=== PATIENT | male | born 1955 | race Caucasian/White ===

== ENCOUNTER 2021-10-26 09:32 | Outpatient (CLI) | payer MEDICAID, SELFPAY | END 2021-10-26 09:33 | disposition home or self-care (01) | LOC: NFLDREF 09:33 | PROVIDERS: PCP Physician Assistant Medical; Visit Provider Physician Assistant Medical | DX: Z00.00 Encounter for general adult medical examination without abnormal findings (principal); E78.5 Hyperlipidemia, unspecified; R51.9 Headache, unspecified; I10 Essential (primary) hypertension; G51.31 Clonic hemifacial spasm, right | CPT/HCPCS: 80053; 80061; 84153 ==

== ENCOUNTER 2021-11-04 06:59 | Outpatient (CLI) | payer MEDICAID, SELFPAY ==
--- NOTE | 2021-11-04 08:15 | CRLHL7_ITS ---
For Patients: As a result of the Century Cures Act, medical imaging exams and procedure reports are released immediately into your electronic medical record. You may view this report before your referring provider. If you have questions, please contact your health care provider. DATE: 11/04/2021. CLINICAL HISTORY: Headaches. TECHNIQUE: Multi-sequence, multiplanar MRI examination of the brain was performed. Contrast: 15mL of Dotarem administered intravenously. COMPARISON: None available. FINDINGS: There is no restricted diffusion in the brain to indicate the presence of acute ischemia. No extra-axial collection, mass effect, or midline shift. Scattered foci of T2 prolongation within the white matter of both hemispheres, nonspecific but most likely reflecting sequela of chronic small vessel ischemia. Parenchymal volume is within normal limits for patient age. Ventricles are normal in size and morphology. There is no pathologic intracranial enhancement. The orbits are unremarkable. The paranasal sinuses are unremarkable. The mastoid air cells are clear. The calvarium is unremarkable. IMPRESSION: 1. No acute intracranial abnormality. 2. Scattered T2 hyperintense foci within the white matter of both hemispheres. This is nonspecific but most likely reflects sequela of chronic small vessel ischemia. Dictated by Rikki Lindsay MD @ 11/06/2021 12:38:00 PM (Electronically Signed)
--- NOTE | 2021-11-04 15:00 | CRLHL7_ITS ---
For Patients: As a result of the Cures Act, medical imaging exams and procedure reports are released immediately into your electronic medical record. You may view this report before your referring provider. If you have questions, please contact your health care provider. INDICATION: Headaches. COMPARISON: None. TECHNIQUE: The carotid circulations and the vertebral arteries in the neck were examined with prakash-scale ultrasound, color-flow and Doppler spectral analysis. Degrees of stenosis were determined using SRU 2002 Consensus Panel Criteria. FINDINGS: Sonographic images demonstrate no evidence of atherosclerotic plaque formation or suspicious soft tissue mass. There was antegrade blood flow demonstrated within the vertebral arteries and the subclavian arteries demonstrate a normal triphasic waveform. The spectral Doppler tracings of the common carotid, internal and external carotid arteries demonstrate no abnormal turbulence or spectral broadening. There was no significant elevation of peak systolic blood flow which would indicate a hemodynamically significant stenosis by NASCET criteria. The ICA/CCA peak systolic velocity ratio measures 1.0 on the right and 1.0 on the left. IMPRESSION: Normal carotid ultrasound. Dictated by Henry Griggs MD @ 11/04/2021 9:24:47 AM (Electronically Signed)
== END 2021-11-04 07:00 | disposition home or self-care (01) ==
PROVIDERS: PCP Physician Assistant Medical; Visit Provider Physician Assistant Medical
DX: R51.9 Headache, unspecified (principal); I67.82 Cerebral ischemia; G51.31 Clonic hemifacial spasm, right
CPT/HCPCS: 70553; 93880

== ENCOUNTER 2021-12-30 09:14 | Outpatient (CLI) | payer MEDICAID, SELFPAY ==
[2021-12-30 10:30] LABS: Albumin* 4.4 g/dL (3.3-5.0)
[2021-12-30 10:31] LABS: Chloride* 104 mmol/L (96-114); Potassium* 4.4 mmol/L (3.6-5.1); Sodium* 136 mmol/L (135-149)
[2021-12-30 10:33] LABS: Bilirubin Total* 0.5 mg/dL (0.1-1.5); Blood Urea Nitrogen* 15 mg/dL (7-30); Cholesterol* 261 mg/dL (90-199); Creatinine* 0.7 mg/dL (0.5-1.5); Estimated Glomerular Filt Rate 103 ml/min; Total Protein* 7.3 g/dL (6.0-8.3)
[2021-12-30 10:34] LABS: Alanine Aminotransferase* 17 U/L (4-50); Alkaline Phosphatase* 107 U/L (40-150); Aspartate Amino Transferase* 21 U/L (12-35); Calcium* 9.4 mg/dL (8.4-10.6); Glucose* 113 mg/dL (60-115); HDL Cholesterol* 47 mg/dL (>=40); LDL Cholesterol Calculated 190 mg/dL (<100); Triglycerides* 121 mg/dL (40-149)
[2021-12-30 10:59] LABS: Carbon Dioxide* 25 mmol/L (20-32)
== END 2021-12-30 09:15 | disposition home or self-care (01) ==
PROVIDERS: PCP Physician Assistant Medical; Visit Provider Physician Assistant Medical
DX: E78.5 Hyperlipidemia, unspecified (principal); I10 Essential (primary) hypertension
CPT/HCPCS: 80053; 80061

== ENCOUNTER 2022-10-03 15:15 | Outpatient (CLI) | payer MEDICARE, MEDICAID, SELFPAY | END 2022-10-03 15:16 | disposition home or self-care (01) | PROVIDERS: PCP Physician Assistant Medical; Visit Provider Physician Assistant Medical | DX: E78.5 Hyperlipidemia, unspecified (principal); I10 Essential (primary) hypertension; R71.8 Other abnormality of red blood cells; R10.9 Unspecified abdominal pain; R73.09 Other abnormal glucose | CPT/HCPCS: 80053; 82607; 82746; 86334 ==

== ENCOUNTER 2022-11-21 20:39 | Outpatient (CLI) | payer OTHER, SELFPAY ==
--- NOTE | 2022-12-07 09:55 | W.PM.SLEEP ---
Sleep Study Details Details Interpreting Provider: Ijeoma Date of Sleep Study: 11/21/22 Sleep Study Details: STUDY TYPE:? Hospital-based without CPAP titration ? BMI:? 32.4 ORDERING PROVIDER:? Rasheed INDICATION:? Concerns about sleep apnea ? SLEEP SUMMARY:? Total sleep time 325 minutes, efficiency 70.7, arousal index 22.3 RESPIRATORY SUMMARY:? Mean oxygen awake 95 asleep 94 minimum 87. 0.1 minute oxygen between 80 and 88% AHI 5.2, RDI 14.6 Supine AHI 7.6, supine RDI 24.4 Nonsupine AHI 3.9, nonsupine RDI 9.5 Supine REM AHI 4.4 PERIODIC LIMB MOVEMENTS OF SLEEP:? Index 53.5, index with arousal 3.5 CARDIAC:? Awake 61, asleep 54, no arrhythmias noted IMPRESSION:? Mild obstructive sleep apnea with supine position dependency. RECOMMENDATION: If patient is symptomatic treatment could consist of AutoSet CPAP, airway expansion surgery, or dental appliance.
== END 2022-11-21 20:40 | disposition home or self-care (01) ==
LOC: SLEEP 20:40
PROVIDERS: PCP Physician Assistant Medical; Visit Provider Physician Assistant Medical
DX: G47.33 Obstructive sleep apnea (adult) (pediatric) (principal)
CPT/HCPCS: 95810

== ENCOUNTER 2023-10-26 09:49 | Outpatient (CLI) | payer OTHER, SELFPAY ==
--- OUTSIDE RECORDS SUMMARY | 2023-10-26 09:53 | XMS_ITS | Clinical Summary ---
Author Organization [employer] [facility] Address [place], [place] [address] Care Team Providers Care Out Of School Hours Care Worker Name Role Phone Pcp, No Primary Care Provider Unavailabl e Social History Tobacco Use Types Packs/Day Years Used Date Smoking Tobacco: Never Assessed Sex and Gender Information Value Date Recorded Sex Assigned at Not on file Gender Identity Not on file Sexual Orientation Not on file Plan of Treatment Health Maintenance Due Date Last Done Comments Tdap 1968 Depression screening for age 12+ 1969 BMI (ht and wt on same day) for age 18+ 08/30/1975 Hepatitis C screening for age 18-79 08/30/1975 Tetanus booster 1977 Colonoscopy through age 75 2002 Lipids for age 45-75 2002 Zoster (shingles) series for age 50+ (1 of 2) 08/30/19 08 Medicare Wellness for age 65+ 2022 Pneumococcal series for age 65+ (1 of 1 - PCV) 023 COVID-19 vaccine series ( - 2022-24 season) 3 Influenza for age 65+ 12/10/2023 Care Teams Out Of School Hours Care Worker Relationship Specialty Start Date End Date Pcp, No . PCP - General 10/06/22
== END 2023-10-26 09:50 | disposition home or self-care (01) ==
PROVIDERS: PCP Physician Assistant Medical; Visit Provider Physician Assistant Medical
DX: E78.5 Hyperlipidemia, unspecified (principal); I10 Essential (primary) hypertension; Z12.5 Encounter for screening for malignant neoplasm of prostate; Z13.29 Encounter for screening for other suspected endocrine disorder; Z11.59 Encounter for screening for other viral diseases
CPT/HCPCS: 80053; 80061; 84443; 86703; 86803; 87086; G0103

== ENCOUNTER 2023-11-07 08:17 | Outpatient (CLI) | payer OTHER, SELFPAY ==
--- OUTSIDE RECORDS SUMMARY | 2023-11-07 08:19 | XMS_ITS | Clinical Summary ---
Author Organization [employer] [facility] Address [place], [place] [address] Care Team Providers Care Paper Bundler Name Role Phone Pcp, No Primary Care Provider Unavailabl e Encounters Date Type Department Care Team Description 11/01/2023 Transcribe Orders [facility] [address] [place] [id number] Argentina Iqbal PA-C 10/26/2023 Orders Only [facility] Scanner 1 scan: (1-Ord) [facility], LAB RESULTS, 10/26/2023 10/26/2023 Orders Only [facility] Scanner 1 scan: (1-Ord) [facility], LAB RESULTS, 10/26/2023 10/26/2023 Orders Only [facility] Scanner 1 scan: (1-Ord) [facility], LAB RESULTS, 10/26/2023 from Last 3 Months Social History Tobacco Use Types Packs/Day Years Used Date Smoking Tobacco: Never Assessed Sex and Gender Information Value Date Recorded Sex Assigned at Not on file Gender Identity Not on file Sexual Orientation Not on file Plan of Treatment Upcoming Encounters Date Type Department Care Team (Late st Contact Info) Description 11/07/2023 9:00 AM CDT Ancillary Procedure [facility] [address] [place] [address] Health Maintenance Due Date Last Done Comments [...] season) 3 Influenza for age 65+ 12/10/2023 Procedures Procedure Name Priority Date/Time Associated Diagnosis Comments SCAN-LABORATORY REPORT 10/26/2023 12:00 AM CDT SCAN-LABORATORY REPORT 10/26/2023 12:00 AM CDT SCAN-LABORATORY REPORT 10/26/2023 12:00 AM CDT from Last 3 Months Results * SCAN-LABORATORY REPORT (10/26/2023 12:00 AM CDT) Only the most recent of3 resultswithin the time period is included. Scanner OTHER from Last 3 Months Care Teams Paper Bundler Relationship Specialty Start Date End Date Pcp, No . PCP - General 10/06/22
[2023-11-07 10:27] VITALS: BP 160/80; PULSE 81; RESP 18
--- NOTE | 2023-11-07 12:12 | W.PM.STED ---
Stress Test Note Date Date of test: 11/07/23 Providers Primary care provider: Argentina Iqbal Stress test physician: Ryan Perez Stress Test Note Stress test ordered: Stress Myoview Indication for test: Chest pain Results discussion: Patient is a very nice 68-year-old gentleman, presents here for a stress Myoview test. Patient speaks Telugu is interpreted by family member. Indication for test is chest pain. Cardiac stress test medical history form is reviewed. I discussed with the patient the risks benefits and side effects of treatment in you like to proceed. Pretest EKG shows normal sinus rhythm with a ventricular rate of 62 blood pressure 130 and 92[address] No acute ST wave changes are noted. Standard stress protocol is done over a 9 minute. Each evening metabolic equivalent of 10.3 Mets with a maximum heart rate of 140. Is 106% of the maximum. Reason for termination was fulfillment of protocol. He did not develop any chest pain shortness of breath then other than a small amount of fatigue, there were no anginal equivalent symptoms. Review of the tracing did not show any evidence of any dysrhythmias, there is no ST wave changes suggestive ischemia. Impression: Negative electrographic portion of stress Myoview, subjectively negative Follow up suggested: Await nuclear images, clinical correlation with these will be needed. Patient left this testing facility in excellent condition, there were no complications
== END 2023-11-07 11:22 | disposition home or self-care (01) ==
LOC: STRESS 08:17
PROVIDERS: PCP Physician Assistant Medical; Visit Provider Family Medicine
DX: R07.9 Chest pain, unspecified (principal)
CPT/HCPCS: 78452; 93016; 93017; A9500

== ENCOUNTER 2024-01-10 14:33 | Outpatient (CLI) | payer OTHER, SELFPAY ==
--- OUTSIDE RECORDS SUMMARY | 2024-01-10 14:37 | XMS_ITS | Clinical Summary ---
Author Organization [facility] Address [place], [place] [address] Care Team Providers Care Crop Adjuster Name Role Phone Pcp, No Primary Care Provider Unavailabl e Encounters Date Type Department Care Team Description 01/08/2024 2:00 PM CDT Office Visit [facility] [address] [place] [address] Drea Hernandez AuD Hearing Aid (DUMONT check) 01/08/2024 Travel 11/21/2023 Telephone [facility] [address] [place] [address] Cardiology, Anw Appointment (PREVENTION TEAM- [place] location if possible) 11/07/2023 9:00 AM CDT Ancillary Procedure [facility] [address] [place] [address] 11/01/2023 Transcribe Orders [facility] [address] [place] [address] Argentina Camarena PA-C 10/26/2023 Orders Only [facility] Scanner 1 scan: (1-Ord) [facility], LAB RESULTS, 10/26/2023 10/26/2023 Orders Only [facility] Scanner 1 scan: (1-Ord) [facility], LAB RESULTS, 10/26/2023 10/26/2023 Orders Only [facility] Scanner 1 scan: (1-Ord) [facility], LAB RESULTS, 10/26/2023 from Last 3 Months [...] PCV) 023 COVID-19 vaccine series ( - 2023- season) 4 Influenza for age 65+ 12/10/2023 Procedures Procedure Name Priority Date/Time Associated Diagnosis Comments NM CARDIAC MPI STRESS TEST Routine 11/07/2023 12:27 PM CDT Chest pain SCAN-LABORATORY REPORT 10/26/2023 12:00 AM CDT SCAN-LABORATORY REPORT 10/26/2023 12:00 AM CDT SCAN-LABORATORY REPORT 10/26/2023 12:00 AM CDT from Last 3 Months Results * NM CARDIAC MPI STRESS TEST (11/07/2023 12:27 PM CDT) Anatomical Region Laterality Modality HEART Ultrasound 11/07/2023 9:05 AM CDT Narrative 11/07/2023 1:06 PM CDT ? Toll -free: [phone] ?[employer] ?MYOCARDIAL PERFUSION IMAGING REPORT REST/STRESS SINGLE ISOTOPE GATED SPECT IMAGING. Patient Name: ?? NEWTON WILLOUGHBY ? Gender: ? M ? Height: ? 66 in Accession #: ?[id number] ?Weight: ? 213 lb Study Date: ? 11/07/2023 9:05:33 AM ? BSA: ?2.05 m? ? ? : ?1955 68 years ? BMI: ?34.38 kg/m? ? ? Ord. Prov.: ? ARGENTINA CAMARENA ? Monitoring Prov.: Ryan Perez [facility] Clinical History: ? Chest pain. No known coronary artery disease. Cardiac Risk Factors: Hypertension and hypercholesterolemia. Cardiac History: ?None known. Beta robyn/calcium channel robyn/nitrate taken today: No. Caffeine/methylxanthine taken within 12 hrs: ?No. Chest pain/discomfort at baseline: ?No. IMPRESSION 1. Myocardial perfusion was normal. 2. Overall left ventricular systolic function was normal without wall motion abnormalities. The post stress LVEF was calculated to be 74 %. 3. The peak heart rate was 140 bpm (91% MPHR); peak blood pressure was 204 mmHg/80 mmHg. 4. Left ventricular cavity size was normal (resting EDV 111 ml). 5. See separate report for EKG intrepretation. 6. There were no prior studies available for comparison. STRESS MPI PROCEDURE The patient was studied utilizing a same day rest/stress protocol. Myocardial perfusion imaging was performed at rest, 26 minutes following the intravenous injection of 8.44 mCi of 99mTc sestamibi. At peak exercise, the patient was injected via IV with 29.9 mCi of 99mTc sestamibi and exercise was continued for 1:00 minute. Stress was stopped because of achieving target heart rate . Gated post-stress tomographic imaging was performed 14 minutes after stress. After image acquisition was completed, data was reconstructed in short, horizontal long and vertical long axis views and tomographic slices were generated. Protocol ??Total Time ? MPHR ?Max RPP Max Workload Joey ?? 9:01 minutes 91% of 154 bpm ??[id number] ?? 10.3 METS ? HR ? BP Baseline 59 bpm ??130 mmHg/92 mmHg ?Peak 140 bpm 204 mmHg/80 mmHg FINDINGS Imaging - The overall quality of the study was good with moderate patient motion on rest and stress studies. - SPECT perfusion images were normal without evidence of ischemia or infarction. - Computer processed gated imaging revealed normal left ventricular size with a calculated LVEF of 74 %. (Lab normals: LVEF >50%, LV Size <150 ml). - There was normal post-stress myocardial thickening and wall motion. - No right ventricular abnormalities were identified. - There was no evidence of abnormal lung or extracardiac activity. - Risk/extent of ischemia per ACC Noninvasive Risk Stratification Guideline: LOW RISK. This study was interpreted and electronically signed by Karis Michel MD on 11/07/2023 1:06:31 PM. Report modified by Karis Michel MD on 11/07/2023 1:26:31 PM. ??Final (Updated) ?? Procedure Note Karis Michel MD - 11/07/2023 Toll -free: [phone] [employer] MYOCARDIAL PERFUSION IMAGING REPORT REST/STRESS SINGLE ISOTOPE GATED SPECT IMAGING. Patient Name: NEWTON WILLOUGHBY Gender: Brigido Height: 66 in Weight: 213 lb Study Date: 11/07/2023 9:05:33 AM BSA: 2.05 m? ? ? : 1955 68 years BMI: 34.38kg/m? ? ? Ord. Prov.: ARGENTINA CAMARENA Monitoring Prov.: Ryan Perez Performing Site [facility] Clinical History: Chest pain. No known coronary artery disease. Cardiac Risk Factors: Hypertension and hypercholesterolemia. Cardiac History: None known. Beta robyn/calcium channel robyn/nitrate taken today: No. Caffeine/methylxanthine taken within 12 hrs: No. Chest pain/discomfort at baseline: No. IMPRESSION 1. Myocardial perfusion was normal. 2. Overall left ventricular systolic function was normal without wallmotion abnormalities. The post stress LVEF was calculated to be 74 %. 3. The peak heart rate was 140 bpm (91% MPHR); peak blood pressure ugm574 mmHg/80 mmHg. 4. Left ventricular cavity size was normal (resting EDV 111 ml). 5. See separate report for EKG intrepretation. 6. There were no prior studies available for comparison. STRESS MPI PROCEDURE The patient was studied utilizing a same day rest/stress protocol.Myocardial perfusion imaging was performed at rest, 26 minutes followingthe intravenous injection of 8.44 mCi of 99mTc sestamibi. At peakexercise, the patient was injected via IV with 29.9 mCi of 99mTc sestamibiand exercise was continued for 1:00 minute. Stress was stopped because ofachieving target heart rate . Gated post-stress tomographic imaging wasperformed 14 minutes after stress. After image acquisition was completed,data was reconstructed in short, horizontal long and vertical long axisviews and tomographic slices were generated. Protocol Total Time MPHR Max RPP Max Workload Joey 9:01 minutes 91% of 154 bpm 05924 10.3 METS HR BP Baseline 59 bpm 130 mmHg/92 mmHg Peak 140 bpm 204 mmHg/80 mmHg FINDINGS Imaging - The overall quality of the study was good with moderate patient motionon rest and stress studies. - SPECT perfusion images were normal without evidence of ischemia orinfarction. - Computer processed gated imaging revealed normal left ventricular sizewith a calculated LVEF of 74 %. (Lab normals: LVEF >50%, LV Size <150 ml). - There was normal post-stress myocardial thickening and wall motion. - No right ventricular abnormalities were identified. - There was no evidence of abnormal lung or extracardiac activity. - Risk/extent of ischemia per ACC Noninvasive Risk StratificationGuideline: LOW RISK. This study was interpreted and electronically signed by Karis Michel MD on11/07/2023 1:06:31 PM. Report modified by Karis Michel MD on 11/07/2023 1:26:31 PM. Final (Updated) Argentina Camarena PA-C NM * SCAN-LABORATORY REPORT (10/26/2023 12:00 AM CDT) Only the most recent of3 resultswithin the time period is included. Scanner OTHER from Last 3 Months Care Teams Crop Adjuster Relationship Specialty Start Date End Date Pcp, No . PCP - General 10/06/22
--- NOTE | 2024-01-15 14:01 | ONC.NURNOTE ---
[facility] received referral from PCP, per pump operator platelet count is not low. It would be up to the surgeon to determine if safe to proceed.
== END 2024-01-10 14:34 | disposition home or self-care (01) ==
PROVIDERS: PCP Physician Assistant Medical; Visit Provider Physician Assistant Medical
DX: Z01.818 Encounter for other preprocedural examination (principal); E78.5 Hyperlipidemia, unspecified; D69.6 Thrombocytopenia, unspecified; I10 Essential (primary) hypertension
CPT/HCPCS: 80053; 80061; 85045

== ENCOUNTER 2024-01-15 19:26 | Emergency (ER) | payer OTHER, SELFPAY ==
[2024-01-15 19:36] VITALS: BP 151/86; PULSE 84; RESP 16; TEMP 36.9; O2SAT 98; BMI 31.3
--- NOTE | 2024-01-15 19:52 | ED.GENADULT ---
HPI - General Adult General Chief complaint: Chemical Exposure Stated complaint: hydrolic fluid on face Time Seen by Provider: 01/15/24 19:40 History of Present Illness HPI narrative: This 68-year-old male comes in for evaluation of exposure to a hydraulic fluid prior to arrival. He states that the hose containing the hydraulic fluid failed to hand started to spray. He took some of this fluid into his face and he feels like some of it got into his eye. He did irrigate his eyes with water after this happened. Currently he feels normal except for some mild irritation of his eyes. Related Data Previous Rx's ?Medication ?Instructions ?Recorded losartan 25 mg tablet 25 mg PO QDAY #90 tabs 10/26/23 rosuvastatin 40 mg tablet 40 mg PO QDAY #90 tabs 10/26/23 Allergies Allergy/AdvReac Type Severity Reaction Status Date / Time No Known Drug Allergies Allergy Verified 01/10/24 14:10 Review of Systems Status of ROS: Reports: 10 or more systems reviewed and unremarkable except as noted in History and below Narrative: Constitutional: No fevers, no weight gain or loss. Eyes: No discharge. No vision changes. Mild irritation. HENT: No congestion, no sore throat, no ear pain. Cardiovascular: No chest pain, no palpitations. Respiratory: No shortness of breath, no wheezes, no cough. Gastrointestinal: No abdominal pain, no vomiting, no diarrhea. Genitourinary: No dysuria, no hematuria. Musculoskeletal: Normal range of motion. Skin: No rashes, no pruritis. Neurological: No dizziness, weakness, sensory change, speech change. Endo/Heme/Allergies: No bruising or bleeding. No polydipsia. Pysch: no suicidality, no anxiety, no insomnia. All other systems reviewed and are negative. [facility] Medical History (Updated 01/15/24 @ 20:01 by Kevin Suh MD) Chest pain (~10/2023) ?R07.9 - Chest pain, unspecified (ICD-10) Abnormal red blood cells ?R71.8 - Other abnormality of red blood cells (ICD-10) Family history of colon cancer ?Z80.0 - Family history of malignant neoplasm of digestive organs (ICD-10) Headache ?R51.9 - Headache, unspecified (ICD-10) Family History (Updated 01/10/24 @ 14:45 by Argentina Iqbal PA-C) Father Coronary artery disease Mother High cholesterol Asthma Son Colon cancer Brother Colon cancer High cholesterol Social History (Updated 10/27/21 @ 10:44 by Argentina Iqbal PA-C) Narrative: Patient is . Primary language is Citizen [place]. He has lived most of his life in [place]. . Recently moved to [place], resides with his son Tato and [id number] Nan and their children. 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 HEENT: Normocephalic, atraumatic. Eyes appear normal without any sign of foreign object or erythema. Neck: Normal range of motion. Nontender. Supple. Heart: Regular. No murmurs. Normal rate. Intact distal pulses. Lungs: Clear to auscultation. No chest discomfort. No wheezes, rhonchi, or rales. Abdomen: Normal bowel sounds. Nontender. No rebound tenderness. Genitalia: Deferred. Back: No midline tenderness. Normal range of motion. Extremities: Normal range of motion. No injury. Skin: Intact. No rash. Warm. No erythema or pallor. Neurologic: No altered sensation. No weakness. Alert and oriented. Psychiatric: No suicidality. No anxiety or depression. No insomnia. Nursing notes and vitals signs are reviewed. Const: Vital Signs, click to edit/add: Vital Signs - 24 hr 01/15/24 19:36 Temperature 98.4 F Pulse Rate [Pulse Oximeter] 84 Respiratory Rate 16 Blood Pressure [Ri ght Upper Arm] 151/86 H Pulse Oximetry 98 Oxygen Delivery Me thod Room Air Course Vital Signs Vital signs: Initial Vital Signs Temperature 98.4 F 01/15/24 19:36 Temperature Source Temporal Artery Scan 01/15/24 19:36 Pulse Rate 84 01/15/24 19:36 Respiratory Rate 16 01/15/24 19:36 Blood Pressure 151/86 H 01/15/24 19:36 Blood Pressure Mean 107 H 01/15/24 19:36 Blood Pressure Position Sitting 01/15/24 19:36 Pulse Oximetry 98 01/15/24 19:36 Oxygen Delivery Method Room Air 01/15/24 19:36 Vital Signs Temperature 98.4 F 01/15/24 19:36 Pulse Rate 84 01/15/24 19:36 Respiratory Rate 16 01/15/24 19:36 Blood Pressure 151/86 H 01/15/24 19:36 Pulse Oximetry 98 01/15/24 19:36 Oxygen Delivery Method Room Air 01/15/24 19:36 Temperature 98.4 F 01/15/24 19:36 Pulse Rate 84 01/15/24 19:36 Respiratory Rate 16 01/15/24 19:36 Blood Pressure 151/86 H 01/15/24 19:36 Pulse Oximetry 98 01/15/24 19:36 Oxygen Delivery Method Room Air 01/15/24 19:36 Medical Decision Making MDM Narrative Medical decision making narrative: This patient had exposure to hydraulic fluid in both eyes. He did irrigate for about 5 minutes and states now that he feels minimal discomfort. Poison control was contacted and stated that there is no real concern about this type of fluid it as it is pH is normal. The main treatment is to recommend irrigation. The patient is okay to be discharged home. He did receive a prescription for flurbiprofen ophthalmic solution for symptomatic relief. Discharge Plan Discharge Clinical Impression: Chemical exposure of eye Patient Disposition: Home, Self-Care Additional Instructions: Use medicine as needed and indicated. Activity as tolerated. Follow up with MD return if worsening. Prescriptions: No Action losartan 25 mg tablet 25 mg PO QDAY Qty: 90 3RF rosuvastatin 40 mg tablet 40 mg PO QDAY Qty: 90 3RF Rx Instructions: once daily for cholesterol Follow Up/Referrals: Argentina Iqbal PA-C [Primary Care Provider] - Stand Alone Forms: [employer] Info Instructions
--- OUTSIDE RECORDS SUMMARY | 2024-01-15 20:15 | XMS_ITS | Clinical Summary ---
Author Organization [facility] Address [place], [place] [address] Care Team Providers Care Egg Caser Name Role Phone Pcp, No Primary Care Provider Unavailabl e Encounters Date Type Department Care Team Description 01/11/2024 Lab Requisition [facility] [phone] Argentina Camarena PA-C 01/08/2024 2:00 PM CDT Office Visit [facility] [address] [place] [address] [facility] 01/08/2024 Travel 11/21/2023 Telephone [facility] [place] [address] [facility] [address] [place] [address] Cardiology, Anw Appointment (PREVENTION TEAM- [place] location if possible) 11/07/2023 9:00 AM CDT Ancillary Procedure [facility] [place] [facility] [address] [place] [address] 11/01/2023 Transcribe Orders [facility] [place] [address] [place] [address] Argentina Camarena PA-C 10/26/2023 Orders Only [facility] Scanner 1 scan: (1-Ord) [facility], LAB RESULTS, 10/26/2023 10/26/2023 Orders Only [facility] Scanner 1 scan: (1-Ord) [facility], LAB RESULTS, 10/26/2023 10/26/2023 Orders Only [facility] Scanner 1 scan: (1-Ord) [facility], LAB RESULTS, 10/26/2023 from Last 3 Months [...] 1 - PCV) 023 COVID-19 vaccine series (2023- season) 4 Influenza for age 65+ 12/10/2023 Procedures Procedure Name Priority Date/Time Associated Diagnosis Comments LAB TRACKING EVENT Routine 01/10/2024 3: 12 PM CDT PERIPHERAL BLD MORPHOLOGY Routine 01/10/2024 3:12 PM CDT NM CARDIAC MPI STRESS TEST Routine 11/07/2023 12:27 PM CDT Chest pain SCAN-LABORATORY REPORT 10/26/2023 12:00 AM CDT SCAN-LABORATORY REPORT 10/26/2023 12:00 AM CDT SCAN-LABORATORY REPORT 10/26/2023 12:00 AM CDT from Last 3 Months Results * LAB TRACKING EVENT (01/10/2024 3:12 PM CDT) Other (Other) Client Collect / Unknown 01/10/2024 3:12 PM CDT 01/11/2024 1:16 PM CDT Argentina Camarena PA-C LAB BILL ONLY [facility] LABORAT[facility]-CENTRAL LABORATORY [address] [place] [address], * PERIPHERAL BLD MORPHOLOGY (01/10/2024 3:12 PM CDT) Case Report Special Hematology Report ? Case: [id number] ? Authorizing Provider: ??Argentina Camarena PA-C ?Collected: ? 01/10/2024 1512 ? Ordering Location: ? [facility] ?Received: ?01/11/2024 [facility] ? Pathologist: ? Frankie Srinivasan, ? MD ? Specimen: ?Peripheral Blood ? 01/12/2024 2:27 PM CDT [facility] LABORATORY-C ENTRAL LABORATORY Final Diagnosis PERIPHERAL BLOOD: 1. Minimal thrombocytopenia 2. See comment 01/12/2024 2:27 PM T [facility] Comment The specific etiology of the minimal thrombocytopenia is not evident from the blood smear findings. The platelets are well granulated and show no evidence of increased platelet clumping. No microangiopathic red cell changes are present. No dysgranulopoiesis or circulating blasts are seen. Potential causes of thrombocytopenia include medication effect, infection, autoimmune disease and splenomegaly. Platelet count values between 100 and 150 x 109/L are also found in apparently healthy people, who??have <10% chance of developing more significant thrombocytopenia (persistent platelet count <100 x 109/L) over 10-year follow-up. Reference: Blood 113: 2386, 2009. This case was also reviewed by Desiree Madison [place], MS ([facility]). 01/12/2024 2:27 PM T [facility] Clinical Information The patient is a 68-year-old male. Per CBC scan: Thrombocytopenia. Peripheral blood morphology September 2022 ([id number]) was within normal limits. 01/12/2024 2:27 PM T [facility] CBC and Differential HEMATOLOGY PARAMETERS Tested at: ??[facility] ? RESULTS ??EXPECTED VALUES WBC: ? 6.6 ?4.5-52l3366/cumm ? RBC: ? 4.94 ? 4.30-5.90 mil/cumm HGB: ? 14.4 ? 13.5-17.5 gm/di ? HCT: ? 42.8 ? 37-53% ? MCV: ? 86.6 ? 80-100 fl ? NORMOCYTIC MCH: ? 29.1 ? 26-34 pg ? MCHC: ?33.6 ? 32-36 gm/dl ? NORMOCHROMIC RDW: ? 13.2 ? 11.5-15.5% ? PLT: ? 135 ?140-196a9423/uL ? DECREASED Retic: ?? 2.21 ? 0.5-1.5% ?ELEVATED Differential ?Absolute (%) ?Expected (%) ?(x10*9/L) ? (x10*9/L) Neutrophils: ?3.63 (55.1) ? 1.7-7.0 (42-72%) ? Lymphocytes: ?2.28 (34.6) ? 0.9-2.9 (20-44%) ?? Monocytes: ?0.53 (8) ? <0.9 (0-11%) ? Eosinophils: ?0.12 (1.8) ? <0.5 (0-2%) ? Basophils: ?0.03 (.5) ?<0.3 (<3.0%) ? 01/12/2024 2:27 PM CDT [facility] Microscopic Description The final diagnosis is based on microscopic examination of an appropriately stained blood smear. 01/12/2024 2:27 PM CDT [facility] Additional Information Interpreted at [facility] [employer] [facility], Central Laboratory - [address] [facility] [address], [place] [address] 01/12/2024 2:27 PM CDT [facility] Blood (Peripheral Blood) 01/10/2024 3:12 PM CDT 01/11/2024 2:42 PM CDT Argentina Camarena PA-C HEMATOLOGY [facility]-C[facility]AL LABORATORY [address] [place] [address], [place] * NM CARDIAC MPI STRESS TEST (11/07/2023 12:27 PM CDT) Anatomical Region Laterality Modality HEART Ultrasound 11/07/2023 9:05 AM CDT Narrative 11/07/2023 1:06 PM CDT ? Toll -free: [phone] ?[employer] ?MYOCARDIAL PERFUSION IMAGING REPORT REST/STRESS SINGLE ISOTOPE GATED SPECT IMAGING. Patient Name: ?? NEWTON WILLOUGHBY ? Gender: ? M ? Height: ? 66 in Accession #: ?[id number] ?Weight: ? 213 lb Study Date: ? 11/07/2023 9:05:33 AM ? BSA: ?2.05 m? ? ? : ?1955 68 years ? BMI: ?34.38 kg/m? ? ? Ord. Prov.: ? ARGENTINA CAMARENA ? Monitoring Prov.: Ryan Perez Performing Site [facility] Clinical History: ? Chest pain. No known [...] ?? 9:01 minutes 91% of 154 bpm ??[id number] ?? 10.3 METS ? HR ? BP [...] Karis Michel MD - 11/07/2023 Toll -free: [phone] [facility] MYOCARDIAL PERFUSION IMAGING REPORT REST/STRESS SINGLE ISOTOPE GATED SPECT IMAGING. Patient Name: NEWTON WILLOUGHBY Gender: Brigido Height: 66 in Weight: 213 lb Study Date: 11/07/2023 9:05:33 AM BSA: 2.05 m? ? ? : 1955 68 years BMI: 34.38kg/m? ? ? Ord. Prov.: ARGENTINA CAMARENA Monitoring Prov.: Ryan Perez [facility] Clinical History: Chest pain. No known coronary [...] 140 bpm (91% MPHR); peak blood pressure etf159 mmHg/80 mmHg. 4. Left ventricular cavity size [...] Joey 9:01 minutes 91% of 154 bpm [id number] 10.3 METS HR BP Baseline 59 bpm [...] OTHER from Last 3 Months Care Teams Egg Caser Relationship Specialty Start Date End Date Pcp, No . PCP - General 10/06/22
== END 2024-01-15 20:19 | disposition home or self-care (01) ==
LOC: ED 20:14
PROVIDERS: Emergency Provider Emergency Medicine Emergency Medical Services; PCP Physician Assistant Medical
DX: Z77.098 Contact with and (suspected) exposure to other hazardous, chiefly nonmedicinal, chemicals (principal)
CPT/HCPCS: 99283; 99284; A9270

== ENCOUNTER 2024-03-06 10:32 | Outpatient (CLI) | payer OTHER, SELFPAY ==
--- OUTSIDE RECORDS SUMMARY | 2024-03-06 10:34 | XMS_ITS | Referral Summary ---
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 Driver Name Role Phone JaradbeniPeñaAnali PA-C Primary Care Provider Encounters Date Type Department Care Team Description 01/22/2024 5:44 AM CDT - 01/25/2024 12:00 PM CDT Hospital Encounter [facility] [address] [place] [address] Guicho Tobin MD S/P lumbar fusion (Primary Dx) Discharge Disposition: Home or Self Care 01/22/2024 7:50 AM CDT Anesthesia Event [facility] [address] [place] [address] Dalia Alexander MD 01/22/2024 Travel 01/22/2024 6:00 AM CDT Office Visit [facility] [address] [place] [phone] Harriet Orozco 01/22/2024 7:30 AM CDT - 01/22/2024 12:10 PM CDT Surgery [facility] [address] [place] [address] Guicho Tobin MD L4-5 bilateral decompressive laminectomies with medial facetectomies with decompression and exposure of the L4 and L5 nerve roots bilaterally L5-S1 bilateral decompressive laminectomies with medial facetectomies and decompression and exposure of the L5 and S1 nerve roots [facility] pedicle screws bilaterally from L4-S1 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 Active losartan (COZAAR) 25 MG tablet Take 25 mg by mouth daily. Active methocarbamol (ROBAXIN) 750 MG tabletIndicatio ns:S/P lumbar fusion Take 1 tablet (750 mg) by mouth every 6 hours as needed for muscle spasms. 60 tablet 1 01/23/2024 Active oxyCODONE (ROXICODONE) 5 MG tabletIndicatio ns:S/P lumbar fusion Take 1-2 tablets (5-10 mg) by mouth every 3 hours as needed for moderate pain. 32 tablet 01/23/2024 Active Active Problems Problem Noted Date Diagnosed Date S/P lumbar fusion 01/22/2024 Social History Tobacco Use Types Packs/Day Years Used Date Smoking Tobacco: Never Smokeless Tobacco: Never Tobacco Cessation:Counseling Given: Not Answered Alcohol Use Standard Drinks/Week Comments Never 0 (1 standard drink = 0.6 oz pur e alcohol) Food Insecurity Answer Date Recorded Within the past 12 months, d id you worry that your food would run out before you got money to buy more? No 01/23/2024 Within the past 12 months, d id the food you bought just not last and you didn t have money to get more? No 01/23/2024 Housing Stability Answer Date Recorded Do you have housing? (Housin g is defined as stable permanent housing and does not include staying ouside in a car, in a tent, in an abandoned building, in an overnight intermediate, or couch-surfing.) Yes 01/23/2024 Are you worried about losing your housing? No 01/23/2024 Financial Resource Strain Answer Date R ecorded Within the past 12 months, h ave you or your family members you live with been unable to get utilities (heat, electricity) when it was really needed? No 01/23/2024 Transportation Needs Answer Date Record ed Within the past 12 months, h as lack of transportation kept you from medical appointments, getting your medicines, non-medical meetings or appointments, work, or from getting things that you need? No 01/23/2024 Interpersonal Safety Answer Date Record ed Do you feel physically and e motionally safe where you currently live? Yes 01/23/2024 Within the past 12 months, h ave you been hit, slapped, kicked or otherwise physically hurt by someone? No 01/23/2024 Within the past 12 months, h ave you been humiliated or emotionally abused in other ways by your partner or ex-partner? No 01/23/2024 Sex and Gender Information Value Date Recorded Sex Assigned at Not on file Legal Sex Male 11:27 AM CDT Gender Identity Not on file Sexual Orientation Not on file Last Filed Vital Signs Vital Sign Reading Time Taken Comments Blood Pressure 138/82 01/25/2024 7:54 AM CDT Pulse 82 01/25/2024 7:54 AM CDT Temperature 36.8 C (98.3 F) 01/25/2024 7:54 AM CDT Respiratory Rate 16 01/25/2024 7:54 AM CDT Oxygen Saturation 96% 01/25/2024 7:54 AM CDT Inhaled Oxygen Concentration - - Weight 94.8 kg (208 lb 15.9 oz) 01/22/2024 4:45 PM CDT Height 172.7 cm (5' 8) 01/22/2024 5:51 AM CDT Body Mass Index 31.78 01/22/2024 5:51 AM CDT Plan of Treatment Not on file Medical Devices Implanted Type Area Senior Sales Assistant Device Identifier Shelf Expiration Date Model / Serial / Lot Set Screw Implanted:Qt y: 6 on 01/22/2024 by Guicho Tobin MD at [facility] Metallic Hardware/An chor N/A: Spine Lumbar [employer] [id number] / / [id number] 2023 7.5 X 50 Screw Implanted:Qt y: 4 on 01/22/2024 by Guicho Tobin MD at [facility] Metallic Hardware/An chor N/A: Spine Lumbar [employer] [id number] 5-050 8001 7.5 X 45 Screw Implanted:Qt y: 2 on 01/22/2024 by Guicho Tobin MD at [facility] Metallic Hardware/An chor N/A: Spine Lumbar [employer] [id number] 5-045 8001 5.5 X 70mm Cocr Robert Implanted:Qt y: 2 on 01/22/2024 by Guicho Tobin MD at [facility] Metallic Hardware/An chor N/A: Spine Lumbar [employer] [id number] -[id number] 8001 Graft [employer]agen Matrix 1X1 - [id number] Implanted:Qt y: 1 on 01/22/2024 by Guicho Tobin MD at [facility] Other N/A: Spine Lumbar [employer] [id number] 06/07/2026 [id number] / / [id number] Procedures Procedure Name Priority Date/Time Associated Diagnosis Comments GLUCOSE BY METER Routine 01/24/2024 6:45 AM CDT MR BRAIN W/O & W CONTRAST Routine 01/24/2024 4:37 AM CDT GLUCOSE BY METER Routine 01/23/2024 6:[address] HEAD PERFUSION W CONTRAST STAT 01/22/2024 1:09 PM CDT CTA HEAD NECK W CONTRAST STAT 01/22/2024 1:[address] HEAD W/O CONTRAST STAT 01/22/2024 1:02 PM CDT AMMONIA Routine 01/22/2024 12:51 PM CDT COMPREHENSIVE METABOLIC PANEL STAT 01/22/2024 12:51 PM CDT TROPONIN T, HIGH SENSITIVITY STAT 01/22/2024 12:51 PM CDT INR STAT 01/22/2024 12:51 PM CDT PARTIAL THROMBOPLASTIN TIME STAT 01/22/2024 12:51 PM CDT CBC WITH PLATELETS STAT 01/22/2024 12 :51 PM CDT GLUCOSE BY METER Routine 01/22/2024 12:4 5 PM CDT XR SURGERY ADELITA FLUORO LESS THAN 5 MIN W STILLS Routine 01/22/2024 11:20 AM CDT XR SURGERY OARM Routine 01/22/2024 9:28 AM CDT ANE AIRWAY ETT PERFORMABLE Routine 01/22/2024 8:02 AM CDT FUSION, SPINE, LUMBAR, 2 LEVELS, POSTERIOR APPROACH, USING OPTICAL TRACKING SYSTEM 01/22/2024 7:54 AM CDT Radiculopathy, lumbosacral region Spinal stenosis, 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 [facility] GLUCOSE BY METER POCT 126(H) 70 - 99 mg/dL 01/24/2024 6:52 AM CDT RH LABORATORY POC Blood, Capillary BLOOD SPECIMEN / Unknown 01/24/2024 6:45 AM CDT 01/24/2024 6:52 AM CDT Guicho Tobin MD LAB - BEAKER POCT nal Result LABORATORY [facility] [address] Lab (1st floor, no room number) [place] [id number] * MR Brain w/o & w Contrast (01/24/2024 4:37 AM CDT) Anatomical Region Laterality Modality Head, SUBRAD MR NEURO, UMP MR NEURO, RAD MR Magnetic Resonance 01/24/2024 4:37 AM CDT Impressions 01/24/2024 4:53 AM CDT IMPRESSION: 1. No acute intracranial process. 2. Generalized brain atrophy and presumed microvascular ischemic changes as detailed above. Narrative 01/24/2024 4:53 AM CDT EXAM: MR BRAIN W/O and W CONTRAST LOCATION: [facility] DATE: 01/24/2024 INDICATION: slurred speech after surgery; resolved. Eval for stroke. COMPARISON: 01/22/2024 CONTRAST: 9.5 mL Gadavist TECHNIQUE: Routine multiplanar multisequence head MRI without and with intravenous contrast. FINDINGS: INTRACRANIAL CONTENTS: No acute or subacute infarct. No mass, acute hemorrhage, or extra-axial fluid collections. Scattered nonspecific T2/FLAIR hyperintensities within the cerebral white matter most consistent with mild chronic microvascular ischemic change. Mild generalized cerebral atrophy. No hydrocephalus. Normal position of the cerebellar tonsils. No pathologic contrast enhancement. SELLA: No abnormality accounting for technique. OSSEOUS STRUCTURES/SOFT TISSUES: Normal marrow signal. The major intracranial vascular flow voids are maintained. ORBITS: No abnormality accounting for technique. SINUSES/MASTOIDS: Mucosal thickening primarily involving the ethmoid air cells. No middle ear or mastoid effusion. Procedure Note Landy Alegria MD - 01/24/2024 EXAM: MR BRAIN W/O and W CONTRAST LOCATION: [facility] DATE: 01/24/2024 INDICATION: slurred speech after surgery; resolved. Eval for stroke. COMPARISON: 01/22/2024 CONTRAST: 9.5 mL Gadavist TECHNIQUE: Routine multiplanar multisequence head MRI without and withintravenous contrast. FINDINGS: INTRACRANIAL CONTENTS: No acute or subacute infarct. No mass, acutehemorrhage, or extra-axial fluid collections. Scattered nonspecificT2/FLAIR hyperintensities within the cerebral white matter most consistentwith mild chronic microvascular ischemic change. Mild generalized cerebral atrophy. No hydrocephalus. Normalposition of the cerebellar tonsils. No pathologic contrast enhancement. SELLA: No abnormality accounting for technique. OSSEOUS STRUCTURES/SOFT TISSUES: Normal marrow signal. The majorintracranial vascular flow voids are maintained. ORBITS: No abnormality accounting for technique. SINUSES/MASTOIDS: Mucosal thickening primarily involving the ethmoid aircells. No middle ear or mastoid effusion. IMPRESSION: 1. No acute intracranial process. 2. Generalized brain atrophy and presumed microvascular ischemic changesas detailed above. us Chilo Garcia MD IMG MRI ORDERABLES Final Res ult * CT Head Perfusion w Contrast (01/22/2024 1:09 PM CDT) Anatomical Region Laterality Modality Head, SUBRAD CT NEURO, SUBRAD CT NEURO, UMP CT N EURO Computed Tomography Impressions 01/22/2024 1:57 PM CDT IMPRESSION: 1. Head CT demonstrates no acute intracranial pathology. 2. Head CTA demonstrates patent major intracranial arteries without large vessel occlusion, high-grade stenosis or aneurysm. Mild to moderate focal stenosis in the V4 segment of the right vertebral artery. 3. Neck CTA demonstrates no stenosis of the major cervical arteries. 4. CT perfusion demonstrates no evidence of ischemia or infarct. ANASTACIO BRODERICK MD SYSTEM ID: [id number] Narrative 01/22/2024 1:57 PM CDT EXAM: CTA HEAD NECK W CONTRAST, CT HEAD PERFUSION W CONTRAST, CT HEAD W/O CONTRAST 01/22/2024 1:04 PM HISTORY: Code Stroke to evaluate for potential thrombolysis and thrombectomy. PLEASE READ IMMEDIATELY. COMPARISON: No prior similar studies TECHNIQUE: HEAD CT:Using multidetector thin collimation helical acquisition technique, axial, coronal and sagittal CT images from the skull base to the vertex were obtained without intravenous contrast. Silo Painter (topogram) image(s) also obtained and reviewed. HEAD and NECK CTA: During rapid bolus intravenous injection of nonionic contrast material, axial images were obtained using thin collimation multidetector helical technique from the base of the upper aortic arch through the [place]. This CT angiogram data was reconstructed at thin intervals with mild overlap. Images were sent to the 3D workstation, and 3D reconstructions were obtained. The axial source images, multiplanar reformations, 3D reconstructions in both maximum intensity projection display and volume rendered models were reviewed, with reconstructions performed by the technologist and the radiologist. HEAD CT PERFUSION: Dynamic perfusion CT of the brain was performed at multiple levels; perfusion was measured and imaged during rapid bolus intravenous injection of nonionic iodinated contrast medium. Images were post-processed, reconstructed, and reviewed. CONTRAST: 67mL [id number] (accession [id number]), [id number] (accession [id number]) FINDINGS: Head CT demonstrates no intracranial hemorrhage, mass effect, or midline shift. Solorzano/white matter differentiation in both cerebral hemispheres is preserved. Ventricles are proportionate to the cerebral sulci. The basal cisterns are clear. The bony calvaria and the bones of the skull base are normal. Mild scattered paranasal sinus because of thickening. Mastoid air cells are clear Head CTA demonstrates patent major intracranial arteries. Mild to moderate focal stenosis in the V4 segment of the right vertebral artery. Neck CTA demonstrates patent major cervical arteries. No high-grade stenosis or dissection. Hypoplastic left vertebral artery terminates as PICA. No acute finding in the visualized neck soft tissues, or in the superior mediastinum/thorax. CT perfusion demonstrates no evidence of ischemia or acute infarction. There is normal perfusion of the brain at the visualized levels. Procedure Note Anastacio Broderick MD - 01/22/2024 EXAM: CTA HEAD NECK W CONTRAST, CT HEAD PERFUSION W CONTRAST, CT HEAD W/O CONTRAST 01/22/2024 1:04 PM HISTORY: Code Stroke to evaluate for potential thrombolysis and thrombectomy. PLEASE READ IMMEDIATELY. COMPARISON: No prior similar studies TECHNIQUE: HEAD CT:Using multidetector thin collimation helical acquisition technique, axial, coronal and sagittal CT images from the skull base to the vertex were obtained without intravenous contrast. Silo Painter (topogram) image(s) also obtained and reviewed. HEAD and NECK CTA: During rapid bolus intravenous injection of nonionic contrast material, axial images were obtained using thin collimation multidetector helical technique from the base of the upper aortic arch through the [place]. This CT angiogram data was reconstructed at thin intervals with mild overlap. Images were sent to the 3D workstation, and 3D reconstructions were obtained. The axial source images, multiplanar reformations, 3D reconstructions in both maximum intensity projection display and volume rendered models were reviewed, with reconstructions performed by the technologist and the radiologist. HEAD CT PERFUSION: Dynamic perfusion CT of the brain was performed at multiple levels; perfusion was measured and imaged during rapid bolus intravenous injection of nonionic iodinated contrast medium. Images were post-processed, reconstructed, and reviewed. CONTRAST: 67mL Isovue-370 (accession [id number]), [id number] (accession [id number]) FINDINGS: Head CT demonstrates no intracranial hemorrhage, mass effect, or midline shift. Solorzano/white matter differentiation in both cerebral hemispheres is preserved. Ventricles are proportionate to the cerebral sulci. The basal cisterns are clear. The bony calvaria and the bones of the skull base are normal. Mild scattered paranasal sinus because of thickening. Mastoid air cells are clear Head CTA demonstrates patent major intracranial arteries. Mild to moderate focal stenosis in the V4 segment of the right vertebral artery. Neck CTA demonstrates patent major cervical arteries. No high-grade stenosis or dissection. Hypoplastic left vertebral artery terminates as PICA. No acute finding in the visualized neck soft tissues, or in the superior mediastinum/thorax. CT perfusion demonstrates no evidence of ischemia or acute infarction. There is normal perfusion of the brain at the visualized levels. IMPRESSION: 1. Head CT demonstrates no acute intracranial pathology. 2. Head CTA demonstrates patent major intracranial arteries without large vessel occlusion, high-grade stenosis or aneurysm. Mild to moderate focal stenosis in the V4 segment of the right vertebral artery. 3. Neck CTA demonstrates no stenosis of the major cervical arteries. 4. CT perfusion demonstrates no evidence of ischemia or infarct. ANASTACIO BRODERICK MD SYSTEM ID: [id number] Dalia Alexander MD [facility] CT ORDERABLES Final Result * CTA Head Neck with Contrast (01/22/2024 1:04 PM CDT) Anatomical Region Laterality Modality Head, SUBRAD CT NEURO, SUBRA D CT NEURO, UMP CT NEURO, RAD CT Computed Tomography Impressions 01/22/2024 1:57 PM CDT IMPRESSION: 1. Head CT demonstrates no acute intracranial pathology. 2. Head CTA demonstrates patent major intracranial arteries without large vessel occlusion, high-grade stenosis or aneurysm. Mild to moderate focal stenosis in the V4 segment of the right vertebral artery. 3. Neck CTA demonstrates no stenosis of the major cervical arteries. 4. CT perfusion demonstrates no evidence of ischemia or infarct. ANASTACIO BRODERICK MD SYSTEM ID: [id number] Narrative 01/22/2024 1:57 PM CDT EXAM: CTA HEAD NECK W CONTRAST, CT HEAD PERFUSION W CONTRAST, CT HEAD W/O CONTRAST 01/22/2024 1:04 PM HISTORY: Code Stroke to evaluate for potential thrombolysis and thrombectomy. PLEASE READ IMMEDIATELY. COMPARISON: No prior similar studies TECHNIQUE: HEAD CT:Using multidetector thin collimation helical acquisition technique, axial, coronal and sagittal CT images from the skull base to the vertex were obtained without intravenous contrast. Silo Painter (topogram) image(s) also obtained and reviewed. HEAD and NECK CTA: During rapid bolus intravenous injection of nonionic contrast material, axial images were obtained using thin collimation multidetector helical technique from the base of the upper aortic arch through the [place]. This CT angiogram data was reconstructed at thin intervals with mild overlap. Images were sent to the 3D workstation, and 3D reconstructions were obtained. The axial source images, multiplanar reformations, 3D reconstructions in both maximum intensity projection display and volume rendered models were reviewed, with reconstructions performed by the technologist and the radiologist. HEAD CT PERFUSION: Dynamic perfusion CT of the brain was performed at multiple levels; perfusion was measured and imaged during rapid bolus intravenous injection of nonionic iodinated contrast medium. Images were post-processed, reconstructed, and reviewed. CONTRAST: 67mL Isovue-370 (accession [id number]), [id number] (accession [id number]) FINDINGS: Head CT demonstrates no intracranial hemorrhage, mass effect, or midline shift. Solorzano/white matter differentiation in both cerebral hemispheres is preserved. Ventricles are proportionate to the cerebral sulci. The basal cisterns are clear. The bony calvaria and the bones of the skull base are normal. Mild scattered paranasal sinus because of thickening. Mastoid air cells are clear Head CTA demonstrates patent major intracranial arteries. Mild to moderate focal stenosis in the V4 segment of the right vertebral artery. Neck CTA demonstrates patent major cervical arteries. No high-grade stenosis or dissection. Hypoplastic left vertebral artery terminates as PICA. No acute finding in the visualized neck soft tissues, or in the superior mediastinum/thorax. CT perfusion demonstrates no evidence of ischemia or acute infarction. There is normal perfusion of the brain at the visualized levels. Procedure Note Anastacio Broderick MD - 01/22/2024 EXAM: CTA HEAD NECK W CONTRAST, CT HEAD PERFUSION W CONTRAST, CT HEAD W/O CONTRAST 01/22/2024 1:04 PM HISTORY: Code Stroke to evaluate for potential thrombolysis and thrombectomy. PLEASE READ IMMEDIATELY. COMPARISON: No prior similar studies TECHNIQUE: HEAD CT:Using multidetector thin collimation helical acquisition technique, axial, coronal and sagittal CT images from the skull base to the vertex were obtained without intravenous contrast. Silo Painter (topogram) image(s) also obtained and reviewed. HEAD and NECK CTA: During rapid bolus intravenous injection of nonionic contrast material, axial images were obtained using thin collimation multidetector helical technique from the base of the upper aortic arch through the [place]. This CT angiogram data was reconstructed at thin intervals with mild overlap. Images were sent to the 3D workstation, and 3D reconstructions were obtained. The axial source images, multiplanar reformations, 3D reconstructions in both maximum intensity projection display and volume rendered models were reviewed, with reconstructions performed by the technologist and the radiologist. HEAD CT PERFUSION: Dynamic perfusion CT of the brain was performed at multiple levels; perfusion was measured and imaged during rapid bolus intravenous injection of nonionic iodinated contrast medium. Images were post-processed, reconstructed, and reviewed. CONTRAST: 67mL Isovue-370 (accession [id number]), [id number] (accession [id number]) FINDINGS: Head CT demonstrates no intracranial hemorrhage, mass effect, or midline shift. Solorzano/white matter differentiation in both cerebral hemispheres is preserved. Ventricles are proportionate to the cerebral sulci. The basal cisterns are clear. The bony calvaria and the bones of the skull base are normal. Mild scattered paranasal sinus because of thickening. Mastoid air cells are clear Head CTA demonstrates patent major intracranial arteries. Mild to moderate focal stenosis in the V4 segment of the right vertebral artery. Neck CTA demonstrates patent major cervical arteries. No high-grade stenosis or dissection. Hypoplastic left vertebral artery terminates as PICA. No acute finding in the visualized neck soft tissues, or in the superior mediastinum/thorax. CT perfusion demonstrates no evidence of ischemia or acute infarction. There is normal perfusion of the brain at the visualized levels. IMPRESSION: 1. Head CT demonstrates no acute intracranial pathology. 2. Head CTA demonstrates patent major intracranial arteries without large vessel occlusion, high-grade stenosis or aneurysm. Mild to moderate focal stenosis in the V4 segment of the right vertebral artery. 3. Neck CTA demonstrates no stenosis of the major cervical arteries. 4. CT perfusion demonstrates no evidence of ischemia or infarct. ANASTACIO BRODERICK MD SYSTEM ID: [id number] Dalia Alexander MD IMG CT ORDERABLES Final Result * CT Head w/o Contrast (01/22/2024 1:02 PM CDT) Anatomical Region Laterality Modality Head, SUBRAD CT NEURO, SUBRA D CT NEURO, UMP CT NEURO, RAD CT Computed Tomography Impressions 01/22/2024 1:57 PM CDT IMPRESSION: 1. Head CT demonstrates no acute intracranial pathology. 2. Head CTA demonstrates patent major intracranial arteries without large vessel occlusion, high-grade stenosis or aneurysm. Mild to moderate focal stenosis in the V4 segment of the right vertebral artery. 3. Neck CTA demonstrates no stenosis of the major cervical arteries. 4. CT perfusion demonstrates no evidence of ischemia or infarct. ANASTACIO BRODERICK MD SYSTEM ID: [id number] Narrative 01/22/2024 1:57 PM CDT EXAM: CTA HEAD NECK W CONTRAST, CT HEAD PERFUSION W CONTRAST, CT HEAD W/O CONTRAST 01/22/2024 1:04 PM HISTORY: Code Stroke to evaluate for potential thrombolysis and thrombectomy. PLEASE READ IMMEDIATELY. COMPARISON: No prior similar studies TECHNIQUE: HEAD CT:Using multidetector thin collimation helical acquisition technique, axial, coronal and sagittal CT images from the skull base to the vertex were obtained without intravenous contrast. Silo Painter (topogram) image(s) also obtained and reviewed. HEAD and NECK CTA: During rapid bolus intravenous injection of nonionic contrast material, axial images were obtained using thin collimation multidetector helical technique from the base of the upper aortic arch through the [place]. This CT angiogram data was reconstructed at thin intervals with mild overlap. Images were sent to the 3D workstation, and 3D reconstructions were obtained. The axial source images, multiplanar reformations, 3D reconstructions in both maximum intensity projection display and volume rendered models were reviewed, with reconstructions performed by the technologist and the radiologist. HEAD CT PERFUSION: Dynamic perfusion CT of the brain was performed at multiple levels; perfusion was measured and imaged during rapid bolus intravenous injection of nonionic iodinated contrast medium. Images were post-processed, reconstructed, and reviewed. CONTRAST: 67mL Isovue-370 (accession [id number]), 117Isovue-370 (accession [id number]) FINDINGS: Head CT demonstrates no intracranial hemorrhage, mass effect, or midline shift. Solorzano/white matter differentiation in both cerebral hemispheres is preserved. Ventricles are proportionate to the cerebral sulci. The basal cisterns are clear. The bony calvaria and the bones of the skull base are normal. Mild scattered paranasal sinus because of thickening. Mastoid air cells are clear Head CTA demonstrates patent major intracranial arteries. Mild to moderate focal stenosis in the V4 segment of the right vertebral artery. Neck CTA demonstrates patent major cervical arteries. No high-grade stenosis or dissection. Hypoplastic left vertebral artery terminates as PICA. No acute finding in the visualized neck soft tissues, or in the superior mediastinum/thorax. CT perfusion demonstrates no evidence of ischemia or acute infarction. There is normal perfusion of the brain at the visualized levels. Procedure Note Anastacio Broderick MD - 01/22/2024 EXAM: CTA HEAD NECK W CONTRAST, CT HEAD PERFUSION W CONTRAST, CT HEAD W/O CONTRAST 01/22/2024 1:04 PM HISTORY: Code Stroke to evaluate for potential thrombolysis and thrombectomy. PLEASE READ IMMEDIATELY. COMPARISON: No prior similar studies TECHNIQUE: HEAD CT:Using multidetector thin collimation helical acquisition technique, axial, coronal and sagittal CT images from the skull base to the vertex were obtained without intravenous contrast. Silo Painter (topogram) image(s) also obtained and reviewed. HEAD and NECK CTA: During rapid bolus intravenous injection of nonionic contrast material, axial images were obtained using thin collimation multidetector helical technique from the base of the upper aortic arch through the [place] of [place]. This CT angiogram data was reconstructed at thin intervals with mild overlap. Images were sent to the 3D workstation, and 3D reconstructions were obtained. The axial source images, multiplanar reformations, 3D reconstructions in both maximum intensity projection display and volume rendered models were reviewed, with reconstructions performed by the technologist and the radiologist. HEAD CT PERFUSION: Dynamic perfusion CT of the brain was performed at multiple levels; perfusion was measured and imaged during rapid bolus intravenous injection of nonionic iodinated contrast medium. Images were post-processed, reconstructed, and reviewed. CONTRAST: 67mL Isovue-370 (accession [id number]), 117Isovue-370 (accession [id number]) FINDINGS: Head CT demonstrates no intracranial hemorrhage, mass effect, or midline shift. Solorzano/white matter differentiation in both cerebral hemispheres is preserved. Ventricles are proportionate to the cerebral sulci. The basal cisterns are clear. The bony calvaria and the bones of the skull base are normal. Mild scattered paranasal sinus because of thickening. Mastoid air cells are clear Head CTA demonstrates patent major intracranial arteries. Mild to moderate focal stenosis in the V4 segment of the right vertebral artery. Neck CTA demonstrates patent major cervical arteries. No high-grade stenosis or dissection. Hypoplastic left vertebral artery terminates as PICA. No acute finding in the visualized neck soft tissues, or in the superior mediastinum/thorax. CT perfusion demonstrates no evidence of ischemia or acute infarction. There is normal perfusion of the brain at the visualized levels. IMPRESSION: 1. Head CT demonstrates no acute intracranial pathology. 2. Head CTA demonstrates patent major intracranial arteries without large vessel occlusion, high-grade stenosis or aneurysm. Mild to moderate focal stenosis in the V4 segment of the right vertebral artery. 3. Neck CTA demonstrates no stenosis of the major cervical arteries. 4. CT perfusion demonstrates no evidence of ischemia or infarct. ANASTACIO BRODERICK MD SYSTEM ID: [id number] Dalia Alexander MD [facility] [place] CT ORDERABLES Final Result * Troponin T, High Sensitivity (01/22/2024 12:51 PM CDT) Pathologist [facility] Troponin T, High Sensitivity <6 <=22 ng/L 01/22/2024 1:33 PM CDT LABORATORY Comment: Either a High Sensitivity Troponin T baseline (0 hours) value = 100 ng/L, or an increase in High Sensitivity Troponin T = 7 ng/L at 2 hours compared to 0 hours (2-0 hours), suggests myocardial injury, and urgent clinical attention is required. If the 2-0 hours increase is <7 ng/L, a High Sensitivity Troponin T result above gender-specific reference ranges warrants further evaluation. Recommendations for further evaluation include correlation with clinical decision-making tool (e.g., HEART), a 3rd High Sensitivity Troponin T test 2 hours after the 2nd (a 20% change from baseline would represent concern), admission for observation, close PCC/cardiology follow-up, or urgent outpatient provocative testing. Blood STRUCTURE OF RIGHT UPPER LIMB / Unknown Venipuncture / Unknown 01/22/2024 12:51 PM CDT 01/22/2024 12:54 PM CDT Dalia Alexander MD LAB - BLOOD ORDERABLES Final R esult Performing Organization Address City/[facility]/ZIP Co de Phone Number [facility] [email or web address] Lab (1st floor, no room number) [address] [place] [address] * (ABNORMAL) INR (01/22/2024 12:51 PM CDT) Pathologist [facility] INR 1.17(H) 0.85 - 1.15 01/22/2024 1:11 PM CDT LABORATORY Blood STRUCTURE OF RIGHT UPPER LIMB / Unknown Venipuncture / Unknown 01/22/2024 12:51 PM CDT 01/22/2024 12:54 PM CDT Dalia Alexander MD LAB - BLOOD ORDERABLES Final R esult [facility] [address] Lab (1st floor, no room number) [place] [phone], [facility] * Partial thromboplastin time (01/22/2024 12:51 PM CDT) aPTT 31 22 - 38 Seconds 01/22/2024 1:11 PM CDT [facility] LABORATORY Blood STRUCTURE OF RIGHT UPPER LIMB / Unknown Venipuncture / Unknown 01/22/2024 12:51 PM CDT 01/22/2024 12:54 PM CDT us Dalia Alexander MD LAB - BLOOD ORDERABLES Final R esult [facility] LABORATORY [facility] [address] Lab (1st floor, no room number) [place] [address] * (ABNORMAL) Comprehensive metabolic panel (01/22/2024 12:51 PM CDT) Sodium 136 135 - 145 mmol/L 01/22/2024 1:36 PM CDT [facility] LABORATORY Potassium 4.5 3.4 - 5.3 mmol/L 01/22/2024 1:36 PM CDT LABORATORY Carbon Dioxide (CO2) 21(L) 22 - 29 mmol/L 01/22/2024 1:36 PM CDT [facility] LABORATORY Anion Gap 13 7 - 15 mmol/L 01/22/2024 1:36 PM CDT [facility] LABORATORY Urea Nitrogen 15.7 8.0 - 23.0 mg/dL 01/22/2024 1:36 PM CDT [facility] LABORATORY Creatinine 0.84 0.67 - 1.17 mg/dL 01/22/2024 1:36 PM CDT [facility] LABORATORY GFR Estimate >90 >60 mL/min/1.7 3m2 01/22/2024 1:36 PM CDT [facility] LABORATORY Comment:eGFR calculated usin g 2020 CKD-EPI equation. Calcium 8.5(L) 8.8 - 10.4 mg/dL 01/22/2024 1:36 PM CDT [facility] LABORATORY Comment:Reference intervals for this test were updated on 10/24/2023 to reflect our healthy population more accurately. There may be differences in the flagging of prior results with similar values performed with this method. Those prior results can be interpreted in the context of the updated reference intervals. Chloride 102 98 - 107 mmol/L 01/22/2024 1:36 PM CDT LABORATORY Glucose 144(H) 70 - 99 mg/dL 01/22/2024 1:36 PM CDT [facility] LABORATORY Alkaline Phosphatase 82 40 - 150 U/L 01/22/2024 1:36 PM CDT [facility] LABORATORY AST 46(H) 0 - 45 U/L 01/22/2024 1:36 PM CDT [facility] LABORATORY ALT 35 0 - 70 U/L 01/22/2024 1:36 PM CDT [facility] LABORATORY Protein Total 6.7 6.4 - 8.3 g/dL 01/22/2024 1:36 PM CDT [facility] LABORATORY Albumin 3.8 3.5 - 5.2 g/dL 01/22/2024 1:36 PM CDT [facility] LABORATORY Bilirubin Total 0.3 <=1.2 mg/dL 01/22/2024 1:36 PM CDT [facility] LABORATORY Blood STRUCTURE OF RIGHT UPPER LIMB / Unknown Venipuncture / Unknown 01/22/2024 12:51 PM CDT 01/22/2024 12:54 PM CDT Farooq Liu MD LAB - BLOOD ORDERABLES Fi nal Result [facility] [email or web address] Lab (1st floor, no room number) [address] * Ammonia (01/22/2024 12:51 PM CDT) [facility] Ammonia 28 16 - 60 umol/L 01/22/2024 1:50 PM CDT [facility] LABORATORY Blood STRUCTURE OF RIGHT UPPER LIMB / Unknown Venipuncture / Unknown 01/22/2024 12:51 PM CDT 01/22/2024 12:54 PM CDT Farooq Liu MD LAB - BLOOD ORDERABLES Fi nal Result [facility] [address] Lab (1st floor, no room number) [address] * CBC with platelets (01/22/2024 12:51 PM CDT) Only the most recent of2 resultswithin the time period is included. WBC Count 7.6 4.0 - 11.0 10e3/uL 01/22/2024 12:57 PM CDT [facility] LABORATORY RBC Count 4.67 4.40 - 5.90 10e6/uL 01/22/2024 12:57 PM CDT [facility] LABORATORY Hemoglobin 13.3 13.3 - 17.7 g/dL 01/22/2024 12:57 PM CDT [facility] LABORATORY Hematocrit 40.5 40.0 - 53.0 % 01/22/2024 12:57 PM CDT [facility] LABORATORY MCV 87 78 - 100 fL 01/22/2024 12:57 PM CDT [facility] LABORATORY MCH 28.5 26.5 - 33.0 pg 01/22/2024 12:57 PM CDT [facility] LABORATORY MCHC 32.8 31.5 - 36.5 g/dL 01/22/2024 12:57 PM CDT [facility] LABORATORY RDW 13.1 10.0 - 15.0 % 01/22/2024 12:57 PM CDT [facility] LABORATORY Platelet Count 150 150 - 450 10e3/uL 01/22/2024 12:57 PM CDT [facility] LABORATORY Blood STRUCTURE OF RIGHT UPPER LIMB / Unknown Venipuncture / Unknown 01/22/2024 12:51 PM CDT 01/22/2024 12:54 PM CDT us Dalia Alexander MD LAB - BLOOD ORDERABLES Final R esult [facility] LABORATORY [facility] [address] Lab (1st floor, no room number) [place] [address] * XR Surgery ADELITA L/T 5 Min Fluoro w Stills (01/22/2024 11:20 AM CDT) Narrative [facility] - 01/22/2024 11:21 AM CDT This exam was marked as non-reportable because it will not be read by a radiologist or a [place] non-radiologist provider. us Guicho Tobin MD IMG DIAGNOSTIC IMAGI NG ORDERABLES Final Result [facility] * XR Surgery OARM (01/22/2024 9:28 AM CDT) Anatomical Region Laterality Modality Abdomen/Pelvis Radiographic Ciarra ging Narrative 01/24/2024 12:33 PM CDT INTRAOPERATIVE FLUOROSCOPY. 01/22/2024 Intraoperative fluoroscopy supplied to the surgeon during spinal intervention. No spot images obtained. CLAIRE ELKINS MD Procedure Note Claire Elkins MD - 01/24/2024 INTRAOPERATIVE FLUOROSCOPY. 01/22/2024 Intraoperative fluoroscopy supplied to the surgeon during spinal intervention. No spot images obtained. CLAIRE ELKINS MD Guicho Tobin MD IMG DIAGNOSTIC IMAGI NG ORDERABLES Final Result * ANE AIRWAY ETT PERFORMABLE (01/22/2024 8:02 AM CDT) Narrative Hawa Harris APRN CRNA - 01/22/2024 8:02 AM CDT Hawa Harris APRN GAS STATION CASHIER 01/22/2024 8:19 AM Airway Patient location during procedure: OR Procedure Start/Stop Times: 01/22/2024 8:02 AM Staff - GAS STATION CASHIER: Hawa Harris APRN CRNA Performed By: GAS STATION CASHIER Consent for Airway Urgency: elective Indications and Patient Condition Indications for airway management: jm-procedural Induction type:intravenous Mask difficulty assessment: 1 - vent by mask Final Airway Details Final airway type: endotracheal airway Successful airway: ETT - single Endotracheal Airway Details ETT size (mm): 8.0 Cuffed: yes Successful intubation technique: video laryngoscopy VL Blade Size: Glidescope 4 Grade View of Cords: 1 Adjucts: stylet Position: Center Bite block used: Soft Post intubation assessment Placement verified by: capnometry Number of attempts at approach: 1 Secured with: tape Ease of procedure: easy Dentition: Unchanged and Intact Medication(s) Administered Medication Administration Time: 01/22/2024 8:02 AM Dalia Alexander MD SD ANESTHESIA Final Result * Adult Type and Screen (01/22/2024 7:16 AM CDT) ABO/RH(D) O POS 01/22/2024 6:49 AM CDT RH BLOOD BANK Antibody Screen Negative Negative 01/22/2024 6:49 AM CDT RH BLOOD BANK SPECIMEN EXPIRATION DATE [id number] 01/22/2024 6:49 AM CDT RH BLOOD BANK Blood STRUCTURE OF RIGHT UPPER LIMB / Unknown Venipuncture / Unknown 01/22/2024 7:16 AM CDT 01/22/2024 7:22 AM CDT us Dalia Alexander MD LAB - BLOOD BANK TEST ORDER Fi nal Result BLOOD BANK [address] [place] [address], [facility] * (ABNORMAL) Basic metabolic panel (01/22/2024 7:16 AM CDT) Sodium 141 135 - 145 mmol/L 01/22/2024 7:44 AM CDT LABORATORY Potassium 4.2 3.4 - 5.3 mmol/L 01/22/2024 7:44 AM CDT LABORATORY Chloride 104 98 - 107 mmol/L 01/22/2024 7:44 AM CDT LABORATORY Carbon Dioxide (CO2) 24 22 - 29 mmol/L 01/22/2024 7:44 AM CDT LABORATORY Anion Gap 13 7 - 15 mmol/L 01/22/2024 7:44 AM CDT LABORATORY Urea Nitrogen 15.5 8.0 - 23.0 mg/dL 01/22/2024 7:44 AM CDT LABORATORY Creatinine 0.83 0.67 - 1.17 mg/dL 01/22/2024 7:44 AM CDT LABORATORY GFR Estimate >90 >60 mL/min/1.7 3m2 01/22/2024 7:44 AM CDT RH LABORATORY Comment:eGFR calculated usin g 2020 CKD-EPI equation. Calcium 9.2 8.8 - 10.4 mg/dL 01/22/2024 7:44 AM CDT RH LABORATORY Comment:Reference intervals for this test were updated on 10/24/2023 to reflect our healthy population more accurately. There may be differences in the flagging of prior results with similar values performed with this method. Those prior results can be interpreted in the context of the updated reference intervals. Glucose 115(H) 70 - 99 mg/dL 01/22/2024 7:44 AM CDT LABORATORY Blood STRUCTURE OF RIGHT UPPER LIMB / Unknown Venipuncture / Unknown 01/22/2024 7:16 AM CDT 01/22/2024 7:22 AM CDT us Dalia Alexander MD LAB - BLOOD ORDERABLES Final R esult LABORATORY [facility] [address] [facility] Lab (1st floor, no room number) [place] [address], [facility] from Last 3 Months Insurance [facility] DUAL [facility] DUAL Advance Directives For more information, please contact: [phone] * Full Code (Latest Code Status on File) Date Activated Date Inactivated Comments 01/22/2024 4:32 PM 01/25/2024 2:05 PM All basic and advanced life-sustaining interventions are performed as appropriate Question Answer Comments Code status determined by: Discussion with jay jaye nt/ legal decision maker Care Teams Parts Delivery Driver Relationship Specialty Start Date End Date [place] Iqbal PA-C [facility] [address] [id number] PCP - General Physician Glass Blowing Instructor 12/19/23
--- OUTSIDE RECORDS SUMMARY | 2024-03-06 10:34 | XMS_ITS | Clinical Summary ---
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 Name Role Phone Argentina Iqbal PA-C Primary Care Provider Allergies No known active allergies Medications rosuvastatin [...] Date Diagnosed Date S/P lumbar fusion 01/22/2024 Encounters Date Type Department Care Team Description 01/22/2024 7:50 AM CDT Anesthesia Event [facility] [address] [place] [id number] Dalia Alexander MD 01/22/2024 7:30 AM CDT - 01/22/2024 12:10 PM CDT Surgery [facility] [address] [place] [id number] Guicho Tobin MD L4-5 bilateral decompressive laminectomies with medial facetectomies with decompression and exposure of the L4 and L5 nerve roots bilaterally L5-S1 bilateral decompressive laminectomies with medial facetectomies and decompression and exposure of the L5 and S1 nerve roots Placement of [facility] Spine Invictus pedicle screws bilaterally from L4-S1 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 DuraGen, fat graft, DuraSeal and VistaSeal L4-S1 posterior lateral fusion 01/22/2024 6:00 AM CDT Office Visit [facility] [address] [place] [phone] Harriet Oroczo 01/22/2024 5:44 AM CDT - 01/25/2024 12:00 PM CDT Hospital Encounter [facility] [address] [place] [address] Guicho Tobin MD S/P lumbar fusion (Primary Dx) Discharge Disposition: Home or Self Care 01/22/2024 Travel from Last 3 Months Social History Tobacco [...] in an abandoned building, in an overnight senior living, or couch-surfing.) Yes 01/23/2024 Are you worried [...] 01/22/2024 5:51 AM CDT Plan of Treatment Health Maintenance Due Date Last Done Comments ADVANCE CARE PLANNING 1955 ANNUAL REVIEW OF HM ORDERS 1957 CT COLONOGRAPHY 1957 FIT 1957 FLEX SIG 1957 LIPID 1957 sDNA (Cologuard) 1957 COVID-19 Vaccine (#1) 1962 COLONOSCOPY 08/30/1967 COLORECTAL CANCER SCREENING 08/30/1967 HEPATITIS C SCREENING 08/30/1975 RSV VACCINE (1 - Risk 60-74 years 1-dose series) 2017 FALL RISK ASSESSMENT 2022 MEDICARE ANNUAL WELLNESS VISIT 2022 PHQ-2 (once per calendar year) 2023 GLUCOSE 01/23/2027 01/24/2024, 01/08, 01/22/2024, Additional history exists DTAP/TDAP/TD IMMUNIZATION (2 - Td or Tdap) 01/02/2033 01/02/2023 Pneumococcal Vaccine: 65+ Years Completed 10/03/2022 ZOSTER IMMUNIZATION Completed 03/06/2023, INFLUENZA VACCINE Completed 01/10/2024, , 01/07/2022 HPV IMMUNIZATION Aged Out No longer e ligible based on patient's age to complete this topic MENINGITIS IMMUNIZATION Aged Out No l onger eligible based on patient's age to complete this topic RSV MONOCLONAL ANTIBODY Aged Out No l onger eligible based on patient's age to complete this topic Medical Devices Implanted Type Area Product Finisher Device Identifier Shelf Expiration Date Model / Serial / Lot Set Screw Implanted:Qt y: 6 on 01/22/2024 by Guicho Tobin MD at [facility] Metallic Hardware/An chor N/A: Spine Lumbar [employer] [id number] / / [id number] 2023 7.5 X 50 Screw Implanted:Qt y: 4 on 01/22/2024 by Guicho Tobin MD at [facility] Metallic Hardware/An chor N/A: Spine Lumbar [employer] [id number] 5-050 / / [id number] 2023 7.5 X 45 Screw Implanted:Qt y: 2 on 01/22/2024 by Guicho Tobin MD at [facility] Metallic Hardware/An chor N/A: Spine Lumbar [employer] [id number] 5-045 / / [id number] 2023 5.5 X 70mm Cocr Robert Implanted:Qt y: 2 on 01/22/2024 by Guicho Tobin MD at [facility] Metallic Hardware/An chor N/A: Spine Lumbar [employer] 14723-40 -070 / / [id number] 2023 Graft Duragen Matrix 1X1 - [id number] Implanted:Qt y: 1 on 01/22/2024 by Guicho Tobin MD at [facility] Other N/A: Spine Lumbar [employer] [id number] 06/07/2026 [id number] / / [id number] Procedures Procedure Name Priority Date/Time Associated Diagnosis [...] of4 resultswithin the time period is included. GLUCOSE BY METER POCT 126(H) 70 - 99 mg/dL 01/24/2024 6:52 AM CDT [facility] POC Blood, Capillary BLOOD SPECIMEN / Unknown 01/24/2024 6:45 AM CDT 01/24/2024 6:52 AM CDT us Guicho Tobin MD LAB - BEAKER POCT Fi nal Result [facility] [address] [facility] Lab (1st floor, no room number) [place] [address], [facility] * MR Brain w/o & w Contrast [...] MR BRAIN W/O and W CONTRAST LOCATION: [facility] DATE: 01/24/2024 INDICATION: slurred speech after surgery; [...] MR BRAIN W/O and W CONTRAST LOCATION: [facility] DATE: 01/24/2024 INDICATION: slurred speech after surgery; [...] changesas detailed above. us Chilo Garcia MD IM MRI ORDERABLES Final Res ult * CT [...] or infarct. ANASTACIO BRODERICK MD SYSTEM ID: [id number] Narrative 01/22/2024 1:57 PM CDT EXAM: CTA [...] the vertex were obtained without intravenous contrast. Product Development Assistant (topogram) image(s) also obtained and reviewed. HEAD and NECK CTA: During rapid bolus intravenous injection of nonionic contrast material, axial images were obtained using thin collimation multidetector helical technique from the base of the upper aortic arch through the gambell of [place]cho[place]. This CT angiogram data was [...] reconstructed, and reviewed. CONTRAST: 67mL Isovue-370 (accession [id number]), 117Isovue-370 (accession [id number]) FINDINGS: Head CT demonstrates no intracranial hemorrhage, mass effect, or midline shift. [place]/white matter differentiation in both cerebral hemispheres is [...] the vertex were obtained without intravenous contrast. Product Development Assistant (topogram) image(s) also obtained and reviewed. HEAD and NECK CTA: During rapid bolus intravenous injection of nonionic contrast material, axial images were obtained using thin collimation multidetector helical technique from the base of the upper aortic arch through the gambell of [place]cho[place]. This CT angiogram data was [...] reconstructed, and reviewed. CONTRAST: 67mL Isovue-370 (accession [id number]), 117Isovue-370 (accession [id number]) FINDINGS: Head CT demonstrates no intracranial hemorrhage, [...] or infarct. ANASTACIO BRODERICK MD SYSTEM ID: [id number] Dalia Alexander MD [facility] [place] ORDERABLES Final Result * CTA Head [...] or infarct. ANASTACIO BRODERICK MD SYSTEM ID: [id number] Narrative 01/22/2024 1:57 PM CDT EXAM: CTA [...] the vertex were obtained without intravenous contrast. Product Development Assistant (topogram) image(s) also obtained and reviewed. HEAD and NECK CTA: During rapid bolus intravenous injection of nonionic contrast material, axial images were obtained using thin collimation multidetector helical technique from the base of the upper aortic arch through the gambell of [place]cho[place]. This CT angiogram data was [...] reconstructed, and reviewed. CONTRAST: 67mL Isovue-370 (accession [id number]), 117Isovue-370 (accession [id number]) FINDINGS: Head CT demonstrates no intracranial hemorrhage, [...] the vertex were obtained without intravenous contrast. Product Development Assistant (topogram) image(s) also obtained and reviewed. HEAD and NECK CTA: During rapid bolus intravenous injection of nonionic contrast material, axial images were obtained using thin collimation multidetector helical technique from the base of the upper aortic arch through the gambell of [place]cho[place]. This CT angiogram data was [...] reconstructed, and reviewed. CONTRAST: 67mL Isovue-370 (accession [id number]), 117Isovue-370 (accession [id number]) FINDINGS: Head CT demonstrates no intracranial hemorrhage, [...] or infarct. ANASTACIO BRODERICK MD SYSTEM ID: [id number] Dalia Alexander MD IMG CT ORDERABLES Final [...] or infarct. ANASTACIO BRODERICK MD SYSTEM ID: [id number] Narrative 01/22/2024 1:57 PM CDT EXAM: CTA [...] the vertex were obtained without intravenous contrast. Product Development Assistant (topogram) image(s) also obtained and reviewed. HEAD and NECK CTA: During rapid bolus intravenous injection of nonionic contrast material, axial images were obtained using thin collimation multidetector helical technique from the base of the upper aortic arch through the gambell of [place]cho[place]. This CT angiogram data was [...] reconstructed, and reviewed. CONTRAST: 67mL Isovue-370 (accession [id number]), 117Isovue-370 (accession [id number]) FINDINGS: Head CT demonstrates no intracranial hemorrhage, [...] the vertex were obtained without intravenous contrast. Product Development Assistant (topogram) image(s) also obtained and reviewed. HEAD and NECK CTA: During rapid bolus intravenous injection of nonionic contrast material, axial images were obtained using thin collimation multidetector helical technique from the base of the upper aortic arch through the gambell of [place]cho[place]. This CT angiogram data was [...] reconstructed, and reviewed. CONTRAST: 67mL Isovue-370 (accession [id number]), 117Isovue-370 (accession [id number]) FINDINGS: Head CT demonstrates no intracranial hemorrhage, [...] or infarct. ANASTACIO BRODERICK MD SYSTEM ID: [id number] Dalia Alexander MD IMG CT ORDERABLES Final Result * Troponin T, High Sensitivity (01/22/2024 12:51 PM CDT) [facility] Troponin T, High Sensitivity <6 [...] ORDERABLES Final R esult Performing Organization Address City/[facility]/ZIP Co de Phone Number [facility] [address] Lab (1st floor, no room number) [place] [address] * (ABNORMAL) INR (01/22/2024 12:51 PM CDT) INR 1.17(H) 0.85 - 1.15 01/22/2024 1:11 PM CDT [facility] Blood STRUCTURE OF RIGHT UPPER LIMB / Unknown Venipuncture / Unknown 01/22/2024 12:51 PM CDT 01/22/2024 12:54 PM CDT us Dalia Alexander MD LAB - BLOOD ORDERABLES Final R esult Performing Organization Address [facility]/ZIP Co de Phone Number [facility] Lab [address] Lab (1st floor, no room number) [place] [address], [facility] * Partial thromboplastin time (01/22/2024 12:51 PM CDT) aPTT 31 22 - 38 Seconds 01/22/2024 1:11 PM CDT [facility] Blood STRUCTURE OF RIGHT UPPER LIMB / Unknown Venipuncture / Unknown 01/22/2024 12:51 PM CDT 01/22/2024 12:54 PM CDT us Dalia Alexander MD LAB - BLOOD ORDERABLES Final R esult [facility] [address] Lab (1st floor, no room number) [place] [address], [facility] * (ABNORMAL) Comprehensive metabolic panel (01/22/2024 12:51 PM CDT) Sodium 136 135 - 145 mmol/L 01/22/2024 1:36 PM CDT [facility] Potassium 4.5 3.4 - 5.3 mmol/L 01/22/2024 1:36 PM CDT [facility] Carbon Dioxide (CO2) 21(L) 22 - [...] PM CDT [facility] Comment:eGFR calculated usin 2020 CKD-EPI equation. Calcium 8.5(L) 8.8 - [...] - 107 mmol/L 01/22/2024 1:36 PM CDT [facility] Glucose 144(H) 70 - 99 mg/dL [...] LAB - BLOOD ORDERABLES Fi nal Result LABORATORY [facility] [address] Lab (1st floor, no room number) [place] [id number] [place] [address] * Ammonia (01/22/2024 12:51 PM CDT) Ammonia 28 16 - 60 umol/L 01/22/2024 1:50 PM CDT [facility] Blood STRUCTURE OF RIGHT UPPER LIMB / Unknown Venipuncture / Unknown 01/22/2024 12:51 PM CDT 01/22/2024 12:54 PM CDT Farooq Liu MD LAB - BLOOD ORDERABLES Fi nal Result Performing Organization Address [facility] Co de Phone Number [facility] [address] Lab (1st floor, no room number) [address] * CBC with platelets (01/22/2024 12:51 [...] BLOOD ORDERABLES Final R esult [facility] LABORATORY [facility] [address], no room number) [place] [address] * XR Surgery ADELITA L/T 5 Min Fluoro w Stills (01/22/2024 11:20 AM CDT) Narrative [facility] - 01/22/2024 11:21 AM CDT This exam was marked as non-reportable because it will not be read by a radiologist or a [facility] non-radiologist provider. Guicho Tobin MD IMG DIAGNOSTIC IMAGI NG ORDERABLES Final Result Performing Organization Address City/[facility]/ZIP Co de Phone Number [facility] * XR Surgery OARM (01/22/2024 9:28 [...] 01/22/2024 8:02 AM CDT Hawa Harris APRN CRNA 01/22/2024 8:19 AM Airway Patient location during procedure: OR Procedure Start/Stop Times: 01/22/2024 8:02 AM Staff - GRINDER OPERATOR: Hawa Harris APRN CRNA Performed By: GRINDER OPERATOR Consent for Airway Urgency: elective Indications and [...] Time: 01/22/2024 8:02 AM Dalia Alexander MD [place] ANESTHESIA Final Result * Adult Type and Screen (01/22/2024 7:16 AM CDT) ABO/RH(D) O POS 01/22/2024 6:49 AM CDT [facility] BLOOD BANK Antibody Screen Negative Negative 01/22/2024 6:49 AM CDT RH BLOOD BANK SPECIMEN EXPIRATION DATE [id number] 01/22/2024 6:49 AM CDT RH BLOOD BANK Blood STRUCTURE OF RIGHT UPPER LIMB / Unknown Venipuncture / Unknown 01/22/2024 7:16 AM CDT 01/22/2024 7:22 AM CDT Dalia Alexander MD LAB - BLOOD BANK TEST ORDER Fi nal Result [facility] BLOOD BANK [address] [place] [address], [facility] * (ABNORMAL) Basic metabolic panel (01/22/2024 7:16 AM CDT) Sodium 141 135 - 145 mmol/L 01/22/2024 7:44 AM CDT LABORATORY Potassium 4.2 3.4 - 5.3 mmol/L 01/22/2024 7:44 AM CDT LABORATORY Chloride 104 98 - 107 mmol/L 01/22/2024 7:44 AM CDT LABORATORY Carbon Dioxide (CO2) 24 22 - 29 mmol/L 01/22/2024 7:44 AM CDT [facility] Anion Gap 13 7 - 15 mmol/L 01/22/2024 7:44 AM CDT [facility] Urea Nitrogen 15.5 8.0 - 23.0 mg/dL 01/22/2024 7:44 AM CDT [facility] Creatinine 0.83 0.67 - 1.17 mg/dL [...] BLOOD ORDERABLES Final R esult [facility] LABORATORY [facility] [address] [facility] Lab (1st floor, no room number) [place] [address], [facility] from Last 3 Months Insurance [facility] [place] [address] DUAL Advance Directives For more information, please contact: [phone] * Full Code (Latest Code Status on File) Date Activated Date Inactivated Comments 01/22/2024 4:32 PM 01/25/2024 2:05 PM All basic and advanced life-sustaining interventions are performed as appropriate Question Answer Comments Code status determined by: Discussion with patie nt/ legal decision maker Care Teams 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
--- OUTSIDE RECORDS SUMMARY | 2024-03-06 10:34 | XMS_ITS | Encounter Summary ---
Author Organization [facility] Address [address] [place] [id number] Care Team Providers Care Accounting Advisory Services Manager Name Role Phone Argentina Iqbal PA-C Primary Care Provider Reason for Visit * Auth/Cert (Routine) Specialty Diagnoses / Procedures Referred By Contac t Referred To Contact Surgery Diagnoses Radiculopathy, lumbosacral region Spinal stenosis, lumbar region with neurogenic claudication Herniation of lumbar intervertebral disc with radiculopathy Radiculopathy, lumbosacral region [M54.17] Spinal stenosis, lumbar region with neurogenic claudication [M48.062] Herniation of lumbar intervertebral disc with radiculopathy [M51.16] Procedures HI ALLOGRAFT FOR SPINE SURGERY ONLY MORSELIZED HI ALLOGRAFT FOR SPINE SURGERY ONLY STRUCTURAL HI AUTOGRAFT SPINE SURGERY LOCAL FROM SAME INCISION HI AUTOGRAFT SPINE SURGERY MORSELIZED SEP INCISION HI AUTOGRAFT SPINE SURGERY BICORT/TRICORT SEP INCISION HI LUMBAR SPINE FUSN,POST TECH HI SPINE FUSN,POST TECH,EA ADDNL SGMT HI LUMBAR SPINE FUSN,POST INTERBODY HI LUMB SP FUSN,POST INTERBDY,EA ADDL HI ARTHRODESIS POST/POSTEROLATRL/POSTINTERBODY LUMBAR HI ARTHRODESIS POST/POSTERLATRL/POSTINTRBDYADL SPC/SEG HI STEREOTACTIC COMP ASSIST PROC,SPINAL Bilateral Lumbar 4 to Sacral 1 Transforaminal Lumbar Interbody Fusion with Navigation [facility] [address] [place] [address] Phone: tel: fax: Referral ID Status Reason Start Date Expiration Date Visits Re quested Visits Authorized [id number] 1 1 Encounter Details Date Type Department Care Team (Late st Contact Info) Description 01/22/2024 5:44 AM CDT - 01/25/2024 12:00 PM CDT Hospital Encounter [facility] [address] [place] [id number] Guicho Tobin MD [facility] [address] [place] [address] S/P lumbar fusion (Primary Dx) Discharge Disposition: Home or Self Care Social History Tobacco Use Types Packs/Day Years [...] in an abandoned building, in an overnight nursing home, or couch-surfing.) Yes 01/23/2024 Are you worried [...] on file Sexual Orientation Not on file documented as of this encounter Last Filed Vital Signs Vital Sign Reading [...] Mass Index 31.78 01/22/2024 5:51 AM CDT documented in this encounter Discharge Summaries * Guicho Tobin MD - 01/25/2024 5:19 AM CDT [facility] Discharge Summary Domingo Willoughby Age: [age] year old Date of : 1955 Date of Admission: 01/22/2024 Date of Discharge:: 01/25/2024 Admitting Physician: Guicho Tobin MD Discharge Physician: Guicho Tobin MD Home clinic: [facility] Admission Diagnoses: Radiculopathy, lumbosacral region [M54.17] Spinal stenosis, lumbar region with neurogenic claudication [M48.062] Herniation of lumbar intervertebral disc with radiculopathy [M51.16] Discharge Diagnosis: Patient Active Problem List Diagnosis S/P lumbar fusion Procedures: Procedure(s): L4-5 bilateral decompressive laminectomies with medial facetectomies with decompression and exposure of the L4 and L5 nerve roots bilaterally L5-S1 bilateral decompressive laminectomies with medial facetectomies and decompression and exposure of the L5 and S1 nerve roots Placement of ATEC Spine Invictus pedicle screws bilaterally from L4-S1 Repair of complicated dural defect on the right at L5-S1with DuraGen, fat graft, DuraSeal and VistaSeal L4- S1 posterior lateral fusion Medications Prior to Admission: Medications Prior to Admission Medication Sig Dispense Refill Last Dose losartan (COZAAR) 25 MG tablet Take 25 mg by mouth daily. 01/21/2024 rosuvastatin (CRESTOR) 40 MG tablet Take 40 mg by mouth daily. 01/20/2024 Discharge Medications: Current Discharge Medication List START taking these medications Details methocarbamol (ROBAXIN) 750 MG tablet Take 1 tablet (750 mg) by mouth every 6 hours as needed for muscle spasms. Qty: 60 tablet, Refills: 1 Associated Diagnoses: S/P lumbar fusion oxyCODONE (ROXICODONE) 5 MG tablet Take 1-2 tablets (5-10 mg) by mouth every 3 hours as needed for moderate pain. Qty: 32 tablet, Refills: 0 Associated Diagnoses: S/P lumbar fusion CONTINUE these medications which have NOT CHANGED Details losartan (COZAAR) 25 MG tablet Take 25 mg by mouth daily. rosuvastatin (CRESTOR) 40 MG tablet Take 40 mg by mouth daily. Consultations: PT OT Hospitalist Brief History of Illness: Domingo Willoughby is a 68 year old male that is 3 Days Post-Op s/p Procedure(s): L4-5 bilateral decompressive laminectomies with medial facetectomies with decompression and exposure of the L4 and L5 nerve roots bilaterally L5-S1 bilateral decompressive laminectomies with medial facetectomies and decompression and exposure of the L5 and S1 nerve roots Placement of ATEC Spine Invictus pedicle screws bilaterally from L4-S1 Repair of complicated dural defect on the right at L5-S1with DuraGen, fat graft, DuraSeal and VistaSeal L4- S1 posterior lateral fusion. Hospital Course: The patient did well post op and was able to work with PT and OT. The patient's pain was controlledand ambulation was stable. He had a code stroke called in PACU and underwent a CT and subsequently a MRI brain which were both negative. It was determined that he did not have a stroke. He was stablefor discharge home. Discharge Instructions and Follow-Up: Discharge diet: Regular normal diet Discharge activity: Lifting restricted to 10 pounds until follow up No lifting or strenuous exercise for 6 week(s) No heavy lifting, pushing, pulling for 6 week(s) Do not submerge your incision underwater as in hot tub, pool or abrams water for 6 weeks. Ok to take showers and bathe in water below your incision. Discharge follow-up: Schedule Neurosurgery follow up appointment with either Hawa Ochoa CNP and Dr. Guicho Tobin at [facility] by calling the Spine Line at [phone] or [phone] for [facility] general number in 4-6 weeks. If sutures or debbie were placed, please schedule an appointment for wound check and staple/sutureremoval in 10-14 days by calling the Spine Line at [phone] or by calling the general [facility] line at [phone]. Discharge Disposition: Discharged to home Attestation: I have reviewed today's vital signs, notes, medications, labs and imaging. Amount of time performed on this discharge summary: 10 minutes. Guicho Tobin MD documented in this encounter Medications at Time of Discharge losartan (COZAAR) 25 MG tablet Take 25 mg by mouth daily. methocarbamol (ROBAXIN) 750 MG tabletIndications :S/P lumbar fusion Take 1 tablet (750 mg) by mouth every 6 hours as needed for muscle spasms. 60 tablet 1 01/23/2024 oxyCODONE (ROXICODONE) 5 MG tabletIndications :S/P lumbar fusion Take 1-2 tablets (5-10 mg) by mouth every 3 hours as needed for moderate pain. 32 tablet 01/23/2024 rosuvastatin (CRESTOR) 40 MG tablet Take 40 mg by mouth daily. documented as of this encounter Progress Notes * Guicho Tobin MD - 01/25/2024 10:41 AM CDT POD 3 Doing well MRI brain normal Ambulatory Discharge JENNY drains Discharge IV Home today Discharge instructions: No lifting of more than 10 pounds until follow up visit in 4-6 weeks Remove dressing on post op day 2 ( may redress if needed) Ok to shower post op day 1, but, do not scrub or submerge incision under water for 6 weeks Ok to walk as much as tolerated No contact sports until follow up visit No high impact activities such as; running/jogging, snowmobile or 4 tabares riding or any other recreational vehicles Call my office at [facility] [phone] or [phone] for increasing redness, swelling or pus draining from the incision, increased pain or any other questions and concerns. Discharge follow up: Schedule Neurosurgery follow up appointment with either Allison Roach CNP and Dr. Guicho Tobin at [facility] by calling The Spine Line at in 4-6 weeks. Please schedule an appointment for wound check and staple/suture removal in 10- 14 days by calling [phone] for the [facility] Spine Line. * Henry Michael OT - 01/25/2024 8:56 AM CDT Occupational Therapy Discharge Summary Reason for therapy discharge: All goals and outcomes met, no further needs identified. Progress towards therapy goal(s). See goals on Care Plan in [facility] electronic health record for goal details. Goals met Therapy recommendation(s): No further therapy is recommended. * Chilo Garcia MD - 01/24/2024 1:00 PM CDT [facility] Progress Note - Hospitalist Service Date of Admission: 01/22/2024 Assessment & Plan Patient is a 68-year-old male with history of right hemifacial spasm, hypertension, hyperlipidemia,and NICA, who presented on 01/22/24 for elective spine surgery. He was in the PACU recovering and was noted to have speech slurring which was not present prior to surgery. Code stroke was called. Sympt oms improved. CT of head was obtained and showed no bleed. Stroke neurology recommended non-urgent MRI to ensure no stroke but stroke was not suspected. MRI was unremarkable. Problem list: Status post lumbar spine surgery -Postoperative course including pain management DVT prophylaxis per spine surgeon Postoperative dysarthria -Suspect was due to anesthesia and analagesia -No symptoms now -MRI was unremarkable. -No further evaluation planned. History of chronic right facial spasm -He has had previous outpatient neurology evaluation -He has declined Botox Hypertension history -Continue VISUAL DEVELOPER losartan Hyperlipidemia -Continue VISUAL DEVELOPER Crestor Diet: Advance Diet as Tolerated: Regular Diet Adult DVT Prophylaxis: Pneumatic Compression Devices Boudreaux Catheter: Not present Lines: None Cardiac Monitoring: None Code Status: Full Code Clinically Significant Risk Factors # Coagulation Defect: INR = 1.17 (Ref range: 0.85 - 1.15) and/or PTT = 31 Seconds (Ref range: 22 - 38 Seconds), will monitor for bleeding # Obesity: Estimated body mass index is 31.78 kg/m?? as calculated from the following: Height as of this encounter: 1.727 m (5' 8). Weight as of this encounter: 94.8 kg (208 lb 15.9 oz)., PRESENT ON ADMISSION Disposition Plan Medically Ready for Discharge: Anticipated Tomorrow Chilo Garcia MD Hospitalist Service [facility] Securely message with [employer] (more info) Text page via [facility] Paging/Directory Interval History No new problems. Feeling fine now. He had some lightheaded when getting up earlier but that is better now. Physical Exam Vital Signs: Temp: 97.7 ??F (36.5 ??C) Temp src: Temporal BP: (!) 149/90 Pulse: 89 Resp: 18 SpO2: 98 % O2 Device: None (Room air) Weight: 208 lbs 15.94 oz GENERAL: Comfortable. Cooperative. PSYCH: pleasant, oriented, No acute distress. EYES: PERRLA, Normal conjunctiva. HEART: Regular rate and rhythm. No JVD. Pulses normal. No edema. LUNGS: Clear to auscultation, normal Respiratory effort. ABDOMEN: Soft, no hepatosplenomegaly, normal bowel sounds. EXTREMETIES: No clubbing, cyanosis or ischemia SKIN: Dry to touch, No rash. Medical Decision Making 30 MINUTES SPENT BY ME on the date of service doing chart review, history, exam, documentation & further activities per the note. Data Imaging results reviewed over the past 24 hrs: Recent Results (from the past 24 hour(s)) MR Brain w/o & w Contrast Narrative EXAM: MR BRAIN W/O and W CONTRAST LOCATION: [facility] DATE: 01/24/2024 INDICATION: slurred speech after surgery; resolved. Eval for stroke. COMPARISON: 01/22/2024 CONTRAST: 9.5 mL Gadavist TECHNIQUE: Routine multiplanar multisequence head MRI without and with intravenous contrast. FINDINGS: INTRACRANIAL CONTENTS: No acute or subacute infarct. No mass, acute hemorrhage, or extra-axial fluid collections. Scattered nonspecific T2/FLAIR hyperintensities within the cerebral white matter mostconsistent with mild chronic microvascular ischemic change. Mild generalized cerebral atrophy. No hydrocephalus. Normal position of the cerebellar tonsils. No pathologic contrast enhancement. SELLA: No abnormality accounting for technique. OSSEOUS STRUCTURES/SOFT TISSUES: Normal marrow signal. The major intracranial vascular flow voids are maintained. ORBITS: No abnormality accounting for technique. SINUSES/MASTOIDS: Mucosal thickening primarily involving the ethmoid air cells. No middle ear or mastoid effusion. Impression IMPRESSION: 1. No acute intracranial process. 2. Generalized brain atrophy and presumed microvascular ischemic changes as detailed above. Recent Labs Lab 01/24/24 0645 01/23/24 0600 01/22/24 1251 01/22/24 1245 01/22/24 0716 WBC -- -- 7.6 -- 6.6 HGB -- -- 13.3 -- 14.0 MCV -- -- 87 -- 86 PLT -- -- 150 -- 148* INR -- -- 1.17* -- -- NA -- -- 136 -- 141 POTASSIUM -- -- 4.5 -- 4.2 CHLORIDE -- -- 102 -- 104 CO2 -- -- 21* -- 24 BUN -- -- 15.7 -- 15.5 CR -- -- 0.84 -- 0.83 ANIONGAP -- -- 13 -- 13 MUNA -- -- 8.5* -- 9.2 GLC 126* 114* 144* < > 115* ALBUMIN -- -- 3.8 -- -- PROTTOTAL -- -- 6.7 -- -- BILITOTAL -- -- 0.3 -- -- ALKPHOS -- -- 82 -- -- ALT -- -- 35 -- -- AST -- -- 46* -- -- < > = values in this interval not displayed. * Leonora Connolly, OT - 01/24/2024 10:58 AM CDT 01/24/24 1021 Appointment Info Signing Clinician's Name / Credentials (OT) Leonora Connolly OTR/Emely Talkback Host Talkback Host Present yes Language Russian Living Environment Living Environment Comments Pt reports living in home with spouse, son, DIL. ~12 stairs to manage with unilateral railing. Ind with mobility at baseline, limited distances. Walk in shower, shower chiar and grab bars. SHT Self-Care Usual Activity Tolerance good Current Activity Tolerance moderate Equipment Currently Used at Home none Fall history within last six months yes Number of times patient has fallen within last six months 1 General Information Onset of Illness/Injury or Date of Surgery 01/22/24 Referring Physician Guicho Tobin MD Patient/Family Therapy Goal Statement (OT) to return home at in Additional Occupational Profile Info/Pertinent History of Current Problem Per H&P, pt is a 68-year-old male with a history of right hemifacial spasm, hypertension, hyperlipidemia, NICA, who is POD1 s/p L4-S1 fusion. Existing Precautions/Restrictions spinal;brace worn when out of bed General Observations and Info patient was o Cognitive Status Examination Orientation Status orientation to person, place and time Visual Perception Visual Impairment/Limitations WNL Sensory Sensory Quick Adds sensation intact Pain Assessment Patient Currently in Pain Yes, see Vital Sign flowsheet (rating pain 1/10) Range of Motion Comprehensive General Range of Motion bilateral upper extremity ROM WNL Strength Comprehensive (MMT) General Manual Muscle Testing (MMT) Assessment no strength deficits identified Comment, General Manual Muscle Testing (MMT) Assessment decreased activity tolerance Muscle Tone Assessment Muscle Tone Quick Adds No deficits were identified Coordination Upper Extremity Coordination No deficits were identified Bed Mobility Comment (Bed Mobility) min A, vc's Transfers Transfers toilet transfer;shower transfer Transfer Comments CGA, fww sit<>stand Shower Transfer Type (Shower Transfer) lateral Sayre Level (Shower Transfer) verbal cues;contact guard Assistive Device (Shower Transfer) grab bar, tub rail Toilet Transfer Type (Toilet Transfer) stand-sit Sayre Level (Toilet Transfer) contact guard Toilet Transfer Comments elevated toilet Balance Balance Comments LOB was not noted, general unsteadiness to be expected Activities of Daily Living BADL Assessment/Intervention lower body dressing;upper body dressing Upper Body Dressing Assessment/Training Sayre Level (Upper Body Dressing) minimum assist (75% patient effort) Lower Body Dressing Assessment/Training Sayre Level (Lower Body Dressing) maximum assist (25% patient effort) Clinical Impression Criteria for Skilled Therapeutic Interventions Met (OT) Yes, treatment indicated OT Diagnosis decreased ADLs/IADls OT Problem List-Impairments impacting ADL activity tolerance impaired;pain;post- surgical precautions;range of motion (ROM) Assessment of Occupational Performance 5 or more Performance Deficits Identified Performance Deficits dsg, toileting, bathing, functional/community mobility, household/outdoor chores Planned Therapy Interventions (OT) ADL retraining;progressive activity/exercise;transfer training Clinical Decision Making Complexity (OT) problem focused assessment/low complexity Risk & Benefits of therapy have been explained evaluation/treatment results reviewed;care plan/treatment goals reviewed;risks/benefits reviewed;current/potential barriers reviewed;participants included;patient OT Total Evaluation Time OT Eval, Low Complexity Minutes ([id number]) 8 OT Goals Therapy Frequency (OT) Daily OT Predicted Duration/Target Date for Goal Attainment 01/25/24 OT Goals Upper Body Dressing;Lower Body Dressing;Transfers;Toilet Transfer/Toileting;OT Goal 1 OT: Upper Body Dressing Supervision/stand-by assist;within precautions OT: Lower Body Dressing Supervision/stand-by assist;within precautions;using adaptive equipment OT: Transfer Supervision/stand-by assist;Goal Met;within precautions (walk in shower- goal met) OT: Toilet Transfer/Toileting Supervision/stand-by assist;toilet transfer;within precautions;using adaptive equipment OT: Goal 1 Patient will verbalize at least 2-3 adaptations to ADLs routines at home to accommodate energy level and safety needs.- goal met OT Discharge Planning OT Plan TB dressing, SHT transfer in satellite, assess for need for RTS OT Discharge Recommendation (DC Rec) home with assist OT Rationale for DC Rec defer to ortho team for dc plan- patient has met needed goals for safe discharge home with family to A as needed with IADL's; hotel attendant, driving, errands, cooking and bathing. OT Brief overview of current status min A for bed mobility, SBA, fww functional mobility and walk in shower Total Session Time Total Session Time (sum of timed and untimed services) 8 * Allisno Roach NP - 01/24/2024 7:45 AM CDT [facility] Neurosurgery Progress Note Post OP Day 2 Bilateral L4 to Sacral 1 transforaminal lumbar interbody fusion Interval history: A/Ox4. VSS. Up with SBA and walker. Patient is wearing lumbar support brace when out of bed. Patient reports incisional low back pain. Patient reports reports lower extremity pain is the same. He reports left knee pain without radiation.He denies numbness and tingling. Voiding without difficulties.Patient is passing gas, no BM.Tolerating a regular diet. Dressing CDI. EJNNY output 155 and 120. Pain controlled with oral pain medications. Vital signs: Blood pressure 136/71, pulse 79, temperature 97.4 ??F (36.3 ??C), temperature source Temporal, resp. rate 18, height 1.727 m (5' 8), weight 94.8 kg (208 lb 15.9 oz), SpO2 98%. Exam: Hip flexion/iliopsoas: Right (5); Left (5) Knee extension/Quadriceps: Right (5); Left (5) Knee flexion/hamstrings: Right (5); Left (5) Great toe dorsiflexion/EHL: Right (5); Left (5) Foot dorsiflexion/ Tib. Ant: Right (5); Left (5) Foot plantar flexion/ Gastroc: Right (5); Left (5) Sensation normal to bilateral lower extremities Lumbar incision is covered. Dressing is CDI. Lab Results Component Value Date WBC 7.6 01/22/2024 Lab Results Component Value Date RBC 4.67 01/22/2024 Lab Results Component Value Date HGB 13.3 01/22/2024 Lab Results Component Value Date HCT 40.5 01/22/2024 No components found for: MCT Lab Results Component Value Date MCV 87 01/22/2024 Lab Results Component Value Date MCH 28.5 01/22/2024 Lab Results Component Value Date MCHC 32.8 01/22/2024 Lab Results Component Value Date RDW 13.1 01/22/2024 Lab Results Component Value Date PLT 150 01/22/2024 Last Basic Metabolic Panel: Lab Results Component Value Date NA 136 01/22/2024 Lab Results Component Value Date POTASSIUM 4.5 01/22/2024 Lab Results Component Value Date CHLORIDE 102 01/22/2024 Lab Results Component Value Date MUNA 8.5 01/22/2024 Lab Results Component Value Date CO2 21 01/22/2024 Lab Results Component Value Date BUN 15.7 01/22/2024 Lab Results Component Value Date CR 0.84 01/22/2024 Lab Results Component Value Date GLC 126 01/24/2024 Lab Results Component Value Date INR 1.17 01/22/2024 A/P: 2 Days Post-Op Procedure(s): Bilateral Lumbar 4 to Sacral 1 Transforaminal Lumbar Interbody Fusion with Navigation Plan: 1. Continue with POC, increase activity, up to chair, walking in halls, PT/OT 2. Pain management, continue oral medications 3. Neurology following, pending MRI of brain. 4. Discharge on Allison Roach NP-C [facility] [phone] (office) [phone] (social service coordinator) * Guicho Tobin MD - 01/23/2024 5:39 PM CDT Podiatry 1 Doing well Ambulated over 200 feet Pain controlled Doing well Mobilize with PT JENNY drains on thumbprint suction May remove drains when output < 30 ml Pt to have MRI brain tomorrow per Neurology recommendation Likely home Discharge instructions: No lifting of more than 10 pounds until follow up visit in 4-6 weeks Remove dressing on post op day 2 ( may redress if needed) Ok to shower post op day 1, but, do not scrub or submerge incision under water for 6 weeks Ok to walk as much as tolerated No contact sports until follow up visit No high impact activities such as; running/jogging, snowmobile or 4 tabares riding or any other recreational vehicles May resume blood thinners or Asprin 72 hours post op Call my office at [facility] [phone] or [phone] for increasing redness, swelling or pus draining from the incision, increased pain or any other questions and concerns. * Chilo Garcia MD - 01/23/2024 4:21 PM CDT [facility] Medicine Progress Note - Hospitalist Service Date of Admission: 01/22/2024 Assessment & Plan Patient is a 68-year-old male with history of right hemifacial spasm, hypertension, hyperlipidemia,and NICA, who presented on 01/22/24 for elective spine surgery. He was in the PACU recovering and was noted to have speech slurring which was not present prior to surgery. Code stroke was called. Sympt oms improved. CT of head was obtained and showed no bleed. Stroke neurology recommended non-urgent MRI to ensure no stroke but stroke was not suspected. Problem list: Status post lumbar spine surgery -Postoperative course including pain management DVT prophylaxis per spine surgeon Postoperative dysarthria -Suspect was due to anesthesia and analagesia -No symptoms now -MRI ordered to complete work up. If stroke noted will notify stroke neurology and pursue broader stroke work up. History of chronic right facial spasm -He has had previous outpatient neurology evaluation -He has declined Botox Hypertension history -Continue VISUAL DEVELOPER losartan Hyperlipidemia -Continue VISUAL DEVELOPER Crestor Diet: Advance Diet as Tolerated: Regular Diet Adult DVT Prophylaxis: Pneumatic Compression Devices Boudreaux Catheter: Not present Lines: None Cardiac Monitoring: None Code Status: Full Code Clinically Significant Risk Factors # Hypocalcemia: Lowest Ca = 8.5 mg/dL in last 2 days, will monitor and replace as appropriate # Coagulation Defect: INR = 1.17 (Ref range: 0.85 - 1.15) and/or PTT = 31 Seconds (Ref range: 22 - 38 Seconds), will monitor for bleeding # Obesity: Estimated body mass index is 31.78 kg/m?? as calculated from the following: Height as of this encounter: 1.727 m (5' 8). Weight as of this encounter: 94.8 kg (208 lb 15.9 oz)., PRESENT ON ADMISSION Disposition Plan Medically Ready for Discharge: Anticipated in 2-4 Days Chilo Garcia MD Hospitalist Service [facility] Securely message with [employer] (more info) Text page via [facility] Paging/Directory Interval History No new problems. Speech is baseline. Pain is controlled. Physical Exam Vital Signs: Temp: 98.5 ??F (36.9 ??C) Temp src: Temporal BP: 139/78 Pulse: 93 Resp: 15 SpO2: 97 % O2 Device: None (Room air) Weight: 208 lbs 15.94 oz GENERAL: Comfortable. Cooperative. PSYCH: pleasant, oriented, No acute distress. EYES: PERRLA, Normal conjunctiva. HEART: Regular rate and rhythm. No JVD. Pulses normal. No edema. LUNGS: Clear to auscultation, normal Respiratory effort. ABDOMEN: Soft, no hepatosplenomegaly, normal bowel sounds. EXTREMETIES: No clubbing, cyanosis or ischemia SKIN: Dry to touch, No rash. Medical Decision Making 45 MINUTES SPENT BY ME on the date of service doing chart review, history, exam, documentation & further activities per the note. Data Imaging results reviewed over the past 24 hrs: No results found for this or any previous visit (from the past 24 hour(s)). Recent Labs Lab 01/23/24 0600 01/22/24 1251 01/22/24 1245 01/22/24 0716 WBC -- 7.6 -- 6.6 HGB -- 13.3 -- 14.0 MCV -- 87 -- 86 PLT -- 150 -- 148* INR -- 1.17* -- -- NA -- 136 -- 141 POTASSIUM -- 4.5 -- 4.2 CHLORIDE -- 102 -- 104 CO2 -- 21* -- 24 BUN -- 15.7 -- 15.5 CR -- 0.84 -- 0.83 ANIONGAP -- 13 -- 13 MUNA -- 8.5* -- 9.2 GLC 114* 144* 145* 115* ALBUMIN -- 3.8 -- -- PROTTOTAL -- 6.7 -- -- BILITOTAL -- 0.3 -- -- ALKPHOS -- 82 -- -- ALT -- 35 -- -- AST -- 46* -- -- * Thierno Sharp, PT - 01/23/2024 2:17 PM CDT 01/23/24 1401 Appointment Info Signing Clinician's Name / Credentials (PT) Thierno Sharp DPT Rehab Comments (PT) spinal prec Talkback Host Talkback Host Present (son interpreting) Language samoan Living Environment Living Environment Comments Pt reports living in home with spouse, son, dgt. ~12 stairs to manage with unilateral railing. Ind with mobility at baseline, limited distances. Self-Care Usual Activity Tolerance good Current Activity Tolerance moderate Equipment Currently Used at Home none Fall history within last six months yes Number of times patient has fallen within last six months 1 General Information Onset of Illness/Injury or Date of Surgery 01/22/24 Referring Physician Guicho Tobin MD Patient/Family Therapy Goals Statement (PT) To improve mobility, pain Pertinent History of Current Problem (include personal factors and/or comorbidities that impact thePOC) Per H&P, pt is a 68-year-old male with a history of right hemifacial spasm, hypertension, hyperlipidemia, NICA, who is POD1 s/p L4-S1 fusion. Existing Precautions/Restrictions spinal;other (see comments) (pt with brace, surgical team to clarify use) Cognition Affect/Mental Status (Cognition) WFL Orientation Status (Cognition) oriented x 4 Follows Commands (Cognition) WFL Pain Assessment Patient Currently in Pain (minimal LBP) Posture Posture Protracted shoulders Range of Motion (ROM) ROM Comment decreased spinal ROM Strength (Manual Muscle Testing) Strength (Manual Muscle Testing) Deficits observed during functional mobility Strength Comments functionally demonstrated at least 3/5 B LE strength Bed Mobility Comment, (Bed Mobility) not assessed at evaluation Transfers Comment, (Transfers) CGA sit <> stand with FWW Gait/Stairs (Locomotion) Distance in Feet (Gait) 18 Pattern (Gait) step-through Deviations/Abnormal Patterns (Gait) base of support, wide;gait speed decreased;stride length decreased Comment, (Gait/Stairs) CGA with FWW Balance Balance Comments good sitting; fair+ standing with FWW Sensory Examination Sensory Perception Comments pt with no c/o B/N/T LEs Coordination Coordination no deficits were identified Clinical Impression Criteria for Skilled Therapeutic Intervention Yes, treatment indicated PT Diagnosis (PT) decreased functional mobility Influenced by the following impairments decreased spinal ROM, impaired balance, decreased strenght Functional limitations due to impairments impaired bed mobility, transfers, ambulaiton, stairs Clinical Presentation (PT Evaluation Complexity) stable Clinical Presentation Rationale Pt functional status Clinical Decision Making (Complexity) low complexity Planned Therapy Interventions (PT) balance training;bed mobility training;cryotherapy;gait training;home exercise program;patient/family education;stair training;strengthening;transfer training;postural re-education Risk & Benefits of therapy have been explained care plan/treatment goals reviewed;evaluation/treatment results reviewed;risks/benefits reviewed;current/potential barriers reviewed;participants voiced agreement with care plan;participants included;patient;spouse/significant other;son PT Total Evaluation Time PT Eval, Low Complexity Minutes (33456) 10 Physical Therapy Goals PT Frequency Daily PT Predicted Duration/Target Date for Goal Attainment 01/24/24 PT Goals Bed Mobility;Transfers;Gait;Stairs PT: Bed Mobility Modified independent;Supine to/from sit;Within precautions PT: Transfers Modified independent;Sit to/from stand;Assistive device;Within precautions PT: Gait Modified independent;Assistive device;Greater than 200 feet;Within precautions PT: Stairs Supervision/stand-by assist;Greater than 10 stairs;Rail on right;Assistive device;Withinprecautions Interventions Interventions Quick Adds Gait Training;Therapeutic Activity Therapeutic Activity Therapeutic Activities: dynamic activities to improve functional performance Minutes (59304) 9 Symptoms Noted During/After Treatment Increased pain Treatment Detail/Skilled Intervention Pt in chair on arrival with nursing present, education provided on spinal prec. Currently no orders for brace, but patient has present as he states directed by surgical team prior to admission. Discussed with RN to alert surgical team for clarification. Ax1 fordonning brace, donning for conservative measure until clarified. Instructed in x3 sit <> stand transfers with CGA/SBA, VC for UE placement. Walker heigh modified for improved posturing. Pt in chair at departure, ice applied low back with brace on. Alarm on. Gait Training Gait Training Minutes (12742) 12 Symptoms Noted During/After Treatment (Gait Training) fatigue;increased pain Treatment Detail/Skilled Intervention Instructed pt to ambulate with FWW and CGA/SBA. VC for AD proximity, upright posturing and to decreased UE support as able. No LOB throughout. x1 standing rest break. Cued for step through reciprocal patterning, B heel strike. Declining stair trial at this time. No c/o dizziness. Distance in Feet 280 PT Discharge Planning PT Plan review spinal prec, assess bed mobility, transfers, ambulation, stairs PT Discharge Recommendation (DC Rec) home with assist PT Rationale for DC Rec Pt able to ambulate >250 ft during inital evaluation, anticipate no mobility concerns with d/c to home with support from spouse, son. PT Brief overview of current status SBA with FWW Total Session Time Timed Code Treatment Minutes 21 Total Session Time (sum of timed and untimed services) 31 * Guicho Tobin MD - 01/23/2024 9:42 AM CDT Please begin to mobilize patient OOB to chair AMbulate with assistance Begin PT Will round later this afternoon * Guicho Tobin MD - 01/22/2024 4:26 PM CDT Postop note Patient had a code stroke called postoperatively due to reported slurred speech. He was taken to CT scan, CT angiogram, and perfusion study which showed no acute cerebrovascular accident Currently he is awake alert and oriented and moves all extremities and appears to be doing well. 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 We began to elevate the head of the bed and mobilize him on tomorrow. He may elevate the head of his bed 20 to 30 degrees as needed and also for eating. Continue the Boudreaux catheter overnight. documented in this encounter Consult Notes * Yaya Lacey - 01/22/2024 1:32 PM CDTAssociated Order(s): SPIRITUAL HEALTH SERVICES IP CONSULT SPIRITUAL HEALTH SERVICES - Consult Note [facility] PACU Referral Source: Emotional support for pt and family after code stroke was called. Met pt's son Tato in a family consultation room after he met with one of pt's providers. Gave him safe space to process his initial reactions to the information he just received. Tato shared that pt's spouse and daughter were in the waiting area. He reflected that his americo is strong, that he remains hopeful, and that he is praying for his father. Tato expressed no further needs and wanted to update the rest of the family. Met pt Mr. Willoughby in PACU and introduced myself. [employer] was present. Mr. Willoughby affirmed that he is Confucianist and welcomed prayer. He denied having further needs. Plan: Informed pt and his family how they can request further labeling strategist support. This author and other chaplains remain available per pt/family request. Yaya Lacey M.Div., [facility] Staff [employer] available 31/10 for emergent requests/referrals, either by paging the on-call labeling strategist or by entering an QIANA/STAT consult in [facility], which will also page the on-call labeling strategist. * Farooq Liu MD - 01/22/2024 1:20 PM CDT Hospitalist Consult CC: speech slurring. Responded to code stroke HPI: 68-year-old male with a history of right hemifacial spasm, hypertension, hyperlipidemia, NICA, who presented for elective spine surgery. PACU recovering, patient was noted to have speech slurringwhich was not present prior to surgery. Code stroke was called which I responded to I reviewed the medical chart and spoke to the anesthesiologist in the PACU. I also spoke with the patient. Patient presented for elective lumbar spine surgery. He underwent L4-L5 laminectomy. Medications administered include Decadron IV, 100 mcg fentanyl IV, glycopyrrolate, several doses of IV Dilaudid, Versed, Zofran, Fahad-Synephrine, propofol, thrombin, and rocuronium. He was also administered sugammadex for reversal of rocuronium. I evaluated the patient in the PACU after code stroke was called. Current vital signs notable for systolic blood pressure 125, heart rate 85, no fever, and saturations 96% on 11 L supplemental oxygen Blood glucose was requested at bedside glucometer showed a result of [address] imaging as ordered by anesthesia neurology during the code stroke. Results are pending I spoke with the NEVILLE from neurology service. Patient is not a systemic thrombolytic candidate as hejust underwent surgery and onset time of symptoms is unclear; symptoms were noted after he woke up anesthesia, opioids, and benzodiazepines anesthesia in the PACU. Plan is for admission to the hospital for postoperative care following his lumbar spine surgery. Await results of CT imaging PMH: Past Medical History: Diagnosis Date Hypertension Sleep apnea Medications: No current facility-administered medications for this encounter. Allergies: No Known Allergies Family History: noncontributory Social History: Review of Systems: Comprehensive greater than 10 point review systems otherwise negative besides that detailed above Physical exam: BP 132/81 Pulse 79 Temp (!) 96.7 ??F (35.9 ??C) (Temporal) Resp 16 Ht 1.727 m (5' 8) Wt 98.4 kg (217 lb) SpO2 100% BMI 32.99 kg/m?? PSYCH: pleasant, oriented, No acute distress. Russian interpretor at bedside assisting with communication HEART: Normal S1, S2 with no edema. LUNGS: Clear to auscultation, normal Respiratory effort. ABDOMEN: Soft, no hepatosplenomegaly, normal bowel sounds. SKIN: Dry to touch, No rash. Neurologic: Intermittent right facial spasm. Follows commands. Normal strength of dorsi and plantarflexion. Normal home health care social worker strength. Tongue midline. Pupils equal round and reactive to light. Pertinent laboratory and imaging data reviewed above in HPI Impression: 1. Status post lumbar spine surgery -Postoperative course including pain management DVT prophylaxis per spine surgeon 2. Postoperative dysarthria -Possible medication effect from anesthesia. Received rocuronium, opioid, and benzodiazepine -Rule out metabolic cause. CBC, CMP, and ammonia level ordered. Blood glucose unremarkable - ECG ordered - tele monitoring -Rule out acute CVA. Head CT scan and CT angiogram of the head and neck ordered -Patient reported to me daily alcohol use, but I am not convinced I was getting accurate history from him as he was still recovering in the PACU. Would look into this further after anesthesia wears off. If he is a daily alcohol user would also consider alcohol withdrawal a possible explanation -Stroke neurology consulted when code stroke called -Is not a systemic thrombolytic candidate given time of onset of symptoms unclear (noted during recovery in PACU) and surgery today. Could be considered for localized IR therapy if occlusion noted inlarge vessel Addendum: I spoke with neurology regarding CT imaging results. CT imaging shows no bleed or CVA. Soft plaque in R vertebral artery noted, but not felt to be clinically significant as a cause of this presentation. Neurology suspect symptoms likely related to anesthesia effects, and recommends follow-up nonurgent brain MRI for completeness. This can be obtained later today or tomorrow (brain MRI not yet ordered as pt still recovering in PACU and results will not affect acute management) I communicated the above to the anesthesiologist involved with this patient. She is updating familyregarding results and plans above 3. Hx of chronic R facial spasm - has had previous outpt neuro eval - has declined Botox 3. Hypertension history -Resume appropriate home medications after clarified by pharmacy -If stroke suspected would allow for permissive hypertension 4. Hyperlipidemia -Resume appropriate home medications when clarified by pharmacy Medically Ready for Discharge: Anticipated in 2-4 Days after recovery from surgery. Will also depend on results of CVA work up CODE STATUS: FULL CODE * Livia Black APRN THIRD RIGGER - 01/22/2024 12:41 PM CDT [facility] Stroke Telephone Note I was called by Guicho Tobin on 01/22/24 regarding patient Domingo Willoughby. The patient is a 68 year old male with PMH of HTN and HLD. He presented today for a planned L4-5 & L5-S1 decompressive laminectomy and repair of R L5-S1 dural defect. LKW reported as 0800 when he was anesthestized for the procedure. Upon recovering from the procedure around 1230 he was noted to be confused and slu rring his words. Per on site provider he appears grossly confused, is slurring his words and does not appear to understand what is said to him via interpretor; no identified motor weakness, cranial nerve deficits or other physical exam findings. BP 132/81. Vitals BP: (!) 140/87 Pulse: 85 Resp: 10 Temp: 97.3 ??F (36.3 ??C) Weight: 98.4 kg (217 lb) Stroke Code Data (for stroke code without tele) Stroke code activated 01/22/24 1239 Stroke provider first response 01/22/24 1242 Last known normal 01/22/24 0800 Time of discovery (or onset of symptoms) 01/22/[address] read by Stroke Neuro Provider 01/22/24 1303 Was stroke code de-escalated? Yes 01/22/[address] head: no hemorrhage or other acute findings CTA head/neck: No LVO or dissection; moderate stenosis of R V4 CT perfusion: normal Intravenous Thrombolysis Not given due to: - surgery/trauma within the past 14 days - unclear or unfavorable risk-benefit profile for extended window thrombolysis beyond the conventional 4.5 hour time window Endovascular Treatment Not initiated due to absence of proximal vessel occlusion Impression AMS, slurred speech. Unclear etiology, possible vascular pathology but would seem less likely with no focal deficits reported on exam. Also consider toxic/metabolic, anesthesia reaction etc Recommendations -brain MRI with and without contrast; please page stroke neurology if infarct is identified for further recommendations -metabolic/infectious/toxic workup per primary team Case discussed with vascular neurology attending Dr. Burrell. My recommendations are based on the information provided over the phone by Domingo Willoughby's in-person providers. They are not intended to replace the clinical judgment of his in-person providers. I was not requested to personally see or examine the patient at this time. Livia Black APRN CNP Vascular Neurology To page me or covering stroke neurology team automobile assembler, click here: AMCOM Choose Cna tab at top, then select NEUROLOGY/ALL SITES from middle drop- down box, press Enter, then look for stroke or telestroke for your site. Cosigned by Gustavo Burrell MD at 01/22/2024 2:38 PM CDT Associated attestation - Gustavo Burrell MD - 01/22/2024 2:38 PM CDT Physician Attestation I agree with the information in this note. Gustavo Burrell MD documented in this encounter Nursing Notes * Viji Hussein RN - 01/22/2024 3:22 PM CDT When service writer assumed care for the patient in the holding hallway, the patient endorsed new numbness and tingling in his hands bilaterally. Pt has been on bedrest, so service writer elevated and repositioned upper extremities on pillows. Checked in on patient who states that the n/t has improved. Dr. Tobin made aware of N/T via text page, no call back expected as MD is in the OR and issue seems to be resolving. Viji Hussein RN on 01/22/2024 at 3:25 PM documented in this encounter Miscellaneous Notes * Plan of Care - Angelina Orantes RN - 01/25/2024 12:00 PM CDT Goal Outcome Evaluation: Plan of Care Reviewed With: patient Overall Patient Progress: improvingOverall Patient Progress: improving Reviewed discharge instructions with patient, spouse and son. Questions answered. Patient discharged to home with meds (oxycodone and robaxin), discharge instructions, walker and belongings. Pt and family agreeable to leave. Problem: Adult Inpatient Plan of Care Goal: Absence of Hospital-Acquired Illness or Injury Intervention: Identify and Manage Fall Risk Recent Flowsheet Documentation Taken 01/25/2024 09 by Angelina Orantes RN Safety Promotion/Fall Prevention: lighting adjusted mobility aid in reach nonskid shoes/slippers when out of bed safety round/check completed Intervention: Prevent Skin Injury Recent Flowsheet Documentation Taken 01/25/2024 09 by Angelina Orantes RN Body Position: supine, head elevated Intervention: Prevent Infection Recent Flowsheet Documentation Taken 01/25/2024 09 by Angelina Orantes RN Infection Prevention: hand hygiene promoted rest/sleep promoted single patient room provided Goal: Optimal Comfort and Wellbeing Intervention: Monitor Pain and Promote Comfort Recent Flowsheet Documentation Taken 01/25/2024 1001 by Angelina Orantes RN Pain Management Interventions: medication (see MAR) Taken 01/25/2024 09 by Angelina Orantes RN Pain Management Interventions: medication (see MAR) Problem: Spinal Surgery Goal: Optimal Functional Ability Intervention: Optimize Functional Status Recent Flowsheet Documentation Taken 01/25/2024 09 by Angelina Orantes RN Activity Management: activity adjusted per tolerance Goal: Absence of Infection Signs and Symptoms Intervention: Prevent or Manage Infection Recent Flowsheet Documentation Taken 01/25/2024 0900 by Angelina Orantes RN Infection Prevention: hand hygiene promoted rest/sleep promoted single patient room provided Goal: Optimal Neurologic Function Intervention: Optimize Neurologic Function Recent Flowsheet Documentation Taken 01/25/2024899 by Angelina Orantes RN Body Position: supine, head elevated Range of Motion: active ROM (range of motion) encouraged Goal: Anesthesia/Sedation Recovery Intervention: Optimize Anesthesia Recovery Recent Flowsheet Documentation Taken 01/25/2024899 by Angelina Orantes RN Safety Promotion/Fall Prevention: lighting adjusted mobility aid in reach nonskid shoes/slippers when out of bed safety round/check completed Goal: Optimal Pain Control and Function Intervention: Prevent or Manage Pain Recent Flowsheet Documentation Taken 01/25/2024 100 by Angelina Orantes RN Pain Management Interventions: medication (see MAR) Taken 01/25/2024899 by Angelina Orantes RN Pain Management Interventions: medication (see MAR) Goal: Effective Oxygenation and Ventilation Intervention: Optimize Oxygenation and Ventilation Recent Flowsheet Documentation Taken 01/25/2024899 by Angelina Orantes RN Head of Bed (HOB) Positioning: HOB at 20 degrees Problem: Skin Injury Risk Increased Goal: Skin Health and Integrity Intervention: Plan: Nurse Driven Intervention: Moisture Management Recent Flowsheet Documentation Taken 01/25/2024899 by Angelina Orantes RN Moisture Interventions: Encourage regular toileting Intervention: Plan: Nurse Driven Intervention: Friction and Shear Recent Flowsheet Documentation Taken 01/25/2024899 by Angelina Orantes RN Friction/Shear Interventions: HOB 30 degrees or less Intervention: Optimize Skin Protection Recent Flowsheet Documentation Taken 01/25/2024899 by Angelina Orantes RN Activity Management: activity adjusted per tolerance Head of Bed (HOB) Positioning: HOB at 20 degrees * Plan of Care - Kusum Wood, PT - 01/25/2024 10:06 AM CDT Physical Therapy Discharge Summary Reason for therapy discharge: Discharged to home with assist from and son for ADLs/IADLs and amb on stairs. Progress towards therapy goal(s). See goals on Care Plan in [facility] electronic health record for goal details. Goals partially met. Barriers to achieving goals: discharge from facility. Pt SBA with all mobility, except for Mod I with transfers. Therapy recommendation(s): Continue home exercise program. Pt to continue with home walking program. Goal Outcome Evaluation: * Plan of Care - Renae Cotton RN - 01/25/2024 7:01 AM CDT Goal Outcome Evaluation: Plan of Care Reviewed With: patient Overall Patient Progress: improvingOverall Patient Progress: improving Outcome Evaluation: Pt is alert and oriented x1, assist of 1 with transfers. pain controlled with prn Oxycodone, Robaxin, scheduled tylenol. Primopore dressing cdi to lower back. Jenny with R output 10 ml, L side 15 ml. both JPs d/c this am. gauze and opsite dresings applied. Pt is voiding, bladder scan 61. Plan to d/c home today. Problem: Adult Inpatient Plan of Care Goal: Plan of Care Review Description: The Plan of Care Review/Shift note should be completed every shift. The Outcome Evaluation is a brief statement about your assessment that the patient is improving, declining, or no change. This information will be displayed automatically on your shift note. Outcome: Progressing Flowsheets (Taken 01/25/2024 0658) Outcome Evaluation: Pt is alert and oriented x1, assist of 1 with transfers. pain controlled with prn Oxycodone, Robaxin, scheduled tylenol. Primopore dressing cdi to lower back. Jenny with R output 10 ml, L side 15 ml. both JPs d/c this am. gauze and opsite dresings applied. Pt is voiding, bladder scan 61. Plan to d/c home today. Plan of Care Reviewed With: patient Overall Patient Progress: improving Goal: Patient-Specific Goal (Individualized) Description: You can add care plan individualizations to a care plan. Examples of Individualizationmight be: Parent requests to be called daily at 9am for status, I have a hard time hearing out of my right ear, or Do not touch me to wake me up as it startles me. Outcome: Progressing Goal: Absence of Hospital-Acquired Illness or Injury Outcome: Progressing Intervention: Identify and Manage Fall Risk Recent Flowsheet Documentation Taken 01/25/2024326 by Renae Cotton RN Safety Promotion/Fall Prevention: lighting adjusted mobility aid in reach nonskid shoes/slippers when out of bed safety round/check completed Intervention: Prevent Skin Injury Recent Flowsheet Documentation Taken 01/25/2024326 by Renae Cotton RN Body Position: supine, head elevated Intervention: Prevent Infection Recent Flowsheet Documentation Taken 01/25/2024326 by Renae Cotton RN Infection Prevention: hand hygiene promoted rest/sleep promoted single patient room provided Goal: Optimal Comfort and Wellbeing Outcome: Progressing Goal: Readiness for Transition of Care Outcome: Progressing Problem: Spinal Surgery Goal: Optimal Coping with Surgery Outcome: Progressing Goal: Absence of Bleeding Outcome: Progressing Goal: Effective Bowel Elimination Outcome: Progressing Goal: Fluid and Electrolyte Balance Outcome: Progressing Goal: Optimal Functional Ability Outcome: Progressing Intervention: Optimize Functional Status Recent Flowsheet Documentation Taken 01/25/2024326 by Renae Cotton RN Activity Management: activity adjusted per tolerance Goal: Absence of Infection Signs and Symptoms Outcome: Progressing Intervention: Prevent or Manage Infection Recent Flowsheet Documentation Taken 01/25/2024326 by Renae Cotton RN Infection Prevention: hand hygiene promoted rest/sleep promoted single patient room provided Goal: Optimal Neurologic Function Outcome: Progressing Intervention: Optimize Neurologic Function Recent Flowsheet Documentation Taken 01/25/2024326 by Renae Cotton RN Body Position: supine, head elevated Range of Motion: active ROM (range of motion) encouraged Goal: Anesthesia/Sedation Recovery Outcome: Progressing Intervention: Optimize Anesthesia Recovery Recent Flowsheet Documentation Taken 01/25/2024326 by Renae Cotton RN Safety Promotion/Fall Prevention: lighting adjusted mobility aid in reach nonskid shoes/slippers when out of bed safety round/check completed Goal: Optimal Pain Control and Function Outcome: Progressing Goal: Nausea and Vomiting Relief Outcome: Progressing Goal: Effective Urinary Elimination Outcome: Progressing Goal: Effective Oxygenation and Ventilation Outcome: Progressing Intervention: Optimize Oxygenation and Ventilation Recent Flowsheet Documentation Taken 01/25/2024326 by Renae Cotton RN Head of Bed (HOB) Positioning: HOB at 20 degrees Problem: Skin Injury Risk Increased Goal: Skin Health and Integrity Outcome: Progressing Intervention: Optimize Skin Protection Recent Flowsheet Documentation Taken 01/25/2024326 by Renae Cotton, RN Activity Management: activity adjusted per tolerance Head of Bed (HOB) Positioning: HOB at 20 degrees * Plan of Care - Ann Chapa RN - 01/24/2024 5:10 PM CDT Goal Outcome Evaluation: Plan of Care Reviewed With: patient, family Overall Patient Progress: improvingOverall Patient Progress: improving Outcome Evaluation: pt is A&oX4, on RA. LS CTA. deneis SOB. no N/V. abdoemn soft. dressing CDI.JENNY drain. IV CDI,SL.Pain controlled with PRN Oxycodone and scheduled tylenol.Tolereting regular diet.voiding via bedside urinal.no T/N. A-1 with walker and gate belt, brace on when up.Expected disharge home ,01/25/24. Problem: Adult Inpatient Plan of Care Goal: Plan of Care Review Description: The Plan of Care Review/Shift note should be completed every shift. The Outcome Evaluation is a brief statement about your assessment that the patient is improving, declining, or no change. This information will be displayed automatically on your shift note. Outcome: Progressing Flowsheets (Taken 01/24/2024 1703) Outcome Evaluation: pt is A&oX4, on RA. LS CTA. deneis SOB. no N/V. abdoemn soft. dressing CDI.JENNY drain. IV CDI,SL.Pain controlled with PRN Oxycodone and scheduled tylenol.Tolereting regular diet.voiding via bedside urinal.no T/N. A-1 with walker and gate belt, brace on when up.Expected disharge home ,01/25/24. Plan of Care Reviewed With: patient family Overall Patient Progress: improving Goal: Patient-Specific Goal (Individualized) Description: You can add care plan individualizations to a care plan. Examples of Individualizationmight be: Parent requests to be called daily at 9am for status, I have a hard time hearing out of my right ear, or Do not touch me to wake me up as it startles me. Outcome: Progressing Goal: Absence of Hospital-Acquired Illness or Injury Outcome: Progressing Intervention: Identify and Manage Fall Risk Recent Flowsheet Documentation Taken 01/24/2024 1600 by Ann Chapa RN Safety Promotion/Fall Prevention: lighting adjusted mobility aid in reach nonskid shoes/slippers when out of bed safety round/check completed Intervention: Prevent and Manage VTE (Venous Thromboembolism) Risk Recent Flowsheet Documentation Taken 01/24/2024 1600 by Ann Chapa RN VTE Prevention/Management: SCDs off (sequential compression devices) Intervention: Prevent Infection Recent Flowsheet Documentation Taken 01/24/2024 1600 by Ann Chapa RN Infection Prevention: hand hygiene promoted rest/sleep promoted single patient room provided Goal: Optimal Comfort and Wellbeing Outcome: Progressing Goal: Readiness for Transition of Care Outcome: Progressing Problem: Spinal Surgery Goal: Optimal Coping with Surgery Outcome: Progressing Goal: Absence of Bleeding Outcome: Progressing Intervention: Monitor and Manage Bleeding Recent Flowsheet Documentation Taken 01/24/2024 1600 by Ann Chapa RN Bleeding Management: dressing monitored Goal: Effective Bowel Elimination Outcome: Progressing Goal: Fluid and Electrolyte Balance Outcome: Progressing Goal: Optimal Functional Ability Outcome: Progressing Intervention: Optimize Functional Status Recent Flowsheet Documentation Taken 01/24/2024 1600 by Ann Chapa RN Activity Management: ambulated to bathroom Goal: Absence of Infection Signs and Symptoms Outcome: Progressing Intervention: Prevent or Manage Infection Recent Flowsheet Documentation Taken 01/24/2024 1600 by Ann Chapa RN Infection Prevention: hand hygiene promoted rest/sleep promoted single patient room provided Goal: Optimal Neurologic Function Outcome: Progressing Intervention: Optimize Neurologic Function Recent Flowsheet Documentation Taken 01/24/2024 1600 by Ann Chapa RN Range of Motion: active ROM (range of motion) encouraged Goal: Anesthesia/Sedation Recovery Outcome: Progressing Intervention: Optimize Anesthesia Recovery Recent Flowsheet Documentation Taken 01/24/2024 1600 by Ann Chapa RN Safety Promotion/Fall Prevention: lighting adjusted mobility aid in reach nonskid shoes/slippers when out of bed safety round/check completed Goal: Optimal Pain Control and Function Outcome: Progressing Goal: Nausea and Vomiting Relief Outcome: Progressing Goal: Effective Urinary Elimination Outcome: Progressing Goal: Effective Oxygenation and Ventilation Outcome: Progressing Problem: Skin Injury Risk Increased Goal: Skin Health and Integrity Outcome: Progressing Intervention: Plan: Nurse Driven Intervention: Friction and Shear Recent Flowsheet Documentation Taken 01/24/2024 1600 by Ann Chapa RN Friction/Shear Interventions: HOB 30 degrees or less Intervention: Optimize Skin Protection Recent Flowsheet Documentation Taken 01/24/2024 1600 by Ann Chapa RN Activity Management: ambulated to bathroom * Plan of Care - Angelina Orantes RN - 01/24/2024 3:54 PM CDT Goal Outcome Evaluation: Plan of Care Reviewed With: patient Overall Patient Progress: improvingOverall Patient Progress: improving Pt a&o x4. VSS on RA. Up with assist of 1 gait belt and walker. JENNY x2 to gravity suction draining bright red drainage. Voiding well. Pain is controlled with tylenol and robaxin. IV ancef. Plan isto possibly discharge home tomorrow. Problem: Adult Inpatient Plan of Care Goal: Plan of Care Review Description: The Plan of Care Review/Shift note should be completed every shift. The Outcome Evaluation is a brief statement about your assessment that the patient is improving, declining, or no change. This information will be displayed automatically on your shift note. Outcome: Progressing Flowsheets (Taken 01/24/2024 1554) Plan of Care Reviewed With: patient Overall Patient Progress: improving Goal: Patient-Specific Goal (Individualized) Description: You can add care plan individualizations to a care plan. Examples of Individualizationmight be: Parent requests to be called daily at 9am for status, I have a hard time hearing out of my right ear, or Do not touch me to wake me up as it startles me. Outcome: Progressing Goal: Absence of Hospital-Acquired Illness or Injury Outcome: Progressing Intervention: Identify and Manage Fall Risk Recent Flowsheet Documentation Taken 01/24/2024 1106 by Angelina Orantes RN Safety Promotion/Fall Prevention: lighting adjusted mobility aid in reach nonskid shoes/slippers when out of bed safety round/check completed Intervention: Prevent Skin Injury Recent Flowsheet Documentation Taken 01/24/2024 1106 by Angelina Orantes RN Body Position: supine, head elevated Intervention: Prevent Infection Recent Flowsheet Documentation Taken 01/24/2024 1106 by Angelina Orantes RN Infection Prevention: hand hygiene promoted rest/sleep promoted single patient room provided Goal: Optimal Comfort and Wellbeing Outcome: Progressing Intervention: Monitor Pain and Promote Comfort Recent Flowsheet Documentation Taken 01/24/2024 1002 by Angelina Orantes RN Pain Management Interventions: declines medication (see MAR) Taken 01/24/2024 0700 by Angelina Orantes RN Pain Management Interventions: declines Goal: Readiness for Transition of Care Outcome: Progressing Problem: Spinal Surgery Goal: Optimal Coping with Surgery Outcome: Progressing Goal: Absence of Bleeding Outcome: Progressing Goal: Effective Bowel Elimination Outcome: Progressing Goal: Fluid and Electrolyte Balance Outcome: Progressing Goal: Optimal Functional Ability Outcome: Progressing Intervention: Optimize Functional Status Recent Flowsheet Documentation Taken 01/24/2024 1106 by Angelina Orantes RN Activity Management: activity adjusted per tolerance Goal: Absence of Infection Signs and Symptoms Outcome: Progressing Intervention: Prevent or Manage Infection Recent Flowsheet Documentation Taken 01/24/2024 1106 by Angelina Orantes RN Infection Prevention: hand hygiene promoted rest/sleep promoted single patient room provided Goal: Optimal Neurologic Function Outcome: Progressing Intervention: Optimize Neurologic Function Recent Flowsheet Documentation Taken 01/24/2024 1106 by Angelina Orantes RN Body Position: supine, head elevated Range of Motion: active ROM (range of motion) encouraged Goal: Anesthesia/Sedation Recovery Outcome: Progressing Intervention: Optimize Anesthesia Recovery Recent Flowsheet Documentation Taken 01/24/2024 1106 by Angelina Orantes RN Safety Promotion/Fall Prevention: lighting adjusted mobility aid in reach nonskid shoes/slippers when out of bed safety round/check completed Goal: Optimal Pain Control and Function Outcome: Progressing Intervention: Prevent or Manage Pain Recent Flowsheet Documentation Taken 01/24/2024 1002 by Angelina Orantes RN Pain Management Interventions: declines medication (see MAR) Taken 01/24/2024 0700 by Angelina Orantes RN Pain Management Interventions: declines Goal: Nausea and Vomiting Relief Outcome: Progressing Goal: Effective Urinary Elimination Outcome: Progressing Goal: Effective Oxygenation and Ventilation Outcome: Progressing Intervention: Optimize Oxygenation and Ventilation Recent Flowsheet Documentation Taken 01/24/2024 1106 by Angelina Orantes RN Head of Bed (HOB) Positioning: HOB at 20 degrees Problem: Skin Injury Risk Increased Goal: Skin Health and Integrity Outcome: Progressing Intervention: Plan: Nurse Driven Intervention: Moisture Management Recent Flowsheet Documentation Taken 01/24/2024 110 by Angelina Orantes RN Moisture Interventions: Encourage regular toileting Intervention: Plan: Nurse Driven Intervention: Friction and Shear Recent Flowsheet Documentation Taken 01/24/2024 110 by Angelina Orantes RN Friction/Shear Interventions: HOB 30 degrees or less Intervention: Optimize Skin Protection Recent Flowsheet Documentation Taken 01/24/2024 110 by Angelina Orantes RN Activity Management: activity adjusted per tolerance Head of Bed (HOB) Positioning: HOB at 20 degrees * Plan of Care - Bg Leger RN - 01/24/2024 7:09 AM CDT Goal Outcome Evaluation: Plan of Care Reviewed With: patient Overall Patient Progress: improving Outcome Evaluation: A/ox4; VSS; denies numb/tingling; voids in urinal; JENNY drain; tyl and robaxin pain management; poss d/c home today Problem: Adult Inpatient Plan of Care Goal: Plan of Care Review Description: The Plan of Care Review/Shift note should be completed every shift. The Outcome Evaluation is a brief statement about your assessment that the patient is improving, declining, or no change. This information will be displayed automatically on your shift note. Outcome: Progressing Flowsheets (Taken 01/24/2024 0708) Outcome Evaluation: A/ox4 VSS denies numb/tingling voids in urinal JENNY drain tyl and robaxin pain management poss d/c home today Plan of Care Reviewed With: patient Overall Patient Progress: improving Goal: Patient-Specific Goal (Individualized) Description: You can add care plan individualizations to a care plan. Examples of Individualizationmight be: Parent requests to be called daily at 9am for status, I have a hard time hearing out of my right ear, or Do not touch me to wake me up as it startles me. Outcome: Progressing Goal: Absence of Hospital-Acquired Illness or Injury Outcome: Progressing Intervention: Identify and Manage Fall Risk Recent Flowsheet Documentation Taken 01/23/20242033 by Bg Leger RN Safety Promotion/Fall Prevention: activity supervised assistive device/personal items within reach clutter free environment maintained lighting adjusted nonskid shoes/slippers when out of bed patient and family education room organization consistent safety round/check completed supervised activity Intervention: Prevent Skin Injury Recent Flowsheet Documentation Taken 01/23/20242033 by Bg Leger RN Body Position: supine, head elevated Intervention: Prevent Infection Recent Flowsheet Documentation Taken 01/23/20242033 by Bg Leger RN Infection Prevention: hand hygiene promoted rest/sleep promoted single patient room provided Goal: Optimal Comfort and Wellbeing Outcome: Progressing Intervention: Monitor Pain and Promote Comfort Recent Flowsheet Documentation Taken 01/24/2024 031 by Bg Leger RN Pain Management Interventions: medication (see MAR) Taken 01/23/20242033 by Bg Leger RN Pain Management Interventions: medication (see MAR) Goal: Readiness for Transition of Care Outcome: Progressing Problem: Spinal Surgery Goal: Optimal Coping with Surgery Outcome: Progressing Goal: Absence of Bleeding Outcome: Progressing Goal: Effective Bowel Elimination Outcome: Progressing Goal: Fluid and Electrolyte Balance Outcome: Progressing Goal: Optimal Functional Ability Outcome: Progressing Intervention: Optimize Functional Status Recent Flowsheet Documentation Taken 01/23/20242033 by Bg Leger RN Activity Management: activity adjusted per tolerance activity encouraged Positioning/Transfer Devices: pillows in use Goal: Absence of Infection Signs and Symptoms Outcome: Progressing Intervention: Prevent or Manage Infection Recent Flowsheet Documentation Taken 01/23/20242033 by Bg Leger RN Infection Prevention: hand hygiene promoted rest/sleep promoted single patient room provided Goal: Optimal Neurologic Function Outcome: Progressing Intervention: Optimize Neurologic Function Recent Flowsheet Documentation Taken 01/23/20242033 by Bg Leger RN Body Position: supine, head elevated Goal: Anesthesia/Sedation Recovery Outcome: Progressing Intervention: Optimize Anesthesia Recovery Recent Flowsheet Documentation Taken 01/23/20242033 by Bg Leger RN Safety Promotion/Fall Prevention: activity supervised assistive device/personal items within reach clutter free environment maintained lighting adjusted nonskid shoes/slippers when out of bed patient and family education room organization consistent safety round/check completed supervised activity Goal: Optimal Pain Control and Function Outcome: Progressing Intervention: Prevent or Manage Pain Recent Flowsheet Documentation Taken 01/24/2024310 by Bg Leger RN Pain Management Interventions: medication (see MAR) Taken 01/23/20242033 by Bg Leger RN Pain Management Interventions: medication (see MAR) Goal: Nausea and Vomiting Relief Outcome: Progressing Goal: Effective Urinary Elimination Outcome: Progressing Goal: Effective Oxygenation and Ventilation Outcome: Progressing Intervention: Optimize Oxygenation and Ventilation Recent Flowsheet Documentation Taken 01/23/20242033 by Bg Leger RN Head of Bed (HOB) Positioning: HOB at 20-30 degrees Problem: Skin Injury Risk Increased Goal: Skin Health and Integrity Outcome: Progressing Intervention: Plan: Nurse Driven Intervention: Moisture Management Recent Flowsheet Documentation Taken 01/23/20241999 by Bg Leger RN Moisture Interventions: Encourage regular toileting Bathing/Skin Care: moisturizer applied Intervention: Optimize Skin Protection Recent Flowsheet Documentation Taken 01/23/20242033 by Bg Leger RN Activity Management: activity adjusted per tolerance activity encouraged Head of Bed (HOB) Positioning: HOB at 20-30 degrees * Plan of Care - Stefani Norris RN - 01/23/2024 6:39 PM CDT Goal Outcome Evaluation: Outcome Evaluation: A/Ox4. Family at bedside to help translate. CMS intact. Up with ax1 et walker. Denies dizziness or headache when up. Voiding per urinal. JENNY drains patent with bright red bloody drainage. Tylenol and Robaxin managing pain. Possible discharge home tomorrow. Problem: Adult Inpatient Plan of Care Goal: Plan of Care Review Description: The Plan of Care Review/Shift note should be completed every shift. The Outcome Evaluation is a brief statement about your assessment that the patient is improving, declining, or no change. This information will be displayed automatically on your shift note. 01/23/20241837 by Stefani Norris RN Outcome: Progressing Flowsheets (Taken 01/23/20241837) Outcome Evaluation: A/Ox4. Family at bedside to help translate. CMS intact. Up with ax1 et walker. Denies dizziness or headache when up. Voiding per urinal. JENNY drains patent with bright red bloody drainage. Tylenol and Robaxin managing pain. Possible discharge home tomorrow. 01/23/20241828 by Stefani Norris RN Outcome: Progressing Flowsheets (Taken 01/23/20241828) Outcome Evaluation: A/Ox4. Family at bedside to help translate. CMS intact. Pt ambulated earlier with PT Goal: Patient-Specific Goal (Individualized) Description: You can add care plan individualizations to a care plan. Examples of Individualizationmight be: Parent requests to be called daily at 9am for status, I have a hard time hearing out of my right ear, or Do not touch me to wake me up as it startles me. 01/23/2024 183 by Stefani Nroris RN Outcome: Progressing 01/23/20241828 by Stfeani Norris RN Outcome: Progressing Goal: Absence of Hospital-Acquired Illness or Injury 01/23/20241837 by Stefani Norris RN Outcome: Progressing 01/23/20241828 by Stefani Norris RN Outcome: Progressing Intervention: Identify and Manage Fall Risk Recent Flowsheet Documentation Taken 01/23/2024 174 by Stefani Norris RN Safety Promotion/Fall Prevention: activity supervised assistive device/personal items within reach clutter free environment maintained increased rounding and observation increase visualization of patient lighting adjusted nonskid shoes/slippers when out of bed patient and family education room organization consistent safety round/check completed supervised activity Intervention: Prevent Skin Injury Recent Flowsheet Documentation Taken 01/23/2024 174 by Stefani Norris RN Body Position: supine, head elevated Goal: Optimal Comfort and Wellbeing 01/23/20241837 by Stefani Norris RN Outcome: Progressing 01/23/20241828 by Stefani Norris RN Outcome: Progressing Intervention: Monitor Pain and Promote Comfort Recent Flowsheet Documentation Taken 01/23/2024 173 by Stefani Norris RN Pain Management Interventions: medication (see MAR) Goal: Readiness for Transition of Care 01/23/20241837 by Stefani Norris RN Outcome: Progressing 01/23/20241828 by Stefani Norris RN Outcome: Progressing Problem: Spinal Surgery Goal: Optimal Coping with Surgery 01/23/2024 1838 by Stefani Norris RN Outcome: Progressing 01/23/2024 1829 by Stefani Norris RN Outcome: Progressing Goal: Absence of Bleeding 01/23/2024 1838 by Stefani Norris RN Outcome: Progressing 01/23/2024 1829 by Setfani Norris RN Outcome: Progressing Intervention: Monitor and Manage Bleeding Recent Flowsheet Documentation Taken 01/23/2024 1747 by Stefani Norris RN Bleeding Management: dressing monitored Goal: Effective Bowel Elimination 01/23/2024 183 by Stefani Norris RN Outcome: Progressing 01/23/2024 182 by Stefani Norris RN Outcome: Progressing Goal: Fluid and Electrolyte Balance 01/23/2024 1838 by Stefani Norris RN Outcome: Progressing 01/23/2024 182 by Stefani Norris RN Outcome: Progressing Goal: Optimal Functional Ability 01/23/2024 183 by Stefani Norris RN Outcome: Progressing 01/23/2024 182 by Stefani Norris RN Outcome: Progressing Intervention: Optimize Functional Status Recent Flowsheet Documentation Taken 01/23/2024 174 by Stefani Norris RN Activity Management: activity adjusted per tolerance activity encouraged Goal: Absence of Infection Signs and Symptoms 01/23/2024 1838 by Stefani Norris RN Outcome: Progressing 01/23/2024 1829 by Stefani Norris RN Outcome: Progressing Goal: Optimal Neurologic Function 01/23/2024 183 by Stefani Norris RN Outcome: Progressing 01/23/2024 182 by Stefani Norris RN Outcome: Progressing Intervention: Optimize Neurologic Function Recent Flowsheet Documentation Taken 01/23/2024 174 by Stefani Norris RN Body Position: supine, head elevated Goal: Anesthesia/Sedation Recovery 01/23/2024 183 by Stefani Norris RN Outcome: Progressing 01/23/2024 1829 by Stefani Norris RN Outcome: Progressing Intervention: Optimize Anesthesia Recovery Recent Flowsheet Documentation Taken 01/23/2024 1747 by Stefani Norris RN Safety Promotion/Fall Prevention: activity supervised assistive device/personal items within reach clutter free environment maintained increased rounding and observation increase visualization of patient lighting adjusted nonskid shoes/slippers when out of bed patient and family education room organization consistent safety round/check completed supervised activity Goal: Optimal Pain Control and Function 01/23/2024 1838 by Stefani Norris RN Outcome: Progressing 01/23/2024 1829 by Stefani Norris RN Outcome: Progressing Intervention: Prevent or Manage Pain Recent Flowsheet Documentation Taken 01/23/2024 1737 by Stefani Norris RN Pain Management Interventions: medication (see MAR) Goal: Nausea and Vomiting Relief 01/23/2024 1838 by Stefani Norris RN Outcome: Progressing 01/23/2024 182 by Stefani Norris RN Outcome: Progressing Goal: Effective Urinary Elimination 01/23/2024 183 by Stefani Norris RN Outcome: Progressing 01/23/2024 182 by Stefani oNrris RN Outcome: Progressing Goal: Effective Oxygenation and Ventilation 01/23/2024 183 by Stefani Norris RN Outcome: Progressing 01/23/2024 182 by Stefani Norris RN Outcome: Progressing Intervention: Optimize Oxygenation and Ventilation Recent Flowsheet Documentation Taken 01/23/2024 174 by Stefani Norris RN Head of Bed (HOB) Positioning: HOB at 20 degrees Problem: Skin Injury Risk Increased Goal: Skin Health and Integrity 01/23/2024 183 by Stefani Norris RN Outcome: Progressing 01/23/2024 182 by Stefani Norris RN Outcome: Progressing Intervention: Plan: Nurse Driven Intervention: Moisture Management Recent Flowsheet Documentation Taken 01/23/2024 174 by Stefani Norris RN Moisture Interventions: Encourage regular toileting Intervention: Plan: Nurse Driven Intervention: Friction and Shear Recent Flowsheet Documentation Taken 01/23/2024 174 by Stefani Norris RN Friction/Shear Interventions: HOB 30 degrees or less Intervention: Optimize Skin Protection Recent Flowsheet Documentation Taken 01/23/20241746 by Stefani Norris RN Activity Management: activity adjusted per tolerance activity encouraged Head of Bed (HOB) Positioning: HOB at 20 degrees * Plan of Care - Angelina Orantes RN - 01/23/2024 3:43 PM CDT Goal Outcome Evaluation: Plan of Care Reviewed With: patient Overall Patient Progress: improvingOverall Patient Progress: improving Pt a&o x4. On RA. Up with assist of 1 gait belt and walker. Clarified with Dr. Tobin about back brace, he should wear brace when OOB. Removed boudreaux today. Due to void. Tylenol and robaxin for pain. JENNY x2 intact and draining bright red. CMS intact. Dressing CDI. Right eye twitch at baseline. Plan is to discharge home when ready. Problem: Adult Inpatient Plan of Care Goal: Plan of Care Review Description: The Plan of Care Review/Shift note should be completed every shift. The Outcome Evaluation is a brief statement about your assessment that the patient is improving, declining, or no change. This information will be displayed automatically on your shift note. Outcome: Progressing Flowsheets (Taken 01/23/2024 1543) Plan of Care Reviewed With: patient Overall Patient Progress: improving Goal: Patient-Specific Goal (Individualized) Description: You can add care plan individualizations to a care plan. Examples of Individualizationmight be: Parent requests to be called daily at 9am for status, I have a hard time hearing out of my right ear, or Do not touch me to wake me up as it startles me. Outcome: Progressing Goal: Absence of Hospital-Acquired Illness or Injury Outcome: Progressing Intervention: Identify and Manage Fall Risk Recent Flowsheet Documentation Taken 01/23/2024 1300 by Angelina Orantes RN Safety Promotion/Fall Prevention: activity supervised assistive device/personal items within reach clutter free environment maintained increased rounding and observation increase visualization of patient lighting adjusted nonskid shoes/slippers when out of bed patient and family education room organization consistent safety round/check completed supervised activity Intervention: Prevent and Manage VTE (Venous Thromboembolism) Risk Recent Flowsheet Documentation Taken 01/23/2024 1300 by Angelina Orantes RN VTE Prevention/Management: SCDs off (sequential compression devices) Intervention: Prevent Infection Recent Flowsheet Documentation Taken 01/23/2024 1300 by Angelina Orantes RN Infection Prevention: hand hygiene promoted rest/sleep promoted single patient room provided Goal: Optimal Comfort and Wellbeing Outcome: Progressing Goal: Readiness for Transition of Care Outcome: Progressing Problem: Spinal Surgery Goal: Optimal Coping with Surgery Outcome: Progressing Goal: Absence of Bleeding Outcome: Progressing Goal: Effective Bowel Elimination Outcome: Progressing Goal: Fluid and Electrolyte Balance Outcome: Progressing Goal: Optimal Functional Ability Outcome: Progressing Goal: Absence of Infection Signs and Symptoms Outcome: Progressing Intervention: Prevent or Manage Infection Recent Flowsheet Documentation Taken 01/23/2024 1300 by Angelina Orantes RN Infection Prevention: hand hygiene promoted rest/sleep promoted single patient room provided Goal: Optimal Neurologic Function Outcome: Progressing Goal: Anesthesia/Sedation Recovery Outcome: Progressing Intervention: Optimize Anesthesia Recovery Recent Flowsheet Documentation Taken 01/23/2024 1300 by Angelina Orantes RN Safety Promotion/Fall Prevention: activity supervised assistive device/personal items within reach clutter free environment maintained increased rounding and observation increase visualization of patient lighting adjusted nonskid shoes/slippers when out of bed patient and family education room organization consistent safety round/check completed supervised activity Goal: Optimal Pain Control and Function Outcome: Progressing Goal: Nausea and Vomiting Relief Outcome: Progressing Goal: Effective Urinary Elimination Outcome: Progressing Goal: Effective Oxygenation and Ventilation Outcome: Progressing Problem: Skin Injury Risk Increased Goal: Skin Health and Integrity Outcome: Progressing Intervention: Plan: Nurse Driven Intervention: Moisture Management Recent Flowsheet Documentation Taken 01/23/2024 1300 by Angelina Orantes RN Moisture Interventions: Encourage regular toileting Intervention: Plan: Nurse Driven Intervention: Friction and Shear Recent Flowsheet Documentation Taken 01/23/2024 1300 by Angelina Orantes RN Friction/Shear Interventions: HOB 30 degrees or less * Provider Notification - Stefani Norris RN - 01/23/2024 9:55 AM CDT Clarified with Dr. Tobin in regards to activity orders. Does not need to advance head of bed a certain degree every hour, just sit up in bed slowly to his comfort level, and then ok to start ambulating. * Plan of Care - Bg Leger RN - 01/23/2024 7:38 AM CDT Goal Outcome Evaluation: Plan of Care Reviewed With: patient, family Overall Patient Progress: no changeOverall Patient Progress: no change Outcome Evaluation: dural tear, bedrest til at least noon; boudreaux in after surg until oob; d/c TBD Problem: Adult Inpatient Plan of Care Goal: Plan of Care Review Description: The Plan of Care Review/Shift note should be completed every shift. The Outcome Evaluation is a brief statement about your assessment that the patient is improving, declining, or no change. This information will be displayed automatically on your shift note. Outcome: Not Progressing Flowsheets (Taken 01/23/2024 0737) Outcome Evaluation: dural tear, bedrest til at least noon boudreaux in after surg until oob d/c TBD Plan of Care Reviewed With: patient family Overall Patient Progress: no change Goal: Patient-Specific Goal (Individualized) Description: You can add care plan individualizations to a care plan. Examples of Individualizationmight be: Parent requests to be called daily at 9am for status, I have a hard time hearing out of my right ear, or Do not touch me to wake me up as it startles me. Outcome: Not Progressing Goal: Absence of Hospital-Acquired Illness or Injury Outcome: Not Progressing Intervention: Identify and Manage Fall Risk Recent Flowsheet Documentation Taken 01/23/2024 0240 by Bg Leger RN Safety Promotion/Fall Prevention: activity supervised assistive device/personal items within reach clutter free environment maintained increased rounding and observation increase visualization of patient lighting adjusted nonskid shoes/slippers when out of bed patient and family education room organization consistent safety round/check completed supervised activity Intervention: Prevent Skin Injury Recent Flowsheet Documentation Taken 01/23/2024239 by Bg Leger RN Body Position: supine Intervention: Prevent Infection Recent Flowsheet Documentation Taken 01/23/2024239 by Bg Leger RN Infection Prevention: hand hygiene promoted rest/sleep promoted single patient room provided Goal: Optimal Comfort and Wellbeing Outcome: Not Progressing Intervention: Monitor Pain and Promote Comfort Recent Flowsheet Documentation Taken 01/23/2024239 by Bg Leger RN Pain Management Interventions: medication (see MAR) Goal: Readiness for Transition of Care Outcome: Not Progressing Problem: Spinal Surgery Goal: Optimal Coping with Surgery Outcome: Not Progressing Goal: Absence of Bleeding Outcome: Not Progressing Goal: Effective Bowel Elimination Outcome: Not Progressing Goal: Fluid and Electrolyte Balance Outcome: Not Progressing Goal: Optimal Functional Ability Outcome: Not Progressing Intervention: Optimize Functional Status Recent Flowsheet Documentation Taken 01/23/2024239 by Bg Leger RN Activity Management: bedrest Positioning/Transfer Devices: pillows in use Goal: Absence of Infection Signs and Symptoms Outcome: Not Progressing Intervention: Prevent or Manage Infection Recent Flowsheet Documentation Taken 01/23/2024239 by Bg Leger RN Infection Prevention: hand hygiene promoted rest/sleep promoted single patient room provided Goal: Optimal Neurologic Function Outcome: Not Progressing Intervention: Optimize Neurologic Function Recent Flowsheet Documentation Taken 01/23/2024239 by Bg Leger RN Body Position: supine Goal: Anesthesia/Sedation Recovery Outcome: Not Progressing Intervention: Optimize Anesthesia Recovery Recent Flowsheet Documentation Taken 01/23/2024239 by Bg Leger RN Safety Promotion/Fall Prevention: activity supervised assistive device/personal items within reach clutter free environment maintained increased rounding and observation increase visualization of patient lighting adjusted nonskid shoes/slippers when out of bed patient and family education room organization consistent safety round/check completed supervised activity Goal: Optimal Pain Control and Function Outcome: Not Progressing Intervention: Prevent or Manage Pain Recent Flowsheet Documentation Taken 01/23/2024239 by Bg Leger RN Pain Management Interventions: medication (see MAR) Goal: Nausea and Vomiting Relief Outcome: Not Progressing Goal: Effective Urinary Elimination Outcome: Not Progressing Goal: Effective Oxygenation and Ventilation Outcome: Not Progressing Intervention: Optimize Oxygenation and Ventilation Recent Flowsheet Documentation Taken 01/23/2024239 by Bg Leger RN Head of Bed (HOB) Positioning: HOB lowered Problem: Skin Injury Risk Increased Goal: Skin Health and Integrity Outcome: Not Progressing Intervention: Plan: Nurse Driven Intervention: Moisture Management Recent Flowsheet Documentation Taken 01/22/20241999 by Bg Leger RN Moisture Interventions: Urinary collection device Bathing/Skin Care: linen changed Intervention: Optimize Skin Protection Recent Flowsheet Documentation Taken 01/23/2024 024 by Bg Leger RN Activity Management: bedrest Head of Bed (HOB) Positioning: HOB lowered * Plan of Care - Ketty Chowdary RN - 01/22/2024 7:42 PM CDT Goal Outcome Evaluation: Plan of Care Reviewed With: patient, family Overall Patient Progress: no changeOverall Patient Progress: no change Outcome Evaluation: Discharge TBD Arrived to floor at 1630 JPx2 to bulb suction PIV x2 Boudreaux to remain in place until pt cleared to get OOB Endorses mild pain - refuses pain medication - Tylenol managing discomfort Dressing CDI Dural Tear Protocol continued Family at bedside Problem: Adult Inpatient Plan of Care Goal: Plan of Care Review Description: The Plan of Care Review/Shift note should be completed every shift. The Outcome Evaluation is a brief statement about your assessment that the patient is improving, declining, or no change. This information will be displayed automatically on your shift note. Outcome: Not Progressing Flowsheets (Taken 01/22/2024 194) Outcome Evaluation: Discharge TBD Plan of Care Reviewed With: patient family Overall Patient Progress: no change Goal: Patient-Specific Goal (Individualized) Description: You can add care plan individualizations to a care plan. Examples of Individualizationmight be: Parent requests to be called daily at 9am for status, I have a hard time hearing out of my right ear, or Do not touch me to wake me up as it startles me. Outcome: Not Progressing Goal: Absence of Hospital-Acquired Illness or Injury Outcome: Not Progressing Intervention: Identify and Manage Fall Risk Recent Flowsheet Documentation Taken 01/22/2024 1648 by Ketty Chowdary RN Safety Promotion/Fall Prevention: activity supervised assistive device/personal items within reach clutter free environment maintained increased rounding and observation increase visualization of patient lighting adjusted nonskid shoes/slippers when out of bed patient and family education room organization consistent safety round/check completed supervised activity Intervention: Prevent Skin Injury Recent Flowsheet Documentation Taken 01/22/2024 1648 by Ketty Chowdary RN Body Position: supine Intervention: Prevent Infection Recent Flowsheet Documentation Taken 01/22/2024 1648 by Ketty Chowdary, RN Infection Prevention: hand hygiene promoted rest/sleep promoted single patient room provided Goal: Optimal Comfort and Wellbeing Outcome: Not Progressing Goal: Readiness for Transition of Care Outcome: Not Progressing Intervention: Mutually Develop Transition Plan Recent Flowsheet Documentation Taken 01/22/2024 1700 by Ketty Chowdary, RN Equipment Currently Used at Home: none * Provider Notification - Joie Jones RN - 01/22/2024 1:13 PM CDT MD Notification Notified Person: MD Notified Person Name: Dalia Alexander MDA Notification Date/Time: 01/22/24 12:15 Notification Interaction: in person Purpose of Notification: Patient is not responding verbally, appears confused, per marketing designer patient is not answering some orientation questions appropriately/correctly. Patient is slurring words and slow to respond, this was not the case earlier per marketing designer who helped pre-op patient. Orders Received: Call code stroke to rule out. Comments: Code stroke called around 1230, and patient brought to CT scan. * Op Note - Guicho Tobin MD - 01/22/2024 8:33 AM CDT OPERATIVE REPORT PREOPERATIVE DIAGNOSIS: 1. L4-5 severe stenosis with clumping of nerve roots 2. L5-S1 grade 1 spondylolisthesis with severe stenosis and foraminal stenosis 3. Low back pain 4. Neurogenic claudication 5. Bilateral lower extremity radicular POSTOPERATIVE DIAGNOSIS: 1. Same 2. Severe stenosis at L5-S1 and right with erosion of the dura and exposure of arachnoid 3. The L4-5 and L5-S1 transforaminal lumbar interbody fusion were not performed because of the exposed arachnoid that I did not want to stretch and cause CSF leak PROCEDURE: 1. L4-5 bilateral decompressive laminectomies with medial facetectomies with decompression and exposure of the L4 and L5 nerve roots bilaterally 2. L5-S1 bilateral decompressive laminectomies with medial facetectomies and decompression and exposure of the L5 and S1 nerve roots 3. Placement of ATEC Invictus pedicle screws bilaterally from L4-S1 4. 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 DuraGen, fat graft, DuraSeal and VistaSeal 5. L4-S1 posterior lateral fusion with placement of locally harvested autologous bone 6. Use of Stealth and O-arm intraoperative neuronavigation 7. Use of C-arm fluoroscopy and intraoperative microscope SURGEON: Guicho Tobin MD, MS, FAANS COLLECTIONS CLERK: ST Farhad whose assistance was required throughout the case for positioning, exposure, retraction/suctioning during decompression, implant hardware placement, wound closure and transferred to postoperative bed. INDICATION FOR PROCEDURE: The patient is a 68 year old male that presented to my clinic with neurogenic claudication, low back pain, lumbar radiculopathy and difficulty ambulating. After reviewing the examination and imaging studies, the decision was made to proceed with the above procedure. The patient understood the risks of surgery to be infection, CSF leak, nerve root injury, failure of hardware, the need for recurrent surgery, epidural fibrosis, weakness, coma and . The patient voicedunderstanding and wanted to proceed. DESCRIPTION OF PROCEDURE: The patient was seen in the pre op area and the procedure was discussed with the patient and family once again and all questions were answered. The consent was then signed and the lumbar spine was marked with a marker. The patient was transported to the operating room on [facility] and received general endotracheal anesthesia and a Boudreaux catheter was placed. The patientwas placed on the operating table in the prone position on the Proaxis bed with all pressure pointspadded. The back was then prepped and draped in a normal sterile fashion and C-arm was used to identify the appropriate level. Local anesthesia was injected along the planned incision with 10 blade scalpel used to make a midline incision with dissection down through the subcutaneous tissue to the fascia. The fascia was opened bilaterally with the Bovie cautery. Subperiosteal dissection was used to expose the lamina facet joint and transverse processes from L4-S1. The Versatrac retractor was then placed to retract the paraspinous muscles. Attention then turned to the decompression and the operating microscope was brought into the field and bilateral decompressive laminectomies, medial facetectomies, and foraminotomies were performed with the Midas Abdulkadir drill, the Kerrison rongeur and the pituitary rongeur which were used to remove the spinous process, the lamina and facet joint. This completely decompressed and exposed the L4, L5 and S1 roots bilaterally. The Don ball hook was used to verify that the nerve roots were free at each level. Upon decompressing the dura at L5-S1 on the right, severe stenosis from the right lateral recess had appeared to thin the dura possibly eroding it down to the arachnoid. The hypertrophied bone was decompressed and there was exposed arachnoid without clear spinal fluid leakage. I then decided to repair this area by placing DuraGen on top of thearachnoid surrounding the dural defect and then we obtain subcutaneous fatty tissue which was placed next on top of the dura and DuraSeal was placed over the epidural fat and the DuraGen patch to seal off this exposed arachnoid. There did not appear to be any residual exposed arachnoid and there was no clear spinal fluid leakage. Due to the thin arachnoid that was exposed with no dura covering the arachnoid the decision was made to not perform the L4-5 and L5-S1 transforaminal lumbar interbody fusions with risk of stretching the dura and causing a spinal fluid leak. I did examine the patient's disc at both levels and there was no herniation and therefore I felt it was reasonable to not place the interbody cages The Stealth and O-arm were brought in for intraoperative pedicle screw placement. The pedicle screws were placed using the normal technique of a fixed wing pilot hole with the Midas Abdulkadir drill, the gear shift probe to penetrate the pedicle and the pedicle screws were then navigated down the pedicles of L4, L5 and S1 bilaterally. The connecting rods were secured from L4-S1 and the locking caps were secured with the counter torque system. I then placed 10 ml of VistaSeal over over the dura. Copious irrigation was performed with saline. The wound was irrigated once again and the retractors were removed and decortication of the lateral facet and transverse process was performed with the Midas Abdulkadir drill from L4-S1 and locally harvested autologous bone wwas placed in the lateral gutters along the transverse processes for the posterolateral fusion. Next, 2 Shaun- Flores drains were left subfascially and the fascia was closed with 0 Vicryl, the subcutaneous tissue closed with 2 - 0 and 3-0 Vicryl, and the skin closed with debbie. The patient was then transported back to the stretcher, extubated, and sent to recovery. 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 rosuvastatin (CRESTOR) 40 MG tablet Take 40 mg by mouth daily. documented in this encounter Plan of Treatment Scheduled Orders Name Type Priority Associated Diagnoses Orde r Schedule EKG 12-lead, tracing only EKG STAT One Time for 1 O ccurrences starting 01/22/2024 until 01/22/2024 documented as of this encounter Procedures Procedure Name Priority Date/Time Associated Diagnosis [...] W/O CONTRAST STAT 01/22/2024 1:02 PM CDT TROPONIN T, HIGH SENSITIVITY STAT 01/22/2024 12:51 PM CDT INR STAT 01/22/2024 12:51 PM CDT PARTIAL THROMBOPLASTIN TIME STAT 01/22/2024 12:51 PM CDT COMPREHENSIVE METABOLIC PANEL STAT 01/22/2024 12:51 PM CDT AMMONIA Routine 01/22/2024 12:51 PM CDT CBC WITH PLATELETS STAT 01/22/2024 12 :51 PM CDT GLUCOSE BY METER Routine 01/22/2024 12:4 5 PM CDT XR SURGERY ADELITA FLUORO LESS THAN 5 MIN W STILLS Routine 01/22/2024 11:20 AM CDT XR SURGERY OARM Routine 01/22/2024 9:28 AM CDT FUSION, SPINE, LUMBAR, 2 LEVELS, POSTERIOR APPROACH, USING OPTICAL TRACKING SYSTEM 01/22/2024 7:54 AM CDT Radiculopathy, lumbosacral region Spinal stenosis, lumbar region with neurogenic claudication Herniation of lumbar intervertebral disc with radiculopathy TYPE AND SCREEN, ADULT STAT 7:16 AM CDT ABO/RH TYPE AND SCREEN STAT 7:16 AM CDT BASIC METABOLIC PANEL STAT 01/22/2024 7:16 AM CDT CBC WITH PLATELETS STAT 01/22/2024 7: 16 AM CDT GLUCOSE BY METER Routine 01/22/2024 5:46 AM CDT EKG CARDIAC - HIM SCAN 12:00 AM CDT documented in this encounter Results * (ABNORMAL) Glucose by meter (01/24/2024 6:45 AM CDT) GLUCOSE BY METER POCT 126(H) 70 - 99 mg/dL 01/24/2024 6:52 AM CDT LABORATORY POC Blood, Capillary BLOOD SPECIMEN / Unknown 01/24/2024 6:45 AM CDT 01/24/2024 6:52 AM CDT us Guicho Tobin MD LAB - BEAKER POCT nal Result LABORATORY [facility] Acute Care Lab [address] [facility] (1st floor, no room number) [place] [address] * MR Brain w/o & w [...] MR BRAIN W/O and W CONTRAST LOCATION: [facility] DATE: 01/24/2024 INDICATION: slurred speech after surgery; [...] MR BRAIN W/O and W CONTRAST LOCATION: [facility] DATE: 01/24/2024 INDICATION: slurred speech after surgery; [...] IM MRI ORDERABLES Final Res ult * (ABNORMAL) Glucose by meter (01/23/2024 6:00 AM CDT) GLUCOSE BY METER POCT 114(H) 70 - 99 mg/dL 01/23/2024 6:07 AM CDT RH LABORATORY POC Blood, Capillary BLOOD SPECIMEN / Unknown 01/23/2024 6:00 AM CDT 01/23/2024 6:07 AM CDT us Guicho Tobin MD LAB - BEAKER POCT Fi nal Result LABORATORY [facility] Acute Care Lab [address] [facility] (1st floor, no room number) [place] [address], [facility] * CT Head Perfusion w Contrast (01/22/2024 [...] no evidence of ischemia or infarct. ANASTACIO OJYCE MD SYSTEM ID: [id number] Narrative 01/22/2024 1:57 PM CDT EXAM: CTA [...] the vertex were obtained without intravenous contrast. Wound/Ostomy Clinical Nurse Specialist (topogram) image(s) also obtained and reviewed. HEAD and NECK CTA: During rapid bolus intravenous injection of nonionic contrast material, axial images were obtained using thin collimation multidetector helical technique from the base of the upper aortic arch through the [place]. This CT angiogram data was [...] reconstructed, and reviewed. CONTRAST: 67mL Isovue-370 (accession [id number]), [id number] (accession [id number]) FINDINGS: Head CT demonstrates no intracranial hemorrhage, [...] at the visualized levels. Procedure Note Anastacio Joyce MD - 01/22/2024 EXAM: CTA HEAD NECK [...] the vertex were obtained without intravenous contrast. Wound/Ostomy Clinical Nurse Specialist (topogram) image(s) also obtained and reviewed. HEAD and NECK CTA: During rapid bolus intravenous injection of nonionic contrast material, axial images were obtained using thin collimation multidetector helical technique from the base of the upper aortic arch through the [place]. This CT angiogram data was [...] reconstructed, and reviewed. CONTRAST: 67mL Isovue-370 (accession [id number]), [id number]-370 (accession [id number]) FINDINGS: Head CT demonstrates no intracranial hemorrhage, [...] no evidence of ischemia or infarct. ANASTACIO JOYCE MD SYSTEM ID: [id number] Dalia Alexander MD IMG CT ORDERABLES Final Result * CTA Head [...] no evidence of ischemia or infarct. ANASTACIO JOYCE MD SYSTEM ID: [id number] Narrative 01/22/2024 1:57 PM CDT EXAM: CTA [...] the vertex were obtained without intravenous contrast. Wound/Ostomy Clinical Nurse Specialist (topogram) image(s) also obtained and reviewed. HEAD and NECK CTA: During rapid bolus intravenous injection of nonionic contrast material, axial images were obtained using thin collimation multidetector helical technique from the base of the upper aortic arch through the [place]. This CT angiogram data was [...] reconstructed, and reviewed. CONTRAST: 67mL Isovue-370 (accession [id number]), [id number]-[id number] (accession [id number]) FINDINGS: Head CT demonstrates no intracranial hemorrhage, [...] at the visualized levels. Procedure Note Anastacio Joyce MD - 01/22/2024 EXAM: CTA HEAD NECK [...] the vertex were obtained without intravenous contrast. Wound/Ostomy Clinical Nurse Specialist (topogram) image(s) also obtained and reviewed. HEAD and NECK CTA: During rapid bolus intravenous injection of nonionic contrast material, axial images were obtained using thin collimation multidetector helical technique from the base of the upper aortic arch through the [place]. This CT angiogram data was [...] reconstructed, and reviewed. CONTRAST: 67mL Isovue-370 (accession [id number]), [id number]-370 (accession [id number]) FINDINGS: Head CT demonstrates no intracranial hemorrhage, [...] no evidence of ischemia or infarct. ANASTACIO JOYCE MD SYSTEM ID: [id number] Dalia Alexander MD IM CT ORDERABLES Final Result * CT Head [...] no evidence of ischemia or infarct. ANASTACIO JOYCE MD SYSTEM ID: [id number] Narrative 01/22/2024 1:57 PM CDT EXAM: CTA [...] the vertex were obtained without intravenous contrast. Wound/Ostomy Clinical Nurse Specialist (topogram) image(s) also obtained and reviewed. HEAD and NECK CTA: During rapid bolus intravenous injection of nonionic contrast material, axial images were obtained using thin collimation multidetector helical technique from the base of the upper aortic arch through the [place]. This CT angiogram data was [...] reconstructed, and reviewed. CONTRAST: 67mL Isovue-370 (accession [id number]), 117Isovue-370 (accession [id number]) FINDINGS: Head CT demonstrates no intracranial hemorrhage, [...] at the visualized levels. Procedure Note Anastacio Joyce MD - 01/22/2024 EXAM: CTA HEAD NECK [...] the vertex were obtained without intravenous contrast. Wound/Ostomy Clinical Nurse Specialist (topogram) image(s) also obtained and reviewed. HEAD and NECK CTA: During rapid bolus intravenous injection of nonionic contrast material, axial images were obtained using thin collimation multidetector helical technique from the base of the upper aortic arch through the [place]. This CT angiogram data was [...] reconstructed, and reviewed. CONTRAST: 67mL Isovue-370 (accession [id number]), 117Isovue-370 (accession [id number]) FINDINGS: Head CT demonstrates no intracranial hemorrhage, [...] no evidence of ischemia or infarct. ANASTACIO JOYCE MD SYSTEM ID: [id number] Dalia Alexander MD IMG CT ORDERABLES Final Result * Ammonia (01/22/2024 12:51 PM CDT) Ammonia 28 16 - 60 umol/L 01/22/2024 1:50 PM CDT LABORATORY Blood STRUCTURE OF RIGHT UPPER LIMB / Unknown Venipuncture / Unknown 01/22/2024 12:51 PM CDT 01/22/2024 12:54 PM CDT Farooq Liu MD LAB - BLOOD ORDERABLES Fi nal Result [facility] Lab [address] Lab (1st floor, no room number) [place] [address], [facility] * (ABNORMAL) Comprehensive metabolic panel [...] 0.3 <=1.2 mg/dL 01/22/2024 1:36 PM CDT LABORATORY Blood STRUCTURE OF RIGHT UPPER LIMB / Unknown Venipuncture / Unknown 01/22/2024 12:51 PM CDT 01/22/2024 12:54 PM CDT us Farooq Liu MD LAB - BLOOD ORDERABLES Fi nal Result [facility] [address] Lab (1st floor, no room number) [address] [place] [address] * Troponin T, High Sensitivity (01/22/2024 12:51 PM CDT) Pathologist [facility] Troponin T, High Sensitivity <6 <=22 ng/L [...] LAB - BLOOD ORDERABLES Final R esult [facility] [address] Lab (1st floor, no room number) [place] [id number] [place] [address] * (ABNORMAL) INR (01/22/2024 12:51 PM CDT) Pathologist [facility] INR 1.17(H) 0.85 - 1.15 01/22/2024 1:11 PM CDT RH LABORATORY Blood STRUCTURE OF RIGHT UPPER LIMB / Unknown Venipuncture / Unknown 01/22/2024 12:51 PM CDT 01/22/2024 12:54 PM CDT Dalia Alexander MD LAB - BLOOD ORDERABLES Final R esult LABORATORY [facility] Lab [address] Lab (1st floor, no room number) [place] [id number] [place] [address] * Partial thromboplastin time (01/22/2024 12:51 PM CDT) [facility] aPTT 31 22 - 38 Seconds 01/22/2024 1:11 PM CDT RH LABORATORY Blood STRUCTURE OF RIGHT UPPER LIMB / Unknown Venipuncture / Unknown 01/22/2024 12:51 PM CDT 01/22/2024 12:54 PM CDT Dalia Alexander MD LAB - BLOOD ORDERABLES Final R esult Performing Organization Address City/[facility]/ZIP Co de Phone Number [facility] Lab [address] Lab (1st floor, no room number) [address] * CBC with platelets (01/22/2024 12:51 PM CDT) [facility] WBC Count 7.6 4.0 - 11.0 10e3/uL [...] - BLOOD ORDERABLES Final R esult LABORATORY [facility] Care Lab [address] Lab (1st floor, no room number) [place] [id number] * (ABNORMAL) Glucose by meter (01/22/2024 12:45 PM CDT) [facility] GLUCOSE BY METER POCT 145(H) 70 - 99 mg/dL 01/22/2024 12:52 PM CDT LABORATORY POC Blood, Capillary BLOOD SPECIMEN / Unknown 01/22/2024 12:45 PM CDT 01/22/2024 12:52 PM CDT us Guicho Tobin MD LAB - BEAKER POCT Fi nal Result LABORATORY POC [facility] Acute Care Lab [address] Lab (1st floor, no room number) [place] [address], [facility] * XR Surgery ADELITA L/T 5 Min Fluoro w Stills (01/22/2024 11:20 AM CDT) Narrative [facility] - 01/22/2024 11:21 AM CDT This exam was marked as non-reportable because it will not be read by a radiologist or a [place] non-radiologist provider. Guicho Tobin MD IMG DIAGNOSTIC IMAGI NG ORDERABLES Final Result [facility] * XR Surgery OARM (01/22/2024 9:28 AM CDT) Anatomical Region Laterality Modality Abdomen/Pelvis Radiographic Ciarra ging Narrative 01/24/2024 12:33 PM CDT INTRAOPERATIVE FLUOROSCOPY. 01/22/2024 Intraoperative fluoroscopy supplied to the surgeon during spinal intervention. No spot images obtained. CLAIRE CRUZ MD Procedure Note Claire Cruz MD - 01/24/2024 INTRAOPERATIVE FLUOROSCOPY. 01/22/2024 Intraoperative fluoroscopy supplied to the surgeon during spinal intervention. No spot images obtained. CLAIRE CRUZ MD Guicho Tobin MD G DIAGNOSTIC IMAGI NG ORDERABLES Final Result * Adult Type and Screen (01/22/2024 7:16 AM CDT) ABO/RH(D) O POS 01/22/2024 6:49 AM CDT RH BLOOD BANK Antibody Screen Negative Negative 01/22/2024 6:49 AM CDT RH BLOOD BANK SPECIMEN EXPIRATION DATE [id number] 01/22/2024 6:49 AM CDT RH BLOOD BANK Blood STRUCTURE OF RIGHT UPPER LIMB / Unknown Venipuncture / Unknown 01/22/2024 7:16 AM CDT 01/22/2024 7:22 AM CDT Dalia Alexander MD LAB - BLOOD BANK TEST ORDER Fi nal Result [facility] BLOOD BANK [address] [place] [address], [facility] * (ABNORMAL) Basic metabolic panel (01/22/2024 7:16 AM CDT) Sodium 141 135 - 145 mmol/L 01/22/2024 7:44 AM CDT RH LABORATORY Potassium 4.2 3.4 - 5.3 mmol/L 01/22/2024 7:44 AM CDT RH LABORATORY Chloride 104 98 - 107 mmol/L 01/22/2024 7:44 AM CDT RH LABORATORY Carbon Dioxide (CO2) 24 22 - 29 mmol/L 01/22/2024 7:44 AM CDT RH LABORATORY Anion Gap 13 7 - 15 mmol/L 01/22/2024 7:44 AM CDT RH LABORATORY Urea Nitrogen 15.5 8.0 - 23.0 mg/dL 01/22/2024 7:44 AM CDT RH LABORATORY Creatinine 0.83 0.67 - 1.17 mg/dL 01/22/2024 7:44 AM CDT RH LABORATORY GFR Estimate >90 >60 mL/min/1.7 3m2 01/22/2024 7:44 AM CDT RH LABORATORY Comment:eGFR calculated usin 2020 CKD-EPI equation. Calcium 9.2 8.8 - [...] BLOOD ORDERABLES Final R esult RH LABORATORY [facility] Acute Care Lab [address] Lab (1st floor, no room number) [place] [address], [facility] * (ABNORMAL) CBC with platelets (01/22/2024 7:16 AM CDT) WBC Count 6.6 4.0 - 11.0 10e3/uL 01/22/2024 7:31 AM CDT RH LABORATORY RBC Count 4.94 4.40 - 5.90 10e6/uL 01/22/2024 7:31 AM CDT RH LABORATORY Hemoglobin 14.0 13.3 - 17.7 g/dL 01/22/2024 7:31 AM CDT RH LABORATORY Hematocrit 42.4 40.0 - 53.0 % 01/22/2024 7:31 AM CDT RH LABORATORY MCV 86 78 - 100 fL 01/22/2024 7:31 AM CDT RH LABORATORY MCH 28.3 26.5 - 33.0 pg 01/22/2024 7:31 AM CDT RH LABORATORY MCHC 33.0 31.5 - 36.5 g/dL 01/22/2024 7:31 AM CDT RH LABORATORY RDW 13.1 10.0 - 15.0 % 01/22/2024 7:31 AM CDT RH LABORATORY Platelet Count 148(L) 150 - 450 10e3/uL 01/22/2024 7:31 AM CDT RH LABORATORY Blood STRUCTURE OF RIGHT UPPER LIMB / Unknown Venipuncture / Unknown 01/22/2024 7:16 AM CDT 01/22/2024 7:22 AM CDT us Dalia Alexander MD LAB - BLOOD ORDERABLES Final R esult [facility] Lab [address] Lab (1st floor, no room number) [place] [address] * Glucose by meter (01/22/2024 5:46 AM CDT) [facility] GLUCOSE BY METER POCT 99 70 - 99 mg/dL 01/22/2024 5:53 AM CDT RH LABORATORY POC Blood, venous BLOOD SPECIMEN / Unknown 01/22/2024 5:46 AM CDT 01/22/2024 5:53 AM CDT us Guicho Tobin MD LAB - BEAKER POCT Fi nal Result LABORATORY POC [facility] Acute Care Lab [address] Lab (1st floor, no room number) [place] [address], [facility] * EKG Cardiac - HIM Scan (10/24/2023 12:00 AM CDT) 10/24/2023 us Provider Outside ECG ORDERABLES Final Result documented in this encounter Visit Diagnoses Diagnosis S/P lumbar fusion- Primary Arthrodesis status S/P lumbar fusion Arthrodesis status documented in this encounter Administered Medications Inactive Administered Medications - up to 3 most recent administrations Medication Order MAR Action Action Date Dose Rate Site acetaminophen (TYLENOL) tablet 975 mg 975 mg, Oral, EVERY 8 HOURS, First dose on Mon01/22/24 at 1700, For 3 days, Administer for multimodal surgical pain management. Maximum acetaminophen dose from all sources = 75 mg/kg/day not to exceed 4 grams/day. $Given 01/25/2024 10:01 AM CDT 975 mg $Given 01/25/2024 2:29 AM CDT 975 mg $Given 01/24/2024 6:31 PM CDT 975 mg benzocaine-menthol (CHLORASEPTIC) 6-10 MG lozenge 1 lozenge 1 lozenge, Buccal, EVERY 1 HOUR PRN, sore throat, Starting on Mon01/24/24 at 1838 $Given 01/24/2024 7:13 PM CDT 1 lozenge ceFAZolin (ANCEF) 2 g in 100 mL D5W intermittent infusion Routine, 2 g, Intravenous, EVERY 8 HOURS, First dose on Mon01/22/24 at 1700, First post-op dose due 8 hours after intra-op dose, see eMAR. Discontinue when JENNY drains removed , Indications: Perioperative PharmacoprophylaxisIndications:Margarette operative Pharmacoprophylaxis $New Bag 01/25/2024 2:29 AM CDT 2 g 200 mL/hr $New Bag 01/24/2024 6:33 PM CDT 2 g 200 mL/hr $New Bag 01/24/2024 10:03 AM CDT 2 g 200 mL/hr diphenhydrAMINE (BENADRYL) elixir 12.5 mg 12.5 mg, Oral, EVERY 6 HOURS PRN, itching, Starting on Mon01/22/24 at 1632, Caution to be used when administering multiple DIRECTOR OF HOTEL OPERATIONS depressing meds within a short time frame. diphenhydrAMINE (BENADRYL) injection 12.5 mg 12.5 mg, Intravenous, EVERY 6 HOURS PRN, itching, Only give if patient unable to take PO., Starting on Mon01/22/24 at 1632, Caution to be used when administering multiple DIRECTOR OF HOTEL OPERATIONS depressing meds within a short time frame. gadobutrol (GADAVIST) injection 9.5 mL 9.5 mL, Intravenous, ONCE, On Mon01/24/24 at 0400, For 1 dose, Supplied by, and administered by MRI. $Given 01/24/2024 4:44 AM CDT 9.5 mLs guaiFENesin-dextromethorphan (ROBITUSSIN DM) 100-10 MG/5ML syrup 10 mL 10 mL, Oral, EVERY 4 HOURS PRN, cough, Starting on Marianela 01/25/24 at 1010, If the patient has multiple cough medications ordered PRN, offer in the following order per policy. Move to the next available step if the earlier step is ineffective. Step 1 - guaifenesin (single agent); Step 2 - dextromethorphan (or dextromethorphan + guaifenesin); Step 3 - benzonatate; Step 4 - codeine (or codeine + guaifenesin). $Given 01/25/2024 10:24 A M CDT 10 mLs HYDROmorphone (DILAUDID) injection 0.2 mg 0.2 mg, Intravenous, EVERY 1 HOUR PRN, moderate pain, Starting on Mon01/22/24 at 1632, IF patient unable to take oral pain medication or pain not controlled with oral analgesics. Hold IV PRN opioid dose for analgesic side effects. Notify provider to assess for uncontrolled pain or analgesic side effects. HYDROmorphone (DILAUDID) injection 0.4 mg 0.4 mg, Intravenous, EVERY 1 HOUR PRN, severe pain, Starting on Mon01/22/24 at 1632, IF patient unable to take oral pain medication or pain not controlled with oral analgesics. Hold IV PRN opioid dose for analgesic side effects. Notify provider to assess for uncontrolled pain or analgesic side effects. iopamidol (ISOVUE-370) solution 117 mL 117 mL, Intravenous, ONCE, On Mon01/22/24 at 1300, For 1 dose, To be administered by Imaging staff during CTA Head/Neck scan, and CT Head Perfusion scan, if performed. $Given 01/22/2024 1:01 PM CDT 117 mLs lactated ringers infusion at 75 mL/hr, Intravenous, ONCE, Arrived from PACU with 1L LR spiked - verbal orders obtained to infuse , 1 dose, On Mon01/22/24 at 1800 $New Bag 01/22/2024 6:35 PM CDT 75 mL/hr losartan (COZAAR) tablet 25 mg 25 mg, Oral, DAILY, First dose on Mon01/22/24 at 1700 $Given 01/25/2024 8:02 AM CDT 25 mg $Given 01/24/2024 8:20 AM CDT 25 mg $Given 01/23/2024 9:03 AM CDT 25 mg methocarbamol (ROBAXIN) tablet 750 mg 750 mg, Oral, EVERY 6 HOURS PRN, muscle spasms, Starting on Mon01/22/24 at 1632 $Given 01/25/2024 8:02 AM CDT 750 mg $Given 01/24/2024 11:43 PM CDT 750 mg $Given 01/23/2024 8:34 PM CDT 750 mg naloxone (NARCAN) injection 0.2 mg 0.2 mg, Intravenous, EVERY 2 MIN PRN, opioid reversal, Starting on Mon01/22/24 at 1724, Administer intravenous route when available and notify provider when administered. For unintended sedation or respiratory depression if all of the below criteria are met: ~ respiratory rate LESS than or EQUAL to 8. ~SaO2 less than 92% and or/end-tidal CO2 is greater than 50. ~ the patient is receiving an opioid, has unintended sedations assessed as RASS (-3), and is currently not on mechanical ventilation. RASS scale moderate (-3) is movement or eye opening to voice but no eye contact. Patient Monitoring Once the patient has demonstrated a response to the naloxone, continue to monitor respiratory rate, depth, oxygen saturation and end-tidal CO2 (if available) every 15 minutes x 2, then every 30 minutes x 2, then every 1 hour x 1 after each naloxone dose. Consider transfer to ICU if patient respiratory parameters have not improved after 4 naloxone doses. naloxone (NARCAN) injection 0.2 mg 0.2 mg, Intramuscular, EVERY 2 MIN PRN, opioid reversal, Starting on Mon01/22/24 at 1724, Administer intramuscular if an intravenous route is not available and notify provider when administered. For unintended sedation or respiratory depression if all of the below criteria are met: ~ respiratory rate LESS than or EQUAL to 8. ~SaO2 less than 92% and or/end-tidal CO2 is greater than 50. ~ the patient is receiving an opioid, has unintended sedations assessed as RASS (-3), and is currently not on mechanical ventilation. RASS scale moderate (-3) is movement or eye opening to voice but no eye contact. Patient Monitoring Once the patient has demonstrated a response to the naloxone, continue to monitor respiratory rate, depth, oxygen saturation and end-tidal CO2 (if available) every 15 minutes x 2, then every 30 minutes x 2, then every 1 hour x 1 after each naloxone dose. Consider transfer to ICU if patient respiratory parameters have not improved after 4 naloxone doses. naloxone (NARCAN) injection 0.4 mg 0.4 mg, Intravenous, EVERY 2 MIN PRN, opioid reversal, Starting on Mon01/22/24 at 1724, Administer intravenous route when available and notify provider when administered. For unintended sedation or respiratory depression if all of the below criteria are met: ~ respiratory rate LESS than or EQUAL to 8. ~ SaO2 less than 92% and or/end-tidal CO2 is greater than 50. ~ the patient is receiving an opioid, has unintended sedation assessed as RASS (-4) or (-5) and patient is currently not on mechanical ventilation. RASS scale (-4) is deep sedation with no response to voice but movement or eye opening to physical stimulation. RASS scale (-5) is unarousable. Patient Monitoring Once the patient has demonstrated a response to the naloxone, continue to monitor respiratory rate, depth, oxygen saturation and end-tidal CO2 (if available) every 15 minutes x 2, then every 30 minutes x 2, then every 1 hour x 1 after each naloxone dose. Consider transfer to ICU if patient respiratory parameters have not improved after 4 naloxone doses. naloxone (NARCAN) injection 0.4 mg 0.4 mg, Intramuscular, EVERY 2 MIN PRN, opioid reversal, Starting on Mon01/22/24 at 1724, Administer intramuscular if an intravenous route is not available and notify provider when administered. For unintended sedation or respiratory depression if all of the below criteria are met: ~ respiratory rate LESS than or EQUAL to 8. ~ SaO2 less than 92% and or/end-tidal CO2 is greater than 50. ~ the patient is receiving an opioid, has unintended sedation assessed as RASS (-4) or (-5) and patient is currently not on mechanical ventilation. RASS scale (-4) is deep sedation with no response to voice but movement or eye opening to physical stimulation. RASS scale (-5) is unarousable. Patient Monitoring Once the patient has demonstrated a response to the naloxone, continue to monitor respiratory rate, depth, oxygen saturation and end-tidal CO2 (if available) every 15 minutes x 2, then every 30 minutes x 2, then every 1 hour x 1 after each naloxone dose. Consider transfer to ICU if patient respiratory parameters have not improved after 4 naloxone doses. ondansetron (ZOFRAN ODT) ODT tab 4 mg 4 mg, Oral, EVERY 6 HOURS PRN, nausea, vomiting, Starting on Mon01/22/24 at 1632, This is Step 1 of nausea and vomiting management. If nausea not resolved in 15 minutes, go to Step 2 prochlorperazine (COMPAZINE). Do not push through foil backing. Peel back foil and gently remove. Place on tongue immediately. Administration with liquid unnecessary With dry hands, peel back foil backing and gently remove tablet. Do not push oral disintegrating tablet through foil backing. Administer immediately on tongue and oral disintegrating tablet dissolves in seconds, then swallow with saliva. Liquid not required. ondansetron (ZOFRAN) injection 4 mg 4 mg, Intravenous, EVERY 6 HOURS PRN, nausea, vomiting, Administer over 2-5 Minutes, Starting on Mon01/22/24 at 1632, This is Step 1 of nausea and vomiting management. If nausea not resolved in 15 minutes, go to Step 2 prochlorperazine (COMPAZINE). oxyCODONE (ROXICODONE) tablet 5 mg 5 mg, Oral, EVERY 3 HOURS PRN, moderate pain, Starting on Mon01/22/24 at 1632, Hold oral PRN dose for analgesic side effects. Notify provider to assess for uncontrolled pain or analgesic side effects. 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 $Given 01/25/2024 10:01 AM CDT 5 mg $Given 01/25/2024 5:23 AM CDT 5 mg $Given 01/24/2024 11:43 PM CDT 5 mg oxyCODONE IR (ROXICODONE) tablet 10 mg 10 mg, Oral, EVERY 3 HOURS PRN, severe pain, Starting on Mon01/22/24 at 1632, Hold oral PRN dose for analgesic side effects. Notify provider to assess for uncontrolled pain or analgesic side effects. 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 polyethylene glycol (MIRALAX) Packet 17 g 17 g, Oral, DAILY, First dose on Mon01/23/24 at 0800, To prevent constipation. Mixed prescribed dose in 8 ounces of water, juice or soda. Administer daily starting at 0900 on POD 1. Hold for loose stools. 1 Packet = 17 grams. Mix each gram with at least 1/2 ounce (15 mL) of water - 8 ounces for 17 g dose, 4 ounces for 8.5 g dose, 2 ounces for 4 g dose. Follow with the same volume of water. Hold for loose stools unless being administered as part of a bowel prep regimen or bowel clean out. $Given 01/25/2024 8:04 AM CDT 17 g $Given 01/24/2024 8:21 AM CDT 17 g $Given 01/23/2024 9:05 AM CDT 17 g prochlorperazine (COMPAZINE) injection 5 mg 5 mg, Intravenous, EVERY 6 HOURS PRN, nausea, vomiting, Administer over 1-2 Minutes, Starting on Mon01/22/24 at 1632, This is Step 2 of nausea and vomiting management. If nausea not resolved in 15-30 minutes, Notify provider. prochlorperazine (COMPAZINE) tablet 5 mg 5 mg, Oral, EVERY 6 HOURS PRN, nausea, vomiting, Starting on Mon01/22/24 at 1632, This is Step 2 of nausea and vomiting management. If nausea not resolved in 15-30 minutes, Notify provider. rosuvastatin (CRESTOR) tablet 40 mg 40 mg, Oral, DAILY, First dose on Mon01/22/24 at 1700 $Given 01/25/2024 8:02 AM CDT 40 mg $Given 01/24/2024 8:20 AM CDT 40 mg $Given 01/23/2024 9:02 AM CDT 40 mg senna-docusate (SENOKOT-S/PERICOLACE) 8.6-50 MG per tablet 1 tablet 1 tablet, Oral, 2 TIMES DAILY, First dose on Mon01/22/24 at 2000, To prevent constipation. Hold for loose stools Hold for loose stools. $Given 01/25/2024 8:03 AM CDT 1 tablet $Given 01/24/2024 7:12 PM CDT 1 tablet $Given 01/24/2024 8:19 AM CDT 1 tablet sodium chloride (PF) 0.9% PF flush 3 mL 3 mL, Intracatheter, EVERY 8 HOURS, First dose on Mon01/22/24 at 1700, to lock peripheral IV dormant line $Given 01/25/2024 8:05 AM CDT 3 mLs $Given 01/25/2024 2:35 AM CDT 3 mLs $Given 01/24/2024 4:49 PM CDT 3 mLs sodium chloride 0.9 % bag for CT scan flush use As instructed, 100 mL, ONCE, On Mon01/22/24 at 1300, For 1 dose, This entry is for use by Radiology to intermittently used as a flush in patients receiving a CT scan. $Given 01/22/2024 1:01 PM CDT 100 mLs documented in this encounter Active and Recently Administered Medications Times are shown in CDT. Scheduled Medication Order 01/23/2024 01/24/2024 01/25/2024 acetaminophen (TYLENOL) tablet 975 mg (COMPLETED) 975 mg, Oral, EVERY 8 HOURS, First dose on Mon01/22/24 at 1700, For 3 days, Administer for multimodal surgical pain management. Maximum acetaminophen dose from all sources = 75 mg/kg/day not to exceed 4 grams/day. 0240 ($Given - Provider: Bg Leger RN)1043 ($Given - Provider: Angelina Orantes RN)1737 ($Given - Provider: Stefani Norris RN) 0311 ($Given - Provider: Bg Leger RN)1002 ($Given - Provider: Angelina Orantes RN)1831 ($Given - Provider: Ann Chapa RN) 0229 ($Given - Provider: Renae Cotton RN)1001 ($Given - Provider: Angelina Orantes RN) ceFAZolin (ANCEF) 2 g in 100 mL D5W intermittent infusion Routine, 2 g, Intravenous, EVERY 8 HOURS, First dose on Mon01/22/24 at 1700, First post-op dose due 8 hours after intra-op dose, see eMAR. Discontinue when JENNY drains removed , Indications: Perioperative Pharmacoprophylaxis 0240 ($New Bag - Provider: Bg Leger RN)1043 ($New Bag - Provider: Angelina Orantes RN)1737 ($New Bag - Provider: Stefani Norris RN) 0311 ($New Bag - Provider: Bg Leger RN)1003 ($New Bag - Provider: Angelina Orantes, KRISTI)1833 ($New Bag - Provider: Ann Chapa RN) 0229 ($New Bag - Provider: Renae Cotton RN)1049 (Not Given - Provider: Angelina Orantes RN - Reason: Med discontinued by Provider - Comment: JENNY drains are out) gadobutrol (GADAVIST) injection 9.5 mL (COMPLETED) 9.5 mL, Intravenous, ONCE, On Mon01/24/24 at 0400, For 1 dose, Supplied by, and administered by MRI. 0444 ($Given - Provider: Kyung Rodriguez) losartan (COZAAR) tablet 25 mg 25 mg, Oral, DAILY, First dose on Mon01/22/24 at 1700 0903 ($Given - Provider: Angelina Orantes RN) 0820 ($Given - Provider: Angelina Orantes, KRISTI) 0802 ($Given - Provider: Angelina Orantes, KRISTI) polyethylene glycol (MIRALAX) Packet 17 g 17 g, Oral, DAILY, First dose on Mon01/23/24 at 0800, To prevent constipation. Mixed prescribed dose in 8 ounces of water, juice or soda. Administer daily starting at 0900 on POD 1. Hold for loose stools. 1 Packet = 17 grams. Mix each gram with at least 1/2 ounce (15 mL) of water - 8 ounces for 17 g dose, 4 ounces for 8.5 g dose, 2 ounces for 4 g dose. Follow with the same volume of water. Hold for loose stools unless being administered as part of a bowel prep regimen or bowel clean out. 0905 ($Given - Provider: Angelina Orantes RN) 0821 ($Given - Provider: Angelina Orantes RN) 0804 ($Given - Provider: Angelina Orantes RN) rosuvastatin (CRESTOR) tablet 40 mg 40 mg, Oral, DAILY, First dose on Mon01/22/24 at 1700 0902 ($Given - Provider: Angelina Orantes RN) 0820 ($Given - Provider: Angelina Orantes RN) 0802 ($Given - Provider: Angelina Orantes RN) senna-docusate (SENOKOT-S/PERICOLACE) 8.6-50 MG per tablet 1 tablet 1 tablet, Oral, 2 TIMES DAILY, First dose on Mon01/22/24 at 2000, To prevent constipation. Hold for loose stools Hold for loose stools. 0905 ($Given - Provider: Angelina Orantes RN)2034 ($Given - Provider: Bg Leger RN) 0819 ($Given - Provider: Angelina Orantes RN)1912 ($Given - Provider: Ann Chapa, KRISTI) 0803 ($Given - Provider: Angelina Orantes RN) sodium chloride (PF) 0.9% PF flush 3 mL 3 mL, Intracatheter, EVERY 8 HOURS, First dose on Mon01/22/24 at 1700, to lock peripheral IV dormant line 0231 (Not Given - Provider: Bg Leger RN - Reason: IV Infusing)1052 ($Given - Provider: Angelina Orantes RN)1741 ($Given - Provider: Stefani Norris RN) 0056 (Canceled Entry - Provider: Bg Leger RN - Comment: gave with abx)0821 ($Given - Provider: Angelina Orantes RN)1649 ($Given - Provider: Ann Chapa RN) 0235 ($Given - Provider: Renae Cotton RN)0805 ($Given - Provider: Angelina Orantes RN) PRN Medication Order 01/23/2024 01/24/2024 01/25/2024 acetaminophen (TYLENOL) tablet 650 mg 650 mg, Oral, EVERY 4 HOURS PRN, other, For optimal non-opioid multimodal pain management to improve pain control., Starting on Mon01/25/24 at 1700, May give first dose 4 hours after last scheduled dose of acetaminophen (TYLENOL). Maximum acetaminophen dose from all sources = 75 mg/kg/day not to exceed 4 grams/day. benzocaine-menthol (CHLORASEPTIC) 6-10 MG lozenge 1 lozenge 1 lozenge, Buccal, EVERY 1 HOUR PRN, sore throat, Starting on Mon01/24/24 at 1838 1908 (Not Given - Provider: Ann Chapa RN - Reason: Other - Comment: drop on floore.)1913 ($Given - Provider: Ann Chapa RN - Comment: pulled second time. first one watsed.) bisacodyl (DULCOLAX) suppository 10 mg 10 mg, Rectal, DAILY PRN, constipation, Use if magnesium hydroxide (MILK of MAGNESIA) is not effective after 24 hours. May discontinue if patient having bowel movement., Starting on Mon01/25/24 at 0000, Hold for loose stools. diphenhydrAMINE (BENADRYL) elixir 12.5 mg(Linked Group 1) 12.5 mg, Oral, EVERY 6 HOURS PRN, itching, Starting on Mon01/22/24 at 1632, Caution to be used when administering multiple DIRECTOR OF HOTEL OPERATIONS depressing meds within a short time frame. diphenhydrAMINE (BENADRYL) injection 12.5 mg(Linked Group 1) 12.5 mg, Intravenous, EVERY 6 HOURS PRN, itching, Only give if patient unable to take PO., Starting on Mon01/22/24 at 1632, Caution to be used when administering multiple DIRECTOR [employer] H[employer] OPERATIONS depressing meds within a short time frame. guaiFENesin-dextromethorph an (ROBITUSSIN DM) 100-10 MG/5ML syrup 10 mL 10 mL, Oral, EVERY 4 HOURS PRN, cough, Starting on Mon01/25/24 at 1010, If the patient has multiple cough medications ordered PRN, offer in the following order per policy. Move to the next available step if the earlier step is ineffective. Step 1 - guaifenesin (single agent); Step 2 - dextromethorphan (or dextromethorphan + guaifenesin); Step 3 - benzonatate; Step 4 - codeine (or codeine + guaifenesin). 1024 ($Given - Provider: Angelina Orantes RN) HYDROmorphone (DILAUDID) injection 0.2 mg(Linked Group 2) 0.2 mg, Intravenous, EVERY 1 HOUR PRN, moderate pain, Starting on Mon01/22/24 at 1632, IF patient unable to take oral pain medication or pain not controlled with oral analgesics. Hold IV PRN opioid dose for analgesic side effects. Notify provider to assess for uncontrolled pain or analgesic side effects. HYDROmorphone (DILAUDID) injection 0.4 mg(Linked Group 2) 0.4 mg, Intravenous, EVERY 1 HOUR PRN, severe pain, Starting on Mon01/22/24 at 1632, IF patient unable to take oral pain medication or pain not controlled with oral analgesics. Hold IV PRN opioid dose for analgesic side effects. Notify provider to assess for uncontrolled pain or analgesic side effects. lidocaine (LMX4) cream Topical, EVERY 1 HOUR PRN, pain, with VAD insertion, Starting on Mon01/22/24 at 1632, Apply at least 30 minutes prior to VAD insertion in divided doses as needed for size of site for insertion. MAX Dose: 2.5 g ( of 5 g tube) Do NOT give if patient has a history of allergy to any local anesthetic or any alexandrea product. Do NOT use both lidocaine intradermal/subcutaneous injection and the lidocaine cream on the same site. lidocaine 1 % 0.1-1 mL 0.1-1 mL, Other, EVERY 1 HOUR PRN, mild pain with VAD insertion, Starting on Mon01/22/24 at 1632, MAX dose 1 mL subcutaneous OR intradermal along the side of the vein in divided doses as needed for VAD insertion. Do NOT give if patient has a history of allergy to any local anesthetic or any alexandrea product. Do NOT use both lidocaine intradermal/subcutaneous injection and the lidocaine cream on the same site. magnesium hydroxide (MILK OF MAGNESIA) suspension 30 mL 30 mL, Oral, DAILY PRN, constipation, Use if polyethylene glycol (Miralax) is not effective after 24 hours., Starting on Mon01/24/24 at 0000, Shake well. Hold for loose stools. methocarbamol (ROBAXIN) tablet 750 mg 750 mg, Oral, EVERY 6 HOURS PRN, muscle spasms, Starting on Mon01/22/24 at 1632 1431 ($Given - Provider: Angelina Orantes, RN)2034 ($Given - Provider: Bg Leger RN) 2343 ($Given - Provider: Renae Cotton RN) 0802 ($Given - Provider: Angelina Orantes, KRISTI) naloxone (NARCAN) injection 0.2 mg(Linked Group 3) 0.2 mg, Intravenous, EVERY 2 MIN PRN, opioid reversal, Starting on Mon01/22/24 at 1724, Administer intravenous route when available and notify provider when administered. For unintended sedation or respiratory depression if all of the below criteria are met: ~ respiratory rate LESS than or EQUAL to 8. ~SaO2 less than 92% and or/end-tidal CO2 is greater than 50. ~ the patient is receiving an opioid, has unintended sedations assessed as RASS (-3), and is currently not on mechanical ventilation. RASS scale moderate (-3) is movement or eye opening to voice but no eye contact. Patient Monitoring Once the patient has demonstrated a response to the naloxone, continue to monitor respiratory rate, depth, oxygen saturation and end-tidal CO2 (if available) every 15 minutes x 2, then every 30 minutes x 2, then every 1 hour x 1 after each naloxone dose. Consider transfer to ICU if patient respiratory parameters have not improved after 4 naloxone doses. naloxone (NARCAN) injection 0.2 mg(Linked Group 3) 0.2 mg, Intramuscular, EVERY 2 MIN PRN, opioid reversal, Starting on Mon01/22/24 at 1724, Administer intramuscular if an intravenous route is not available and notify provider when administered. For unintended sedation or respiratory depression if all of the below criteria are met: ~ respiratory rate LESS than or EQUAL to 8. ~SaO2 less than 92% and or/end-tidal CO2 is greater than 50. ~ the patient is receiving an opioid, has unintended sedations assessed as RASS (-3), and is currently not on mechanical ventilation. RASS scale moderate (-3) is movement or eye opening to voice but no eye contact. Patient Monitoring Once the patient has demonstrated a response to the naloxone, continue to monitor respiratory rate, depth, oxygen saturation and end-tidal CO2 (if available) every 15 minutes x 2, then every 30 minutes x 2, then every 1 hour x 1 after each naloxone dose. Consider transfer to ICU if patient respiratory parameters have not improved after 4 naloxone doses. naloxone (NARCAN) injection 0.4 mg(Linked Group 3) 0.4 mg, Intravenous, EVERY 2 MIN PRN, opioid reversal, Starting on Mon01/22/24 at 1724, Administer intravenous route when available and notify provider when administered. For unintended sedation or respiratory depression if all of the below criteria are met: ~ respiratory rate LESS than or EQUAL to 8. ~ SaO2 less than 92% and or/end-tidal CO2 is greater than 50. ~ the patient is receiving an opioid, has unintended sedation assessed as RASS (-4) or (-5) and patient is currently not on mechanical ventilation. RASS scale (-4) is deep sedation with no response to voice but movement or eye opening to physical stimulation. RASS scale (-5) is unarousable. Patient Monitoring Once the patient has demonstrated a response to the naloxone, continue to monitor respiratory rate, depth, oxygen saturation and end-tidal CO2 (if available) every 15 minutes x 2, then every 30 minutes x 2, then every 1 hour x 1 after each naloxone dose. Consider transfer to ICU if patient respiratory parameters have not improved after 4 naloxone doses. naloxone (NARCAN) injection 0.4 mg(Linked Group 3) 0.4 mg, Intramuscular, EVERY 2 MIN PRN, opioid reversal, Starting on Mon01/22/24 at 1724, Administer intramuscular if an intravenous route is not available and notify provider when administered. For unintended sedation or respiratory depression if all of the below criteria are met: ~ respiratory rate LESS than or EQUAL to 8. ~ SaO2 less than 92% and or/end-tidal CO2 is greater than 50. ~ the patient is receiving an opioid, has unintended sedation assessed as RASS (-4) or (-5) and patient is currently not on mechanical ventilation. RASS scale (-4) is deep sedation with no response to voice but movement or eye opening to physical stimulation. RASS scale (-5) is unarousable. Patient Monitoring Once the patient has demonstrated a response to the naloxone, continue to monitor respiratory rate, depth, oxygen saturation and end-tidal CO2 (if available) every 15 minutes x 2, then every 30 minutes x 2, then every 1 hour x 1 after each naloxone dose. Consider transfer to ICU if patient respiratory parameters have not improved after 4 naloxone doses. ondansetron (ZOFRAN ODT) ODT tab 4 mg(Linked Group 4) 4 mg, Oral, EVERY 6 HOURS PRN, nausea, vomiting, Starting on Mon01/22/24 at 1632, This is Step 1 of nausea and vomiting management. If nausea not resolved in 15 minutes, go to Step 2 prochlorperazine (COMPAZINE). Do not push through foil backing. Peel back foil and gently remove. Place on tongue immediately. Administration with liquid unnecessary With dry hands, peel back foil backing and gently remove tablet. Do not push oral disintegrating tablet through foil backing. Administer immediately on tongue and oral disintegrating tablet dissolves in seconds, then swallow with saliva. Liquid not required. ondansetron (ZOFRAN) injection 4 mg(Linked Group 4) 4 mg, Intravenous, EVERY 6 HOURS PRN, nausea, vomiting, Administer over 2-5 Minutes, Starting on Mon01/22/24 at 1632, This is Step 1 of nausea and vomiting management. If nausea not resolved in 15 minutes, go to Step 2 prochlorperazine (COMPAZINE). oxyCODONE (ROXICODONE) tablet 5 mg(Linked Group 5) 5 mg, Oral, EVERY 3 HOURS PRN, moderate pain, Starting on Mon01/22/24 at 1632, Hold oral PRN dose for analgesic side effects. Notify provider to assess for uncontrolled pain or analgesic side effects. 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 1646 ($Given - Provider: Ann Chapa RN)2343 ($Given - Provider: Renae Cotton, KRISTI) 0523 ($Given - Provider: Renae Cotton RN)1001 ($Given - Provider: Angelina Oarntes RN) oxyCODONE IR (ROXICODONE) tablet 10 mg(Linked Group 5) 10 mg, Oral, EVERY 3 HOURS PRN, severe pain, Starting on Mon01/22/24 at 1632, Hold oral PRN dose for analgesic side effects. Notify provider to assess for uncontrolled pain or analgesic side effects. 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 1646 (See Alternative - Provider: Ann Chapa, RN)2343 (See Alternative - Provider: Renae Cotton, RN) 0523 (See Alternative - Provider: Renae Cotton, RN)1001 (See Alternative - Provider: Angelina Orantes, KRISTI) prochlorperazine (COMPAZINE) injection 5 mg(Linked Group 6) 5 mg, Intravenous, EVERY 6 HOURS PRN, nausea, vomiting, Administer over 1-2 Minutes, Starting on Mon01/22/24 at 1632, This is Step 2 of nausea and vomiting management. If nausea not resolved in 15-30 minutes, Notify provider. prochlorperazine (COMPAZINE) tablet 5 mg(Linked Group 6) 5 mg, Oral, EVERY 6 HOURS PRN, nausea, vomiting, Starting on Mon01/22/24 at 1632, This is Step 2 of nausea and vomiting management. If nausea not resolved in 15-30 minutes, Notify provider. sodium chloride (PF) 0.9% PF flush 3 mL 3 mL, Intracatheter, EVERY 1 MIN PRN, line flush, other, to ensure patency or to lock dormant line, Starting on Mon01/22/24 at 1632 Linked Groups Order Group 1: diphenhydrAMINE (BENADRYL) elixir 12.5 mgJump to med 12.5 mg, Oral, EVERY 6 HOURS PRN, itching, Starting on Mon01/22/24 at 1632, Caution to be used when administering multiple [employer]PER[employer] depressing meds within a short time frame. Or diphenhydrAMINE (BENADRYL) injection 12.5 mgJump to med 12.5 mg, Intravenous, EVERY 6 HOURS PRN, itching, Only give if patient unable to take PO., Starting on Mon01/22/24 at 1632, Caution to be used when administering multiple [employer]PERATIONS depressing meds within a short time frame. Group 2: HYDROmorphone (DILAUDID) injection 0.2 mgJump to med 0.2 mg, Intravenous, EVERY 1 HOUR PRN, moderate pain, Starting on Mon01/22/24 at 1632, IF patient unable to take oral pain medication or pain not controlled with oral analgesics. Hold IV PRN opioid dose for analgesic side effects. Notify provider to assess for uncontrolled pain or analgesic side effects. Or HYDROmorphone (DILAUDID) injection 0.4 mgJump to med 0.4 mg, Intravenous, EVERY 1 HOUR PRN, severe pain, Starting on Mon01/22/24 at 1632, IF patient unable to take oral pain medication or pain not controlled with oral analgesics. Hold IV PRN opioid dose for analgesic side effects. Notify provider to assess for uncontrolled pain or analgesic side effects. Group 3: naloxone (NARCAN) injection 0.2 mgJump to med 0.2 mg, Intravenous, EVERY 2 MIN PRN, opioid reversal, Starting on Mon01/22/24 at 1724, Administer intravenous route when available and notify provider when administered. For unintended sedation or respiratory depression if all of the below criteria are met: ~ respiratory rate LESS than or EQUAL to 8. ~SaO2 less than 92% and or/end-tidal CO2 is greater than 50. ~ the patient is receiving an opioid, has unintended sedations assessed as RASS (-3), and is currently not on mechanical ventilation. RASS scale moderate (-3) is movement or eye opening to voice but no eye contact. Patient Monitoring Once the patient has demonstrated a response to the naloxone, continue to monitor respiratory rate, depth, oxygen saturation and end-tidal CO2 (if available) every 15 minutes x 2, then every 30 minutes x 2, then every 1 hour x 1 after each naloxone dose. Consider transfer to ICU if patient respiratory parameters have not improved after 4 naloxone doses. Or naloxone (NARCAN) injection 0.4 mgJump to med 0.4 mg, Intravenous, EVERY 2 MIN PRN, opioid reversal, Starting on Mon01/22/24 at 1724, Administer intravenous route when available and notify provider when administered. For unintended sedation or respiratory depression if all of the below criteria are met: ~ respiratory rate LESS than or EQUAL to 8. ~ SaO2 less than 92% and or/end-tidal CO2 is greater than 50. ~ the patient is receiving an opioid, has unintended sedation assessed as RASS (-4) or (-5) and patient is currently not on mechanical ventilation. RASS scale (-4) is deep sedation with no response to voice but movement or eye opening to physical stimulation. RASS scale (-5) is unarousable. Patient Monitoring Once the patient has demonstrated a response to the naloxone, continue to monitor respiratory rate, depth, oxygen saturation and end-tidal CO2 (if available) every 15 minutes x 2, then every 30 minutes x 2, then every 1 hour x 1 after each naloxone dose. Consider transfer to ICU if patient respiratory parameters have not improved after 4 naloxone doses. Or naloxone (NARCAN) injection 0.2 mgJump to med 0.2 mg, Intramuscular, EVERY 2 MIN PRN, opioid reversal, Starting on Mon01/22/24 at 1724, Administer intramuscular if an intravenous route is not available and notify provider when administered. For unintended sedation or respiratory depression if all of the below criteria are met: ~ respiratory rate LESS than or EQUAL to 8. ~SaO2 less than 92% and or/end-tidal CO2 is greater than 50. ~ the patient is receiving an opioid, has unintended sedations assessed as RASS (-3), and is currently not on mechanical ventilation. RASS scale moderate (-3) is movement or eye opening to voice but no eye contact. Patient Monitoring Once the patient has demonstrated a response to the naloxone, continue to monitor respiratory rate, depth, oxygen saturation and end-tidal CO2 (if available) every 15 minutes x 2, then every 30 minutes x 2, then every 1 hour x 1 after each naloxone dose. Consider transfer to ICU if patient respiratory parameters have not improved after 4 naloxone doses. Or naloxone (NARCAN) injection 0.4 mgJump to med 0.4 mg, Intramuscular, EVERY 2 MIN PRN, opioid reversal, Starting on Mon01/22/24 at 1724, Administer intramuscular if an intravenous route is not available and notify provider when administered. For unintended sedation or respiratory depression if all of the below criteria are met: ~ respiratory rate LESS than or EQUAL to 8. ~ SaO2 less than 92% and or/end-tidal CO2 is greater than 50. ~ the patient is receiving an opioid, has unintended sedation assessed as RASS (-4) or (-5) and patient is currently not on mechanical ventilation. RASS scale (-4) is deep sedation with no response to voice but movement or eye opening to physical stimulation. RASS scale (-5) is unarousable. Patient Monitoring Once the patient has demonstrated a response to the naloxone, continue to monitor respiratory rate, depth, oxygen saturation and end-tidal CO2 (if available) every 15 minutes x 2, then every 30 minutes x 2, then every 1 hour x 1 after each naloxone dose. Consider transfer to ICU if patient respiratory parameters have not improved after 4 naloxone doses. Group 4: ondansetron (ZOFRAN ODT) ODT tab 4 mgJump to med 4 mg, Oral, EVERY 6 HOURS PRN, nausea, vomiting, Starting on Mon01/22/24 at 1632, This is Step 1 of nausea and vomiting management. If nausea not resolved in 15 minutes, go to Step 2 prochlorperazine (COMPAZINE). Do not push through foil backing. Peel back foil and gently remove. Place on tongue immediately. Administration with liquid unnecessary With dry hands, peel back foil backing and gently remove tablet. Do not push oral disintegrating tablet through foil backing. Administer immediately on tongue and oral disintegrating tablet dissolves in seconds, then swallow with saliva. Liquid not required. Or ondansetron (ZOFRAN) injection 4 mgJump to med 4 mg, Intravenous, EVERY 6 HOURS PRN, nausea, vomiting, Administer over 2-5 Minutes, Starting on Mon01/22/24 at 1632, This is Step 1 of nausea and vomiting management. If nausea not resolved in 15 minutes, go to Step 2 prochlorperazine (COMPAZINE). Group 5: oxyCODONE (ROXICODONE) tablet 5 mgJump to med 5 mg, Oral, EVERY 3 HOURS PRN, moderate pain, Starting on Mon01/22/24 at 1632, Hold oral PRN dose for analgesic side effects. Notify provider to assess for uncontrolled pain or analgesic side effects. 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 Or oxyCODONE IR (ROXICODONE) tablet 10 mgJump to med 10 mg, Oral, EVERY 3 HOURS PRN, severe pain, Starting on Mon01/22/24 at 1632, Hold oral PRN dose for analgesic side effects. Notify provider to assess for uncontrolled pain or analgesic side effects. 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 Group 6: prochlorperazine (COMPAZINE) injection 5 mgJump to med 5 mg, Intravenous, EVERY 6 HOURS PRN, nausea, vomiting, Administer over 1-2 Minutes, Starting on Mon01/22/24 at 1632, This is Step 2 of nausea and vomiting management. If nausea not resolved in 15-30 minutes, Notify provider. Or prochlorperazine (COMPAZINE) tablet 5 mgJump to med 5 mg, Oral, EVERY 6 HOURS PRN, nausea, vomiting, Starting on Mon01/22/24 at 1632, This is Step 2 of nausea and vomiting management. If nausea not resolved in 15- 30 minutes, Notify provider. documented in this encounter Care Teams Accounting Advisory Services Manager Relationship Specialty Start Date End Date Argentina Iqbal PA-C [facility] [address] [place] [address] PCP - General Physician Mica Plate Layer 12/19/23 documented as of this encounter
--- OUTSIDE RECORDS SUMMARY | 2024-03-06 10:35 | XMS_ITS | Encounter Summary ---
Author Organization [facility] Address [address] [place] [address]. [place] [address] Care Team Providers Care Equipment Processer Storage Name Role Phone Argentina Iqbal PA-C Primary Care Provider Encounter Details Date Type Department Care Team (Latest Contact Info) Description 01/22/2024 Travel Social History Tobacco Use Types Packs/Day Years Used Date Smoking Tobacco: Never Smokeless Tobacco: Never Alcohol Use Standard Drinks/Week Comments Never 0 [...] Answer Date Recorded Do you have housing? (Rojelio g is defined as stable permanent housing and does not include staying ouside in a car, in a tent, in an abandoned building, in an overnight correction, or couch-surfing.) Yes 01/23/2024 Are you worried [...] on file documented as of this encounter Plan of Treatment Not on file documented as of this encounter Visit Diagnoses Not on filedocumented in this encounter Care Teams Equipment Processer Storage Relationship Specialty Start Date End Date Argentina Iqbal PA-C [facility] [address] [place] [address] PCP - General Physician Reimbursement Analyst 12/19/23 documented as of this encounter
--- OUTSIDE RECORDS SUMMARY | 2024-03-06 10:35 | XMS_ITS | Encounter Summary ---
Author Organization [facility] Address [address] [place] [id number] Care Team Providers Care Detailer Name Role Phone Argentina Iqbal PA-C Primary [...] lumbar intervertebral disc with radiculopathy [M51.16] Procedures W[place] ALLOGRAFT FOR SPINE SURGERY ONLY MORSELIZED WV ALLOGRAFT FOR SPINE SURGERY ONLY STRUCTURAL WV AUTOGRAFT SPINE SURGERY LOCAL FROM SAME INCISION WV AUTOGRAFT SPINE SURGERY MORSELIZED SEP INCISION WV AUTOGRAFT SPINE SURGERY BICORT/TRICORT SEP INCISION WV LUMBAR SPINE FUSN,POST TECH W[place] SPINE FUSN,POST TECH,EA ADDNL SGMT WV LUMBAR SPINE FUSN,POST INTERBODY WV LUMB SP FUSN,POST INTERBDY,EA ADDL WV ARTHRODESIS POST/POSTEROLATRL/POSTINTERBODY LUMBAR WV ARTHRODESIS POST/POSTERLATRL/POSTINTRBDYADL SPC/SEG WV STEREOTACTIC COMP ASSIST PROC,SPINAL Bilateral Lumbar 4 to Sacral 1 Transforaminal Lumbar Interbody Fusion with Navigation [facility] [address] [place] [address] Phone: tel: fax: Referral ID Status Reason Start Date Expiration Date Visits Re quested Visits Authorized [id number] 1 1 Encounter Details Date Type Department Care Team (Late st Contact Info) Description 01/22/2024 7:30 AM CDT - 01/22/2024 12:10 PM CDT Surgery [facility] [address] [place] [id number] Guicho Tobin MD [facility] [address] [place] [address] L4-5 bilateral decompressive laminectomies with medial facetectomies [...] DuraSeal and VistaSeal L4-S1 posterior lateral fusion Surgery Details Date/Time Status Location OR Service Patient Class Case Class Case Type Trauma Case? 01/22/2024 7:30 AM Posted OR OR 09 Neurosurgery Surgery Admit Elective Panel 1 Procedure LRB Anes Op Region Wound Class Comments L4-5 bilateral decompressive laminectomies with medial facetectomies [...] DuraSeal and VistaSeal L4-S1 posterior lateral fusion Bilateral General Spine I-Clean Surgeon Surgeon Role Service Panel Guicho Tobin MD Primary Neurosurger y 1 documented in this encounter Social History Tobacco Use Types Packs/Day Years [...] Date Recorded Do you have housing? (Rojelio olguin is defined as stable permanent housing and does not include staying ouside in a car, in a tent, in an abandoned building, in an overnight long term, or couch-surfing.) Yes 01/23/2024 Are you worried [...] Sign Reading Time Taken Comments Blood Pressure 140/81 01/22/2024 12:10 PM CDT Pulse 79 01/22/2024 12:10 PM CDT Temperature 35.9 C (96.7 F) 01/22/2024 12:07 PM CDT Respiratory Rate 14 01/22/2024 12:10 PM CDT Oxygen Saturation 100% 01/22/2024 12:10 PM CDT Inhaled Oxygen Concentration - - Weight 98.4 kg (217 lb) 01/22/2024 5:51 AM CDT Height 172.7 cm (5' 8) 01/22/2024 5:51 AM CDT Body Mass Index 31.78 01/22/2024 5:51 AM CDT documented in this encounter Discharge Summaries * Guicho Tobin MD - 01/25/2024 5:19 AM CDT [facility] Discharge Summary Domingo Willoughby Age: [age] year old Date of : 1955 Date of Admission: 01/22/2024 Date of Discharge:: 01/25/2024 Admitting Physician: Guicho Tobin MD Discharge Physician: Guicho Tobin MD Home clinic: [facility] Admission Diagnoses: Radiculopathy, lumbosacral region [M54.17] [...] L5 and S1 nerve roots Placement of [facility] Spine Invictus pedicle screws bilaterally from L4-S1 [...] L5 and S1 nerve roots Placement of [facility] Spine Invictus pedicle screws bilaterally from L4-S1 [...] Neurosurgery follow up appointment with either Hawa Ocoha CNP and Dr. Guicho Tobin at [facility] by calling the Spine Line at [phone] or [phone] for [facility] general number in 4-6 weeks. If sutures or debbie were placed, please schedule an appointment for wound check and staple/sutureremoval in 10-14 days by calling the Spine Line at [phone] or by calling the general [facility] line at [phone]. Discharge Disposition: Discharged to home Attestation: I [...] other recreational vehicles Call my office at [facility] [phone] or [phone] for increasing redness, swelling or pus draining from the incision, increased pain or any other questions and concerns. Discharge follow up: Schedule Neurosurgery follow up appointment with either Allison Roach CNP and Dr. Guicho Tobin at [facility] by calling The Spine Line at in 4-6 weeks. Please schedule an appointment for wound check and staple/suture removal in 10- 14 days by calling [phone] for the [facility] Spine Line. * Henry Michael OT - 01/25/2024 8:56 AM CDT Occupational Therapy Discharge Summary Reason for therapy discharge: All goals and outcomes met, no further needs identified. Progress towards therapy goal(s). See goals on Care Plan in [facility] electronic health record for goal details. Goals met Therapy recommendation(s): No further therapy is recommended. * Chilo Garcia MD - 01/24/2024 1:00 PM CDT [facility] Medicine Progress Note - Hospitalist Service Date [...] -He has declined Botox Hypertension history -Continue TUNNEL KILN FIRER losartan Hyperlipidemia -Continue TUNNEL KILN FIRER Crestor Diet: Advance Diet as Tolerated: Regular [...] Anticipated Tomorrow Chilo Garcia MD Hospitalist Service [facility] Securely message with Soo[employer] (more info) Text page via [facility] [employer] Paging/Directory Interval History No new problems. Feeling [...] MR BRAIN W/O and W CONTRAST LOCATION: [facility] DATE: 01/24/2024 INDICATION: slurred speech after [...] 0.83 ANIONGAP -- -- 13 -- 13 RENA -- -- 8.5* -- 9.2 GLC 126* [...] Info Signing Clinician's Name / Credentials (OT) BLANCO Hutchins/Emely Weapons Specialist Weapons Specialist Present yes Language British Living Environment Living Environment Comments Pt reports [...] Goal Statement (OT) to return home at md Additional Occupational Profile Info/Pertinent History of Current [...] sit<>stand Shower Transfer Type (Shower Transfer) lateral [place] Level (Shower Transfer) verbal cues;contact guard Assistive Device (Shower Transfer) grab bar, tub rail Toilet Transfer Type (Toilet Transfer) stand-sit [place] Level (Toilet Transfer) contact guard Toilet Transfer Comments elevated toilet Balance Balance Comments LOB was not noted, general unsteadiness to be expected Activities of Daily Living BADL Assessment/Intervention lower body dressing;upper body dressing Upper Body Dressing Assessment/Training [place] Level (Upper Body Dressing) minimum assist (75% patient effort) Lower Body Dressing Assessment/Training [place] Level (Lower Body Dressing) maximum assist (25% [...] Evaluation Time OT Eval, Low Complexity Minutes (94937) 8 OT Goals Therapy Frequency (OT) Daily [...] family to A as needed with IADL's; well point pumping supervisor, driving, errands, cooking and bathing. OT Brief overview of current status min A for bed mobility, SBA, fww functional mobility and walk in shower Total Session Time Total Session Time (sum of timed and untimed services) 8 * Allison Roach NP - 01/24/2024 7:45 AM CDT [facility] Neurosurgery Progress Note Post OP Day [...] no BM.Tolerating a regular diet. Dressing CDI. JENNY output 155 and 120. Pain controlled with [...] 102 01/22/2024 Lab Results Component Value Date RENA 8.5 01/22/2024 Lab Results Component Value Date [...] of brain. 4. Discharge on Allison Roach SHIPBUILDING DRAFTSPERSON-C [facility] [phone] (office) [phone] (safety coordinator) * Guicho Tobin MD - 01/23/2024 [...] hours post op Call my office at [facility] [phone] or [phone] for increasing redness, swelling or pus draining from the incision, increased pain or any other questions and concerns. * Chilo Garcia MD - 01/23/2024 4:21 PM CDT [facility] Medicine Progress Note - Hospitalist Service Date [...] -He has declined Botox Hypertension history -Continue TUNNEL KILN FIRER losartan Hyperlipidemia -Continue TUNNEL KILN FIRER Crestor Diet: Advance Diet as Tolerated: Regular [...] 2-4 Days Chilo Garcia MD Hospitalist Service [facility] Securely message with So[employer]ini (more info) Text page via [facility] Paging/Directory Interval History No new problems. Speech [...] -- 0.83 ANIONGAP -- 13 -- 13 RENA -- 8.5* -- 9.2 GLC 114* 144* [...] [facility] DPT Rehab Comments (PT) spinal prec Weapons Specialist Weapons Specialist Present (son interpreting) Language wolof Living Environment Living Environment Comments Pt reports [...] Evaluation Time PT Eval, Low Complexity Minutes (75676) 10 Physical Therapy Goals PT Frequency Daily [...] dynamic activities to improve functional performance Minutes (04416) 9 Symptoms Noted During/After Treatment Increased pain [...] with CGA/SBA, VC for UE placement. Walker oswaldo modified for improved posturing. Pt in chair at departure, ice applied low back with brace on. Alarm on. Gait Training Gait Training Minutes (77256) 12 Symptoms Noted During/After Treatment (Gait Training) [...] Mr. Willoughby in PACU and introduced myself. [employer] was present. Mr. Willoughby affirmed that he is Adventist and welcomed prayer. He denied having further needs. Plan: Informed pt and his family how they can request further store standards associate support. This author and other chaplains remain available per pt/family request. Yaya Lacey M.Div., [facility] Staff Keyboard Operator [employer]S available 31/10 for emergent requests/referrals, either by paging the on-call store standards associate or by entering an QIANA/STAT consult in [email or web address], which will also page the on-call store standards associate. * Farooq Liu MD - 01/22/2024 1:20 [...] kg/m?? PSYCH: pleasant, oriented, No acute distress. British interpretor at bedside assisting with communication HEART: Normal S1, S2 with no edema. LUNGS: Clear to auscultation, normal Respiratory effort. ABDOMEN: Soft, no hepatosplenomegaly, normal bowel sounds. SKIN: Dry to touch, No rash. Neurologic: Intermittent right facial spasm. Follows commands. Normal strength of dorsi and plantarflexion. Normal public service officer strength. Tongue midline. Pupils equal round and [...] STATUS: FULL CODE * Livia Black APRN SOLAR PROJECT MANAGER - 01/22/2024 12:41 PM CDT [facility] Stroke Telephone Note I was called by [...] examine the patient at this time. Livia Blakc APRN SOLAR PROJECT MANAGER Vascular Neurology To page me or covering stroke neurology retail team member, click here: AMCOM Choose Carton Forming Machine Tender tab at top, then select NEUROLOGY/ALL SITES [...] RN - 01/22/2024 3:22 PM CDT When typewriter assembly and parts inspector assumed care for the patient in the holding hallway, the patient endorsed new numbness and tingling in his hands bilaterally. Pt has been on bedrest, so typewriter assembly and parts inspector elevated and repositioned upper extremities on pillows. [...] Fall Risk Recent Flowsheet Documentation Taken 01/25/2024 0900 by Angelina Orantes RN Safety Promotion/Fall Prevention: lighting adjusted mobility aid in reach nonskid shoes/slippers when out of bed safety round/check completed Intervention: Prevent Skin Injury Recent Flowsheet Documentation Taken 01/25/2024899 by Angelina Orantes RN Body Position: supine, head elevated Intervention: Prevent Infection Recent Flowsheet Documentation Taken 01/25/2024899 by Angelina Orantes RN Infection Prevention: hand hygiene promoted rest/sleep promoted single patient room provided Goal: Optimal Comfort and Wellbeing Intervention: Monitor Pain and Promote Comfort Recent Flowsheet Documentation Taken 01/25/2024 100 by Angelina Orantes RN Pain Management Interventions: medication (see JUN) Taken 01/25/2024899 by Angelina Orantes RN Pain Management Interventions: medication (see JUN) Problem: Spinal Surgery Goal: Optimal Functional Ability Intervention: Optimize Functional Status Recent Flowsheet Documentation Taken 01/25/2024899 by Angelina Orantes RN Activity Management: activity adjusted per tolerance Goal: Absence of Infection Signs and Symptoms Intervention: Prevent or Manage Infection Recent Flowsheet Documentation Taken 01/25/2024899 by Angelina Orantes RN Infection Prevention: hand [...] Orantes RN Pain Management Interventions: medication (see JUN) Goal: Effective Oxygenation and Ventilation Intervention: Optimize Oxygenation and Ventilation Recent Flowsheet Documentation Taken 01/25/2024899 by Angelina Orantes RN Head of Bed (HOB) Positioning: HOB at 20 degrees Problem: Skin Injury Risk Increased Goal: Skin Health and Integrity Intervention: Plan: Nurse Driven Intervention: Moisture Management Recent Flowsheet Documentation Taken 01/25/2024 09 by Angelina Orantes RN Moisture Interventions: Encourage regular toileting Intervention: Plan: Nurse Driven Intervention: Friction and Shear Recent Flowsheet Documentation Taken 01/25/2024 09 by Angelina Orantes RN Friction/Shear Interventions: HOB 30 degrees or less Intervention: Optimize Skin Protection Recent Flowsheet Documentation Taken 01/25/2024 09 by Angelina Orantes RN Activity Management: activity adjusted per tolerance Head of Bed (HOB) Positioning: HOB at 20 degrees * Plan of Care - Kusum Wood PT - 01/25/2024 10:06 AM CDT Physical Therapy Discharge Summary Reason for therapy discharge: Discharged to home with assist from and son for ADLs/IADLs and amb on stairs. Progress towards therapy goal(s). See goals on Care Plan in [facility] electronic health record for goal details. [...] Recent Flowsheet Documentation Taken 01/24/2024 1600 by nAn Chapa RN Infection Prevention: hand hygiene promoted [...] Functional Status Recent Flowsheet Documentation Taken 01/24/2024 110 by [...] Moisture Management Recent Flowsheet Documentation Taken 01/24/2024 1106 by Angelina Orantes RN Moisture Interventions: Encourage regular toileting Intervention: Plan: Nurse Driven Intervention: Friction and Shear Recent Flowsheet Documentation Taken 01/24/2024 1106 by Angelina Orantes RN Friction/Shear Interventions: HOB 30 degrees or less Intervention: Optimize Skin Protection Recent Flowsheet Documentation Taken 01/24/2024 1106 by [...] Promote Comfort Recent Flowsheet Documentation Taken 01/24/2024 0311 by Bg Leger RN Pain Management Interventions: [...] HOB at 20-30 degrees * Plan of Leanne - Stefani Norris RN - 01/23/2024 6:39 [...] wake me up as it startles me. 01/23/20241837 by Stefani Norris RN Outcome: Progressing 01/23/20241828 by Stefani Norris RN Outcome: Progressing Goal: Absence of Hospital-Acquired Illness or Injury 01/23/20241837 by Stefani Norris RN Outcome: Progressing 01/23/20241828 by Stefani Norris RN Outcome: Progressing Intervention: Identify and Manage Fall Risk Recent Flowsheet Documentation Taken 01/23/20241746 by Stefani Norris RN Safety Promotion/Fall Prevention: activity supervised assistive device/personal items within reach clutter free environment maintained increased rounding and observation increase visualization of patient lighting adjusted nonskid shoes/slippers when out of bed patient and family education room organization consistent safety round/check completed supervised activity Intervention: Prevent Skin Injury Recent Flowsheet Documentation Taken 01/23/2024 1747 by Stefani Norris RN Body Position: supine, head elevated Goal: Optimal Comfort and Wellbeing 01/23/2024 1838 by Stefani Norris RN Outcome: Progressing 01/23/2024 1829 by Stefain Norris RN Outcome: Progressing Intervention: Monitor Pain and Promote Comfort Recent Flowsheet Documentation Taken 01/23/2024 1737 by Stefani Norris RN Pain Management Interventions: medication (see MAR) Goal: Readiness for Transition of Care 01/23/2024 1838 by Stefani Norris RN Outcome: Progressing 01/23/2024 1829 by Stefani Norris RN Outcome: Progressing Problem: Spinal Surgery Goal: Optimal Coping with Surgery 01/23/2024 1838 by Stefani Norris RN Outcome: Progressing 01/23/2024 1829 by Stefani Norris RN Outcome: Progressing Goal: Absence of Bleeding 01/23/2024 1838 by Stefani Norris RN Outcome: Progressing 01/23/2024 1829 by Stefani Norris RN Outcome: Progressing Intervention: Monitor and [...] Outcome: Progressing Goal: Optimal Functional Ability 01/23/2024 1838 by Stefani Norris RN Outcome: Progressing 01/23/2024 1829 by Stefani Norris RN Outcome: Progressing Intervention: Optimize Functional Status Recent Flowsheet Documentation Taken 01/23/2024 1747 by Stefani Norris RN Activity Management: activity adjusted per tolerance activity encouraged Goal: Absence of Infection Signs and Symptoms 01/23/2024 183 by Stefani Norris RN Outcome: Progressing 01/23/2024 182 by Stefani Norris RN Outcome: Progressing Goal: Optimal Neurologic Function 01/23/2024 183 by Stefani Norris RN Outcome: Progressing 01/23/2024 182 by Stefani Norris RN Outcome: Progressing Intervention: Optimize Neurologic Function Recent Flowsheet Documentation Taken 01/23/2024 1747 by Stefani Norris RN Body Position: supine, head elevated Goal: Anesthesia/Sedation Recovery 01/23/2024 183 by Stefani Norris RN Outcome: Progressing 01/23/2024 182 by Stefani Norris RN Outcome: Progressing Intervention: Optimize Anesthesia Recovery Recent Flowsheet Documentation Taken 01/23/2024 174 by Stefani Norris RN Safety Promotion/Fall Prevention: activity supervised assistive device/personal items within reach clutter free environment maintained increased rounding and observation increase visualization of patient lighting adjusted nonskid shoes/slippers when out of bed patient and family education room organization consistent safety round/check completed supervised activity Goal: Optimal Pain Control and Function 01/23/2024 183 by Stefani Norris RN Outcome: Progressing 01/23/2024 182 by Stefani Norris RN Outcome: Progressing Intervention: Prevent or Manage Pain Recent Flowsheet Documentation Taken 01/23/2024 1737 by Stefani Norris RN Pain Management Interventions: medication (see MAR) Goal: Nausea and Vomiting Relief 01/23/2024 183 by Stefani Norris RN Outcome: Progressing 01/23/2024 182 by Stefani Norris RN Outcome: Progressing Goal: Effective Urinary Elimination 01/23/2024 183 by Stefani Norris RN Outcome: Progressing 01/23/20241828 by Stefani Norris RN Outcome: Progressing Goal: Effective Oxygenation and Ventilation 01/23/20241837 by Stefani Norris RN Outcome: Progressing 01/23/20241828 by Stefani Norris RN Outcome: Progressing Intervention: Optimize Oxygenation and Ventilation Recent Flowsheet Documentation Taken 01/23/20241746 by Stefani Norris RN Head of Bed (HOB) Positioning: HOB at 20 degrees Problem: Skin Injury Risk Increased Goal: Skin Health and Integrity 01/23/20241837 by Stefani Norris RN Outcome: Progressing 01/23/20241828 by Stefani Norris RN Outcome: Progressing Intervention: Plan: Nurse Driven Intervention: Moisture Management Recent Flowsheet Documentation Taken 01/23/20241746 by Stefani Norris RN Moisture Interventions: Encourage regular toileting Intervention: Plan: Nurse Driven Intervention: Friction and Shear Recent Flowsheet Documentation Taken 01/23/20241746 by Stefani Norris RN Friction/Shear Interventions: HOB [...] Manage Fall Risk Recent Flowsheet Documentation Taken 01/23/2024239 by Bg [...] Optimize Skin Protection Recent Flowsheet Documentation Taken 01/23/2024239 by Bg [...] Taken 01/22/2024 1648 by Ketty Chowdary, RN Safety Promotion/Fall Prevention: activity supervised assistive device/personal items within reach clutter free environment maintained increased rounding and observation increase visualization of patient lighting adjusted nonskid shoes/slippers when out of bed patient and family education room organization consistent safety round/check completed supervised activity Intervention: Prevent Skin Injury Recent Flowsheet Documentation Taken 01/22/2024 1648 by Ketty Chowdary, RN Body Position: supine Intervention: Prevent Infection Recent Flowsheet Documentation Taken 01/22/2024 1648 by Ketty Chowdary RN Infection Prevention: hand hygiene promoted rest/sleep [...] is not responding verbally, appears confused, per sap bi architect patient is not answering some orientation questions appropriately/correctly. Patient is slurring words and slow to respond, this was not the case earlier per sap bi architect who helped pre-op patient. Orders Received: Call [...] microscope SURGEON: Guicho Tobin MD, MS, FAANS SCREEN TENDER: ST Farhad whose assistance was required throughout [...] was transported to the operating room on [facility] and received general endotracheal anesthesia and a [...] placed using the normal technique of a sdv pilot/navigator/dds operator hole with the Midas Abdulkadir drill, the [...] [facility], and sent to recovery. 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 which was repaired as described above Estimated blood loss: 150 ml IV fluids: See Anesthesia The patient received Ancef preoperatively and Vancomycin powder in the wound * Pharmacy-Admission Medication History - Jo Ann Vazquez Amador - 01/17/2024 1:32 PM CDT Admission Medication History Nurse Cookie Madrigal RN MonDec 29, 2023 1:13 PM TUNNEL KILN FIRER Med List Medication Sig Last Dose losartan [...] CDT 01/24/2024 6:52 AM CDT us Guicho [facility] POCT nal Result LABORATORY [facility] [address] [facility] Lab (1st floor, no room number) [place] [address], [facility] * MR Brain w/o & w [...] MR BRAIN W/O and W CONTRAST LOCATION: [facility] DATE: 01/24/2024 INDICATION: slurred speech after [...] MR BRAIN W/O and W CONTRAST LOCATION: [facility] DATE: 01/24/2024 INDICATION: slurred speech after [...] and presumed microvascular ischemic changesas detailed above. Chilo Garcia MD IMG MRI ORDERABLES Final Res ult * (ABNORMAL) Glucose by meter (01/23/2024 6:00 AM CDT) [facility] GLUCOSE BY METER POCT 114(H) 70 - 99 mg/dL 01/23/2024 6:07 AM CDT LABORATORY POC Blood, Capillary BLOOD SPECIMEN / Unknown 01/23/2024 6:00 AM CDT 01/23/2024 6:07 AM CDT Guicho Tobin MD LAB - [facility] POCT Fi nal Result LABORATORY [facility] [address] Lab (1st floor, no room number) [place] [address], [facility] * CT Head Perfusion w Contrast (01/22/2024 [...] or infarct. ANASTACIO JOYCE MD SYSTEM ID: [id number] Narrative 01/22/2024 1:57 PM CDT EXAM: CTA [...] the vertex were obtained without intravenous contrast. Phlebotomy Tech (topogram) image(s) also obtained and reviewed. HEAD and NECK CTA: During rapid bolus intravenous injection of nonionic contrast material, axial images were obtained using thin collimation multidetector helical technique from the base of the upper aortic arch through the [place] of [place]. This CT angiogram data was [...] reconstructed, and reviewed. CONTRAST: 67mL Isovue-370 (accession [id number]), [id number] (accession [id number]) FINDINGS: Head CT demonstrates no intracranial hemorrhage, [...] levels. Procedure Note Anastacio Joyce MD - 10/14/2024 EXAM: CTA HEAD NECK W CONTRAST, CT HEAD PERFUSION W CONTRAST, CT HEAD W/O CONTRAST 01/22/2024 1:04 PM HISTORY: Code Stroke to evaluate for potential thrombolysis and thrombectomy. PLEASE READ IMMEDIATELY. COMPARISON: No prior similar studies TECHNIQUE: HEAD CT:Using multidetector thin collimation helical acquisition technique, axial, coronal and sagittal CT images from the skull base to the vertex were obtained without intravenous contrast. Phlebotomy Tech (topogram) image(s) also obtained and reviewed. HEAD and NECK CTA: During rapid bolus intravenous injection of nonionic contrast material, axial images were obtained using thin collimation multidetector helical technique from the base of the upper aortic arch through the [place] of [place]. This CT angiogram data was [...] reconstructed, and reviewed. CONTRAST: 67mL Isovue-370 (accession [id number]), 117Isovue-370 (accession [id number]) FINDINGS: Head CT demonstrates no intracranial hemorrhage, [...] or infarct. ANASTACIO JOYCE MD SYSTEM ID: [id number] Dalia Alexander MD IM CT ORDERABLES Final Result * CTA Head [...] or infarct. ANASTACIO JOYCE MD SYSTEM ID: [id number] Narrative 01/22/2024 1:57 PM CDT EXAM: CTA [...] the vertex were obtained without intravenous contrast. Phlebotomy Tech (topogram) image(s) also obtained and reviewed. HEAD and NECK CTA: During rapid bolus intravenous injection of nonionic contrast material, axial images were obtained using thin collimation multidetector helical technique from the base of the upper aortic arch through the [place] of [place]. This CT angiogram data was [...] reconstructed, and reviewed. CONTRAST: 67mL Isovue-370 (accession [id number]), 117Isovue-370 (accession [id number]) FINDINGS: Head CT demonstrates no intracranial hemorrhage, [...] the vertex were obtained without intravenous contrast. Phlebotomy Tech (topogram) image(s) also obtained and reviewed. HEAD and NECK CTA: During rapid bolus intravenous injection of nonionic contrast material, axial images were obtained using thin collimation multidetector helical technique from the base of the upper aortic arch through the [place] of [place]. This CT angiogram data was [...] reconstructed, and reviewed. CONTRAST: 67mL Isovue-370 (accession [id number]), 117Isovue-370 (accession [id number]) FINDINGS: Head CT demonstrates no intracranial hemorrhage, [...] or infarct. ANASTACIO JOYCE MD SYSTEM ID: [id number] Dalia Alexander MD [facility] [place] ORDERABLES Final Result * CT Head [...] or infarct. ANASTACIO JOYCE MD SYSTEM ID: [id number] Narrative 01/22/2024 1:57 PM CDT EXAM: CTA [...] the vertex were obtained without intravenous contrast. Phlebotomy Tech (topogram) image(s) also obtained and reviewed. HEAD and NECK CTA: During rapid bolus intravenous injection of nonionic contrast material, axial images were obtained using thin collimation multidetector helical technique from the base of the upper aortic arch through the [place] of [place]. This CT angiogram data was [...] reconstructed, and reviewed. CONTRAST: 67mL Isovue-370 (accession [id number]), 117Isovue-370 (accession [id number]) FINDINGS: Head CT demonstrates no intracranial hemorrhage, [...] the vertex were obtained without intravenous contrast. Phlebotomy Tech (topogram) image(s) also obtained and reviewed. HEAD and NECK CTA: During rapid bolus intravenous injection of nonionic contrast material, axial images were obtained using thin collimation multidetector helical technique from the base of the upper aortic arch through the [place] of [place]. This CT angiogram data was [...] reconstructed, and reviewed. CONTRAST: 67mL Isovue-370 (accession [id number]), 117Isovue-370 (accession [id number]) FINDINGS: Head CT demonstrates no intracranial hemorrhage, [...] or infarct. ANASTACIO JOYCE MD SYSTEM ID: [id number] us Dalia Alexander MD IMG CT ORDERABLES Final Result * Ammonia (01/22/2024 12:51 PM CDT) Ammonia 28 16 - 60 umol/L 01/22/2024 1:50 PM CDT [facility] LAB[facility]AT[facility] Blood STRUCTURE OF RIGHT UPPER LIMB / Unknown Venipuncture / Unknown 01/22/2024 12:51 PM CDT 01/22/2024 12:54 PM CDT us Farooq Liu MD LAB - BLOOD ORDERABLES Fi nal Result LABORATORY [facility] [address] Lab (1st floor, no room number) [place] [address] * (ABNORMAL) Comprehensive metabolic panel (01/22/2024 [...] 1:36 PM CDT [facility] Comment:eGFR calculated us2020 CKD-EPI equation. Calcium 8.5(L) 8.8 - 10.4 [...] - BLOOD ORDERABLES Fi nal Result LABORATORY [facility] [address] Lab (1st floor, no room number) [place] [address], [facility] * Troponin T, High Sensitivity (01/22/2024 12:51 PM CDT) [facility] Troponin T, High Sensitivity <6 <=22 ng/L 01/22/2024 1:33 PM CDT [facility] LAB[facility]ATORY Comment: Either a High Sensitivity Troponin [...] LAB - BLOOD ORDERABLES Final R esult [facility] [address] Lab (1st floor, no room number) [place] [phone] [place] [address] * (ABNORMAL) INR (01/22/2024 12:51 PM CDT) INR 1.17(H) 0.85 - 1.15 01/22/2024 1:11 PM CDT LABORATORY Blood STRUCTURE OF RIGHT UPPER LIMB / Unknown Venipuncture / Unknown 01/22/2024 12:51 PM CDT 01/22/2024 12:54 PM CDT Dalia Alexander MD LAB - BLOOD ORDERABLES Final R esult [facility] [address] Lab (1st floor, no room number) [place] [phone] * Partial thromboplastin time (01/22/2024 12:51 PM CDT) aPTT 31 22 - 38 Seconds 01/22/2024 1:11 PM CDT LABORATORY Blood STRUCTURE OF RIGHT UPPER LIMB / Unknown Venipuncture / Unknown 01/22/2024 12:51 PM CDT 01/22/2024 12:54 PM CDT us Dalia Alexander MD LAB - BLOOD ORDERABLES Final R esult LABORATORY [facility] [address] Lab (1st floor, no room number) [place] [address], [facility] * CBC with platelets (01/22/2024 12:51 PM CDT) [facility] WBC Count 7.6 4.0 - 11.0 10e3/uL [...] BLOOD ORDERABLES Final R esult LABORATORY [facility] [address] Lab (1st floor, no room number) [place] [address], [facility] * (ABNORMAL) Glucose by meter (01/22/2024 12:45 PM CDT) GLUCOSE BY METER POCT 145(H) 70 - 99 mg/dL 01/22/2024 12:52 PM CDT LABORATORY POC Blood, Capillary BLOOD SPECIMEN / Unknown 01/22/2024 12:45 PM CDT 01/22/2024 12:52 PM CDT Guicho Tobin MD LAB - BEAKER POCT Fi nal Result LABORATORY POC [facility] [address] Lab (1st floor, no room number) [place] [address] * XR Surgery ADELITA L/T 5 Min Fluoro w Stills (01/22/2024 11:20 AM CDT) Narrative RADIANT - 01/22/2024 11:21 AM CDT This exam was marked as non-reportable because it will not be read by a radiologist or a [place] non-radiologist provider. Guicho Tobin MD [facility] [place] [place]I NG ORDERABLES Final Result Performing Organization Address [facility] de Phone Number RADIANT * XR Surgery [...] spot images obtained. CLAIRE CRUZ MD Guicho [facility]ALLERO DIAGNOSTIC IMAGI NG ORDERABLES Final Result * Adult Type and Screen (01/22/2024 7:16 AM CDT) ABO/RH(D) O POS 01/22/2024 6:49 AM CDT [facility] BLOOD BANK Antibody Screen Negative Negative 01/22/2024 6:49 AM CDT RH BLOOD BANK SPECIMEN EXPIRATION DATE [id number] 01/22/2024 6:49 AM CDT RH BLOOD BANK Blood STRUCTURE OF RIGHT UPPER LIMB / Unknown Venipuncture / Unknown 01/22/2024 7:16 AM CDT 01/22/2024 7:22 AM CDT Dalia Alexander MD LAB - BLOOD BANK TEST ORDER Fi nal Result [facility] BLOOD BANK [address] [place] [address], [facility] * (ABNORMAL) Basic metabolic panel (01/22/2024 [...] - 99 mg/dL 01/22/2024 7:44 AM CDT [facility] LABORATORY Blood STRUCTURE OF RIGHT UPPER LIMB / Unknown Venipuncture / Unknown 01/22/2024 7:16 AM CDT 01/22/2024 7:22 AM CDT us Dalia Alexander MD LAB - BLOOD ORDERABLES Final R esult [facility] LABORATORY [facility] [address] Lab (1st floor, no room number) [place] [address] * (ABNORMAL) CBC with platelets (01/22/2024 [...] R esult LABORATORY [facility] [address] Lab (1st floor, no room number) [place] [address], [facility] * Glucose by meter (01/22/2024 5:46 AM CDT) [facility] GLUCOSE BY METER POCT 99 70 - 99 mg/dL 01/22/2024 5:53 AM CDT LABORATORY POC Blood, venous BLOOD SPECIMEN / Unknown 01/22/2024 5:46 AM CDT 01/22/2024 5:53 AM CDT Guicho Tobin MD LAB - BEAKER POCT Fi nal Result Performing Organization Address City/[facility]/ZIP Co de Phone Number LABORATORY POC [facility] [address] Lab (1st floor, no room number) [place] [address], [facility] * EKG Cardiac - HIM Scan (10/24/2023 12:00 AM CDT) 10/24/2023 us Provider Outside ECG ORDERABLES Final Result documented in this encounter Visit Diagnoses Diagnosis S/P lumbar fusion- Primary Arthrodesis status Radiculopathy, lumbosacral region Thoracic or lumbosacral neuritis or radiculitis, unspecified Spinal stenosis, lumbar region with neurogenic claudication 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, lumbar region documented in this encounter Administered Medications Inactive Administered Medications - up to 3 most recent administrations Medication Order MAR Action Action Date Dose Rate Site benzocaine-menthol (CHLORASEPTIC) 6-10 MG lozenge 1 lozenge 1 lozenge, Buccal, EVERY 1 HOUR PRN, sore throat, Starting on Mon01/24/24 at 1838 $Given 01/24/2024 7:13 PM CDT 1 lozenge BUPivacaine 0.5% - EPINEPHrine 1:200,000 (PF) injection PRN, Starting on Mon01/22/24 at 0932, Intra-procedure $Given 01/22/2024 9:32 AM CDT 30 mLs Operative Site/Surgical Site ceFAZolin (ANCEF) 2 g in 100 mL D5W intermittent infusion Routine, 2 g, Intravenous, EVERY 8 HOURS, First dose on Mon01/22/24 at 1700, First post-op dose due 8 hours after intra-op dose, see eMAR. Discontinue when JENNY drains removed , Indications: Perioperative PharmacoprophylaxisIndicat ions:Perioperative Pharmacoprophylaxis $New Bag 01/25/2024 2:29 AM CDT 2 g 200 mL/hr $New Bag 01/24/2024 6:33 PM CDT 2 g 200 mL/hr $New Bag 01/24/2024 10:03 AM CDT 2 g 200 mL/hr ceFAZolin 2000 mg, gentamicin 240 mg in 0.9% NaCl 2000 mL irrigation Irrigation, ONCE, On Mon01/22/24 at 0400, For 1 dose, Intra-procedure $Given 01/22/2024 11:33 AM CDT 2,000 mLs Operative Site/Surgical Site diphenhydrAMINE (BENADRYL) elixir 12.5 mg 12.5 mg, Oral, EVERY 6 HOURS PRN, itching, Starting on Mon01/22/24 at 1632, Caution to be used when administering multiple RAIL GRINDER depressing meds within a short time frame. diphenhydrAMINE (BENADRYL) injection 12.5 mg 12.5 mg, Intravenous, EVERY 6 HOURS PRN, itching, Only give if patient unable to take PO., Starting on Mon01/22/24 at 1632, Caution to be used when administering multiple RAIL GRINDER depressing meds within a short time frame. guaiFENesin-dextromethorphan (ROBITUSSIN DM) 100-10 MG/5ML syrup 10 [...] (or codeine + guaifenesin). $Given 01/25/2024 10:24 AM CDT 10 mLs HYDROmorphone (DILAUDID) injection 0.2 [...] for uncontrolled pain or analgesic side effects. losartan (COZAAR) tablet 25 mg 25 mg, [...] analgesic side effects. Hold while on IV MAJOR GIFTS MANAGER or with regular IV opioid dosing. $Given [...] analgesic side effects. Hold while on IV MAJOR GIFTS MANAGER or with regular IV opioid dosing. polyethylene [...] 4:49 PM CDT 3 mLs sodium chloride 0.9% (bottle) irrigation PRN, Starting on Mon01/22/24 at 1105, Intra-procedure $Given 01/22/2024 11:05 AM CDT 1,000 mLs Operative Site/Surgi rena Site thrombin 5000 units vial PRN, Starting on Mon01/22/24 at 0932, Intra-procedure $Given 01/22/2024 9:32 AM CDT 15,000 Units Operative Site/Surgi rena Site vancomycin (VANCOCIN) topical powder PRN, Starting on Mon01/22/24 at 1105, Intra-procedure $Given 01/22/2024 11:05 AM CDT 1 g Operative Site/Surgi rena Site documented in this encounter Active and Recently [...] Chapa RN) 0229 ($Given - Provider: Renae Cotton, KRISTI)1001 ($Given - Provider: Angelina Orantes, KRISTI) ceFAZolin (ANCEF) 2 g in 100 mL [...] Leger RN)1003 ($New Bag - Provider: Angelina Orantes RN)1833 ($New Bag - Provider: Ann Chapa RN) 0229 ($New Bag - Provider: Renae Cotton, KRISTI)1049 (Not Given - Provider: Angelina Orantes RN [...] 0802 ($Given - Provider: Angelina Orantes RN) polyethylene glycol (MIRALAX) Packet 17 g 17 [...] Orantes RN) 0821 ($Given - Provider: Angelina Oranets RN) 0804 ($Given - Provider: Angelina Oratnes RN) rosuvastatin (CRESTOR) tablet 40 mg 40 [...] stools. 0905 ($Given - Provider: Angelina Orantes RN)2033 ($Given - Provider: Bg Leger RN) 0819 ($Given - Provider: Angelina Orantes RN)191 ($Given - Provider: Ann Chapa RN) 0803 ($Given - Provider: Angelina Orantes RN) sodium chloride (PF) 0.9% PF flush 3 mL 3 mL, Intracatheter, EVERY 8 HOURS, First dose on Mon01/22/24 at 1700, to lock peripheral IV dormant line 0231 (Not Given - Provider: Bg Leger RN - Reason: IV Infusing)1052 ($Given - Provider: Angelina Orantes, KRISTI)1741 ($Given - Provider: Stefani Norris, KRISTI) 0056 (Canceled Entry - Provider: Bg Leger RN - Comment: gave with abx)0821 ($Given - Provider: Angelina Orantes, KRISTI)1649 ($Given - Provider: Ann Chapa RN) 0235 ($Given - Provider: Renae Cotton, KRISTI)0805 ($Given - Provider: Angelina Orantes RN) PRN [...] Caution to be used when administering multiple RAIL GRINDER depressing meds within a short time frame. diphenhydrAMINE (BENADRYL) injection 12.5 mg(Linked Group 1) 12.5 mg, Intravenous, EVERY 6 HOURS PRN, itching, Only give if patient unable to take PO., Starting on Mon01/22/24 at 1632, Caution to be used when administering multiple RAIL GRINDER depressing meds within a short time frame. [...] at 1632 1431 ($Given - Provider: Angelina Orantes RN)2034 ($Given [...] analgesic side effects. Hold while on IV MAJOR GIFTS MANAGER or with regular IV opioid dosing. 1646 ($Given - Provider: Ann Chapa RN)2343 ($Given - Provider: Renae Cotton RN) 0523 ($Given - Provider: Renae Cotton RN)1001 ($Given - Provider: Angelina Orantes, KRISTI) oxyCODONE IR (ROXICODONE) tablet 10 mg(Linked Group 5) 10 mg, Oral, EVERY 3 HOURS PRN, severe pain, Starting on Mon01/22/24 at 1632, Hold oral PRN dose for analgesic side effects. Notify provider to assess for uncontrolled pain or analgesic side effects. Hold while on IV MAJOR GIFTS MANAGER or with regular IV opioid dosing. 1646 (See Alternative - Provider: Ann Chapa RN)2343 (See Alternative - Provider: Renae Cotton RN) 0523 (See Alternative - Provider: Renae Cotton RN)1001 (See Alternative - Provider: Angelina Orantes, [...] Caution to be used when administering multiple RAIL GRINDER depressing meds within a short time frame. Or diphenhydrAMINE (BENADRYL) injection 12.5 mgJump to med 12.5 mg, Intravenous, EVERY 6 HOURS PRN, itching, Only give if patient unable to take PO., Starting on Mon01/22/24 at 1632, Caution to be used when administering multiple RAIL GRINDER depressing meds within a short time frame. [...] analgesic side effects. Hold while on IV MAJOR GIFTS MANAGER or with regular IV opioid dosing. Or oxyCODONE IR (ROXICODONE) tablet 10 mgJump to med 10 mg, Oral, EVERY 3 HOURS PRN, severe pain, Starting on Mon01/22/24 at 1632, Hold oral PRN dose for analgesic side effects. Notify provider to assess for uncontrolled pain or analgesic side effects. Hold while on IV MAJOR GIFTS MANAGER or with regular IV opioid dosing. Group [...] provider. documented in this encounter Care Teams Detailer Relationship Specialty Start Date End Date Argentina Iqbal PA-C [facility] [address] [place] [address] PCP - General Physician Muck Miner Blasting 12/19/23 documented as of this encounter
--- OUTSIDE RECORDS SUMMARY | 2024-03-06 10:35 | XMS_ITS | Clinical Summary ---
Author Organization [facility] Address [place], [place] [address] Care Team Providers Care Planer Hand Name Role Phone Pcp, No Primary Care Provider Unavailabl e Encounters Date Type Department Care Team Description 02/26/2024 Orders Only [facility] [address] [facility] [address] [place] [address] Albert Rinaldi MD <No scans attached> 01/11/2024 Lab Requisition [facility] [phone] Argentina Iqbal PA-C 01/08/2024 2:00 PM CDT Office Visit [facility] [address] [place] [address] Drea Hernandez [employer] (DUMONT check) 01/08/2024 Travel from Last 3 Months Social History Tobacco Use Types Packs/Day Years Used Date Smoking Tobacco: Never Assessed Sex and Gender Information Value Date Recorded Sex Assigned at Not on file Gender Identity Not on file Sexual Orientation Not on file Plan of Treatment Upcoming Encounters Date Type Department Care Team (Late st Contact Info) Description 04/25/2024 11:30 AM HARBORMASTER Office Visit [facility] [address] [place] [address] [place] [address] Albert Rinaldi MD [address] [place] [address] Health Maintenance Due Date Last Done Comments [...] BLD MORPHOLOGY Routine 01/10/2024 3:12 PM CDT from Last 3 Months Results * LAB TRACKING EVENT (01/10/2024 3:12 PM CDT) Other (Other) Client Collect / Unknown 01/10/2024 3:12 PM CDT 01/11/2024 1:16 PM CDT Argentina Iqbal PA-C [facility] [address] [place] [address], * PERIPHERAL BLD MORPHOLOGY (01/10/2024 3:12 PM CDT) Case Report Special Hematology Report Case: [id number] Authorizing Provider: Argentina Iqbal PA-C Collected: 01/10/2024 1512 Ordering Location: [facility] Received: 01/11/2024 1442 Pathologist: Frankie Srinivasan MD Specimen: Peripheral Blood 01/12/2024 2:27 PM CDT [employer] Cost Effective Data LABORATORY-C ENTRAL LABORATORY Final Diagnosis PERIPHERAL BLOOD: 1. Minimal thrombocytopenia 2. See comment 01/12/2024 2:27 PM CDT [employer] LABORATORY-C ENTRAL LABORATORY Comment The specific etiology of the [...] are also found in apparently healthy people, who have <10% chance of developing more significant thrombocytopenia (persistent platelet count <100 x 109/L) over 10-year follow-up. Reference: Blood 113: 2386, 2009. This case was also reviewed by Desiree Madison MT, MS ([facility]). 01/12/2024 2:27 PM T [facility] Clinical Information The patient is a 68-year-old male. Per CBC scan: Thrombocytopenia. Peripheral blood morphology September 2022 ([id number]) was within normal limits. 01/12/2024 2:27 PM T [facility]-C [facility] CBC and Differential HEMATOLOGY PARAMETERS Tested at: [facility] RESULTS EXPECTED VALUES WBC: 6.6 4.5-87h0330/cumm RBC: 4.94 4.30-5.90 mil/cumm HGB: 14.4 13.5-17.5 gm/di HCT: 42.8 37-53% MCV: 86.6 80-100 fl NORMOCYTIC MCH: 29.1 26-34 pg MCHC: 33.6 32-36 gm/dl NORMOCHROMIC RDW: 13.2 11.5-15.5% PLT: 135 [id number]/uL DECREASED Retic: 2.21 0.5-1.5% ELEVATED Differential Absolute (%) Expected (%) (x10*9/L) (x10*9/L) Neutrophils: 3.63 (55.1) 1.7-7.0 (42-72%) Lymphocytes: 2.28 (34.6) 0.9-2.9 (20-44%) Monocytes: 0.53 (8) <0.9 (0-11%) Eosinophils: 0.12 (1.8) <0.5 (0-2%) Basophils: 0.03 (.5) <0.3 (<3.0%) 01/12/2024 2:27 PM CDT [employer] Cost Effective Data LABORATORY-C ENTRAL LABORATORY Microscopic Description The final diagnosis is based on microscopic examination of an appropriately stained blood smear. 01/12/2024 2:27 PM CDT [facility] LABOR[facility]-C ENTRAL LABORATORY Additional Information Interpreted at [facility], Central Laboratory - [address] [facility] [address] [address] 01/12/2024 2:27 PM CDT [facility]- ENTRAL LABORATORY Blood (Peripheral Blood) 01/10/2024 3:12 PM CDT 01/11/2024 2:42 PM CDT Argentina Iqbal PA-C HEMATOLOGY [facility]-CENTRAL LABORATORY [address] [place] [address], from Last 3 Months Care Teams Planer Hand Relationship Specialty Start Date End Date Pcp, No . PCP - General 10/06/22
--- OUTSIDE RECORDS SUMMARY | 2024-03-06 10:35 | XMS_ITS | Encounter Summary ---
Author Organization [facility] Address [address] [place] [address] Care Team Providers Care Horse Racetrack Manager Name Role Phone Argentina Iqbal PA-C Primary Care Provider Encounter Details Date Type Department Care Team ([facility] st Contact Info) Description 01/22/2024 6:00 AM CDT Office Visit [facility] [address] [place] [address] Harriet Orozco Social History Tobacco Use Types Packs/Day Years [...] in an abandoned building, in an overnight mcfp, or couch-surfing.) Yes 01/23/2024 Are you worried [...] on filedocumented in this encounter Care Teams Horse Racetrack Manager Relationship Specialty Start Date End Date Argentina Iqbal PA-C [facility] [address] [place] [address] PCP - General Physician Camp Assistant 12/19/23 documented as of this encounter
--- OUTSIDE RECORDS SUMMARY | 2024-03-06 10:35 | XMS_ITS | Encounter Summary ---
Author Organization [facility] Address [address] [place] [id number] Care Team Providers Care Cardiology Rn Name Role Phone [place] Iqbal PA-C Primary [...] lumbar intervertebral disc with radiculopathy [M51.16] Procedures [facility] ALLOGRAFT FOR SPINE SURGERY ONLY MORSELIZED [facility] ALLOGRAFT FOR SPINE SURGERY ONLY STRUCTURAL VA AUTOGRAFT SPINE SURGERY LOCAL FROM SAME INCISION VA AUTOGRAFT SPINE SURGERY MORSELIZED SEP INCISION VA AUTOGRAFT SPINE SURGERY BICORT/TRICORT SEP INCISION VA LUMBAR SPINE FUSN,POST TECH VA SPINE FUSN,POST TECH,EA ADDNL SGMT VA LUMBAR SPINE FUSN,POST INTERBODY VA LUMB SP FUSN,POST INTERBDY,EA ADDL VA ARTHRODESIS POST/POSTEROLATRL/POSTINTERBODY LUMBAR VA ARTHRODESIS POST/POSTERLATRL/POSTINTRBDYADL SPC/SEG VA STEREOTACTIC COMP ASSIST PROC,SPINAL Bilateral Lumbar 4 to Sacral 1 Transforaminal Lumbar Interbody Fusion with Navigation [facility] [address] [place] [address] Phone: tel: fax: Referral ID Status Reason Start Date Expiration Date Visits Re quested Visits Authorized [id number] 1 1 Encounter Details Date Type Department Care Team (Late st Contact Info) Description 01/22/2024 7:50 AM CDT Anesthesia Event [facility] [address] [place] [address] Dalia Alexander MD [address] [place] [address] Anesthesia Record Procedure Summary Procedure Name Responsible Anesthesiologist Anesthesia Start Time Anesthesia Stop Time L4-5 bilateral decompressive laminectomies with medial facetectomies [...] DuraSeal and VistaSeal L4-S1 posterior lateral fusion (Bilateral: Spine) Dalia Alexander MD 01/22/24 0750 01/22/24 1210 Events Date Time Event Comment 01/22/2024 0732 HAM CLERK Ready for Procedure 0750 An Start Anesthesia Star t is defined as when the anesthesia provider assumed care, began anesthesia prep, remained continuously present with the patient, and excludes all time for performing the pre-anesthesia evaluation. The Pre-Anesthesia Evaluation was completed before Anesthesia Start. 0754 An Start Data 0755 AN REASSESS I attest that I have identified and re-evaluated the patient immediately before the induction of anesthesia and I am satisfied that the anesthetic plan is suitable for the patient's condition and procedure. The first vital signs recorded are pre- induction. Hawa Harris APRN HAM CLERK 0758 MD Present 0758 An Induction 0802 An Intubation 0802 Anesthesia Ready for Procedu re 0802 MD Present 0834 MD Present 0919 MD Present 1006 MD Present 1043 MD Present 1115 MD Present 1204 AN Extubation All extubation criteria met prior to removal. 1204 an stop data 1204 MD Present 1210 An Stop Electronically signed by Hawa Harris APRN HAM CLERK on January 22, 2024 12:10 PM Meds Name Total midazolam 1 mg/mL 2 mg fentaNYL 50 mcg/mL 100 mcg HYDROmorphone 1 mg/mL 2 mg lidocaine 2% 50 mg propofol 10 mg/mL 150 mg propofol drip mcg/kg/min 723.6 mg rocuronium 10 mg/mL 100 mg phenylephrine (SARA-SYNEPHRINE) injection 400 mcg dexamethasone (DECADRON) 4 mg/mL 8 mg ondansetron 2 mg/mL 4 mg glycopyrrolate 0.2 mg/mL 0.1 mg sugammadex (BRIDION) 200mg/2mL 200 mg ceFAZolin Sodium (ANCEF) injection 2 g 2 g LR 1,800 mL * Agents Name O2 N2O Air Exp Sevoflurane Exp Isoflurane Exp Desflurane Ins Sevoflurane Ins Isoflurane Ins Desflurane * Blood No blood administrations on file. Lines, Drains, and Airways Type Details Placement Removal Incision/Surgical Site Incision; 4; 1100; Back; x1 incision 01/22/24 1100 by Ayanna Kwon RN Peripheral IV 01/22/24; 0653; 20 G ; Left; Hand; Chlorhexidine; 1; Tolerated well 01/22/24 0653 by Azalia Pride RN 01/25/24 1301 by Inpatient, Nurse ETT Placement Date: 01/22/24; Placement Time: 08 (created via procedure documentation); Mask Ventilation: 1; Induction Type: Intravenous; Ease of Intubation: Easy; Technique: Video laryngoscopy; Tube Size: 8 mm; VL Blade Size: [place] scope 4; Grade View: 1; Adjucts: Stylet; Placement Person: HAM CLERK; Attempts: 1 01/22/24 0802 by Hawa Harris APRN HAM CLERK 01/22/24 1204 by Hawa Harris APRN HAM CLERK Urethral Catheter 01/22/24; 1058; No; Surgical procedure; 16 fr; POD 1 01/22/24 1058 by Ayanna Kwon RN 01/23/24 1251 by Angelina Orantes RN Closed/Suction Drain 01/22/24; 1101; 1; Left; Back; Bulb; 10 Albanian 01/22/24 1101 by Ayanna Kwon RN 01/25/24 0534 by Gibert, Renae, RN Closed/Suction Drain 01/22/24; 1101; 1; Right; Back; Bulb; 10 Albanian 01/22/24 1101 by Ayanna Kwon RN 01/25/24 0534 by Renae Cotton RN documented in this encounter Social History Tobacco [...] in an abandoned building, in an overnight halfway, or couch-surfing.) Yes 01/23/2024 Are you worried [...] on file documented as of this encounter OR Notes * Anesthesia Postprocedure Evaluation - Verdun, Dalia, MD - 01/22/2024 12:50 PM CDT Patient: Domingo Willoughby Procedure: Procedure(s): Bilateral Lumbar 4 to Sacral 1 Transforaminal Lumbar Interbody Fusion with Navigation Anesthesia Type: General Note: Disposition: Admission; Inpatient Postop Pain Control: Uneventful Sign Out: Well controlled pain PONV: No Neuro/Psych: Events: Altered mental status Sign Out: Other neuro status Airway/Respiratory: Uneventful Sign Out: Acceptable/Baseline resp. status CV/Hemodynamics: Uneventful Sign Out: Acceptable CV status; No obvious hypovolemia; No obvious fluid overload Other NRE: NONE DID A NON-ROUTINE EVENT OCCUR? YES Event details/Postop Comments: Patient altered, not alert to person, place, or time, with slurred speech. Difficulty following commands. Can move all extremities spontaneously. Last known normal 0800 on induction of anesthesia. On arrival to PACU, sleepy, once more awake he was confused, he never followed commands but moved all four extremities spontaneously. Code Stroke called. Signout given to ICU physician and telemedicine neurologist. Last vitals: Vitals Value Taken Time BP 139/94 01/22/24 1241 Temp 96.7 ??F (35.9 ??C) 01/22/24 1207 Pulse 89 01/22/24 1241 Resp 32 01/22/24 1241 SpO2 100 % 01/22/24 1248 Vitals shown include unfiled device data. Electronically Signed By: Dalia Alexander MD January 22, 2024 12:50 PM * Anesthesia Procedure Notes - Hawa Harris APRN HAM CLERK - 01/22/2024 8:19 AM CDTAssociated Order(s): Airway Airway Patient location during procedure: OR Procedure Start/Stop Times: 01/22/2024 8:02 AM Staff - HAM CLERK: Hawa Harris APRN HAM CLERK Performed By: HAM CLERK Consent for Airway Urgency: elective Indications and [...] Administered Medication Administration Time: 01/22/2024 8:02 AM * Anesthesia Preprocedure Evaluation - Dalia Alexander MD - 01/22/2024 6:48 AM CDT Anesthesia Pre-Procedure Evaluation Patient: Domingo Willoughby : 1955 Procedure : Procedure(s): Bilateral Lumbar 4 to Sacral 1 Transforaminal Lumbar Interbody Fusion with Navigation Past Medical History: Diagnosis Date Hypertension Sleep apnea Past Surgical History: Procedure Laterality Date COLONOSCOPY No Known Allergies Social History Tobacco Use Smoking status: Never Smokeless tobacco: Never Substance Use Topics Alcohol use: Never Wt Readings from Last 1 Encounters: 01/22/24 98.4 kg (217 lb) Anesthesia Evaluation ROS/MED HX ENT/Pulmonary: - neg pulmonary ROS Neurologic: (+) peripheral neuropathy, - lumbar radiculopathy. Cardiovascular: (+) Dyslipidemia hypertension- - - - - METS/Exercise Tolerance: Hematologic: - neg hematologic ROS Musculoskeletal: - neg musculoskeletal ROS GI/Hepatic: - neg GI/hepatic ROS Renal/Genitourinary: - neg Renal ROS Endo: (+) Obesity, Psychiatric/Substance Use: - neg psychiatric ROS Infectious Disease: - neg infectious disease ROS Malignancy: - neg malignancy ROS Other: - neg other ROS Physical Exam Airway Mallampati: II TM distance: > 3 FB Neck ROM: full Mouth opening: > 3 cm Respiratory Devices and Support Dental (+) Minor Abnormalities - some fillings, tiny chips Cardiovascular cardiovascular exam normal Rhythm and rate: regular and normal Pulmonary pulmonary exam normal breath sounds clear to auscultation OUTSIDE LABS: CBC: No results found for: WBC, HGB, HCT, PLT BMP: Lab Results Component Value Date GLC 99 01/22/2024 COAGS: No results found for: PTT, INR, FIBR POC: No results found for: BGM, HCG, HCGS HEPATIC: No results found for: ALBUMIN, PROTTOTAL, ALT, AST, GGT, ALKPHOS, BILITOTAL,BILIDIRECT, WILL OTHER: No results found for: PH, LACT, A1C, MUNA, PHOS, MAG, LIPASE, AMYLASE, TSH,T4, T3, CRP, SED Anesthesia Plan ASA Status: 3 NPO Status: NPO Appropriate Anesthesia Type: General. - Airway: ETT Induction: Intravenous. Maintenance: Balanced. Consents Anesthesia Plan(s) and associated risks, benefits, and realistic alternatives discussed. Questions answered and patient/publications sales representative(s) expressed understanding. - Discussed: Risks, Benefits and Alternatives for the PROCEDURE were discussed - Discussed with: Patient, Set Up Person Use of blood products discussed: Yes. - Discussed with: Patient. - Consented: consented to blood products Reason for refusal: other. Postoperative Care Pain management: IV analgesics, Oral pain medications. PONV prophylaxis: Ondansetron (or other 5HT-3), Dexamethasone or Solumedrol Comments: Other Comments: GETA, propofol infusion, dilaudid PRN Dalia Alexander MD I have reviewed the pertinent notes and labs in the chart from the past 30 days and (re)examined the patient. Any updates or changes from those notes are reflected in this note. # Hypertension: Home medication list includes antihypertensive(s) # Obesity: Estimated body mass index is 32.99 kg/m?? as calculated from the following: Height as of this encounter: 1.727 m (5' 8). Weight as of this encounter: 98.4 kg (217 lb). 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 Anesthesia Type: General Note: Oropharynx: oropharynx clear of all foreign objects and spontaneously breathing Level of Consciousness: drowsy Oxygen Supplementation: face mask Independent Airway: airway patency satisfactory and stable Dentition: dentition unchanged Vital Signs Stable: post-procedure vital signs reviewed and stable Report to RN Given: handoff report given Patient transferred to: PACU Handoff Report: Identifed the Patient, Identified the Reponsible Provider, Reviewed the pertinent medical history, Discussed the surgical course, Reviewed Intra-OP anesthesia mangement and issues during anesthesia, Set expectations for post-procedure period and Allowed opportunity for questions andacknowledgement of understanding Vitals: Vitals Value Taken Time BP 132/81 01/22/24 1206 Temp Pulse 78 01/22/24 1208 Resp 16 01/22/24 1208 SpO2 100 % 01/22/24 1208 Vitals shown include unfiled device data. Electronically Signed By: Hawa Harris APRN CRNA January 22, 2024 12:10 PM documented in this encounter Plan of Treatment Not on file documented as of this encounter Procedures Procedure Name Priority Date/Time Associated Diagnosis Comments ANE AIRWAY ETT PERFORMABLE Routine 01/22/2024 8:02 AM CDT documented in this encounter Results * ANE AIRWAY ETT PERFORMABLE (01/22/2024 8:02 AM CDT) Narrative Hawa Harris APRN CRNA - 01/22/2024 8:02 AM CDT Hawa Harris APRN CRNA 01/22/2024 8:19 AM Airway Patient location during procedure: OR Procedure Start/Stop Times: 01/22/2024 8:02 AM Staff - HAM CLERK: Hawa Harris APRN CRNA Performed By: MARYLU Consent for Airway Urgency: elective Indications and [...] Time: 01/22/2024 8:02 AM Dalia Alexander MD [facility] Final Result documented in this encounter Visit Diagnoses Not on filedocumented in this encounter Administered Medications Inactive Administered Medications - up to 3 most recent administrations Medication Order MAR Action Action Date Dose Rate Site ceFAZolin Sodium (ANCEF) injection 2 g Routine, 2 g, Intravenous, PRE-OP/PRE-PROCEDURE, Starting on Mon01/22/24 at 0549, For 1 dose, Give first dose within 1 hour PRIOR to incision. If patient weight is greater than or equal to 120 kg increase dose to 3 g., Indications: Perioperative Pharmacoprophylaxis, Pre-procedureIndications:Perioperat parisa Pharmacoprophylaxis $Given 01/22/2024 7:50 AM CDT 2 g dexAMETHasone (DECADRON) injection Intravenous, PRN, Administer over 1 Minutes, Starting on Mon01/22/24 at 0759, Anesthesia Intra-op $Given 01/22/2024 7:59 AM CDT 8 mg fentaNYL (PF) (SUBLIMAZE) injection Intravenous, PRN, Administer over 3-5 Minutes, Starting on Mon01/22/24 at 0758, Anesthesia Intra-op $Given 01/22/2024 7:58 AM CDT 100 mcg glycopyrrolate (ROBINUL) injection Intravenous, PRN, Administer over 1-2 Minutes, Starting on Mon01/22/24 at 0811, Anesthesia Intra-op $Given 01/22/2024 8:11 AM CDT 0.1 mg HYDROmorphone (DILAUDID) injection Intravenous, PRN, Starting on Mon01/22/24 at 0832, Anesthesia Intra-op $Given 01/22/2024 10:06 AM CDT 0.5 mg $Given 01/22/2024 9:48 AM CDT 0.5 mg $Given 01/22/2024 8:32 AM CDT 1 mg lactated ringers infusion Intravenous, CONTINUOUS PRN, Anesthesia Intra-op, Starting on Mon01/22/24 at 0750, Until Mon01/22/24 at 1210 $New Bag 01/22/2024 9:49 AM CDT $New Bag 01/22/2024 7:50 AM CDT lidocaine 2% injection (MDV) Intravenous, PRN, Starting on Mon01/22/24 at 0758, Anesthesia Intra-op $Given 01/22/2024 7:58 AM CDT 50 mg midazolam (VERSED) injection Intravenous, Administer over 2 Minutes, PRN, Starting on Mon01/22/24 at 0752, Anesthesia Intra-op $Given 01/22/2024 7:52 AM CDT 2 mg ondansetron (ZOFRAN) injection Intravenous, PRN, Administer over 2-5 Minutes, Starting on Mon01/22/24 at 1115, Anesthesia Intra-op $Given 01/22/2024 11:15 AM CDT 4 mg phenylephrine (SARA-SYNEPHRINE) injection Intravenous, CONTINUOUS PRN, Starting on Mon01/22/24 at 0836, Anesthesia Intra-op $Bolus 01/22/2024 8:59 AM CDT 100 mcg $Bolus 01/22/2024 8:56 AM CDT 100 mcg $Bolus 01/22/2024 8:45 AM CDT 100 mcg propofol (DIPRIVAN) infusion Intravenous, CONTINUOUS PRN, Starting on Mon01/22/24 at 0814, Anesthesia Intra-op $New Bag 01/22/2024 8:14 AM CDT 50 mcg/kg/min 24.12 mL/hr propofol (DIPRIVAN) injection 10 mg/mL vial Intravenous, PRN, Starting on Mon01/22/24 at 0758, Anesthesia Intra-op $Given 01/22/2024 7:58 AM CDT 150 mg rocuronium injection Intravenous, PRN, Starting on Mon01/22/24 at 0759, Anesthesia Intra-op $Given 01/22/2024 10:57 AM CDT 10 mg $Given 01/22/2024 9:55 AM CDT 10 mg $Given 01/22/2024 8:59 AM CDT 10 mg sugammadex (BRIDION) injection Intravenous, PRN, Starting on Mon01/22/24 at 1150, Anesthesia Intra-op $Given 01/22/2024 11:50 AM CDT 200 mg documented in this encounter Care Teams Cardiology Rn Relationship Specialty Start Date End Date [place] Iqbal PA-C [facility] [place]NOTE 2[place] [address] [place] [address] PCP - General Physician Chief Operating Engineer 12/19/23 documented as of this encounter
--- NOTE | 2024-03-06 10:45 | CRLHL7_ITS ---
For Patients: As a result of the Century Cures Act, medical imaging exams and procedure reports are released immediately into your electronic medical record. You may view this report before your referring provider. If you have questions, please contact your health care provider. INDICATION: Abdominal distention COMPARISON: none TECHNIQUE: Real time prakash scale imaging and color Doppler analysis was performed of the right upper quadrant. FINDINGS: The visualized liver echotexture is diffusely increased. A simple cyst is present within the left hepatic lobe measuring 1.6 x 1.4 x 1.2 cm. Visualized aorta is normal. The IVC and pancreas are not well visualized due to overlying bowel gas. There is no evidence of ascites. The gallbladder is of normal size and there is no evidence of intraluminal stones or sludge. The gallbladder wall measures 1.9 mm in thickness. The common bile duct is of normal size and measures 3.1 mm in diameter at the level of the ann hepatis. Simple cyst right kidney measures 1.5 x 1.4 x 1.4 cm. Additional cyst right kidney containing a thin internal septation noted measuring 1.7 x 1.3 x 1.2 cm. A 3rd right kidney cyst measures 1.6 x 1.3 x 1.5 cm. IMPRESSION: Diffuse hepatic steatosis with incidental intrahepatic cyst. Patchy areas of sparing noted adjacent to the gallbladder. Normal gallbladder. No biliary obstruction. Multiple Bosniak 1/2 right renal cysts which do not require follow-up. Dictated by David Lindsey MD @ 03/06/2024 12:06:56 PM (Electronically Signed)
== END 2024-03-06 10:33 | disposition home or self-care (01) ==
LOC: US 10:33
PROVIDERS: PCP Physician Assistant Medical; Visit Provider Physician Assistant Medical
DX: R14.0 Abdominal distension (gaseous) (principal); K76.0 Fatty (change of) liver, not elsewhere classified; N28.1 Cyst of kidney, acquired; K76.89 Other specified diseases of liver
CPT/HCPCS: 76705

== ENCOUNTER 2024-05-27 10:40 | Outpatient (CLI) | payer OTHER, SELFPAY | END 2024-05-27 10:41 | disposition home or self-care (01) | PROVIDERS: PCP Physician Assistant Medical; Visit Provider Physician Assistant Medical | DX: R63.4 Abnormal weight loss (principal); R10.9 Unspecified abdominal pain; I10 Essential (primary) hypertension | CPT/HCPCS: 80053; 83690; 84443 ==

== ENCOUNTER 2024-05-28 08:57 | Outpatient (CLI) | payer OTHER, SELFPAY | END 2024-05-28 08:58 | disposition home or self-care (01) | LOC: NFLDREF 06-01 02:39 | PROVIDERS: PCP Physician Assistant Medical; Referring Provider Physician Assistant Medical; Visit Provider Physician Assistant Medical | DX: R10.9 Unspecified abdominal pain (principal); R63.4 Abnormal weight loss | CPT/HCPCS: 87338 ==

== ENCOUNTER 2024-06-03 13:54 | Outpatient (CLI) | payer OTHER, SELFPAY | END 2024-06-03 13:55 | disposition home or self-care (01) | PROVIDERS: PCP Physician Assistant Medical; Visit Provider Physician Assistant Medical | DX: R10.9 Unspecified abdominal pain (principal); N40.0 Benign prostatic hyperplasia without lower urinary tract symptoms; N28.1 Cyst of kidney, acquired; K40.90 Unilateral inguinal hernia, without obstruction or gangrene, not specified as recurrent; R91.8 Other nonspecific abnormal finding of lung field; R63.4 Abnormal weight loss | CPT/HCPCS: 71260; 74177; Q9967 ==

== ENCOUNTER 2024-06-17 06:29 | Outpatient (CLI) | payer OTHER, SELFPAY ==
--- NOTE | 2024-06-17 07:36 | W.ANESCHARGE ---
Anesthesia Charges Start Date/Time Anesthesia Start Date: 06/17/24 Anesthesia Start Time: 07:15 Stop Date/Time Anesthesia Stop Date: 06/17/24 Anesthesia Stop Time: 07:30 Coding CPT Codes CPT Codes: ANES UPR GI NDSC PX NOS - 25620 ([id number]) P2 - PATIENT W/MILD SYST DISEASE, QX - CHIEF PSYCHOLOGY SVC W/ MD MED DIRECTION, QK - FOOD AND NUTRITION SERVICES SUPERVISOR 2-4 CNCRNT ANES PROC
--- NOTE | 2024-06-17 08:32 | W.ANESCHARGE ---
Anesthesia Charges Start Date/Time Anesthesia Start Date: 06/17/24 Anesthesia Start Time: 07:15 Stop Date/Time Anesthesia Stop Date: 06/17/24 Anesthesia Stop Time: 07:30 Coding CPT Codes CPT Codes: ANES UPR GI NDSC PX NOS - 88734 ([id number]) QK - CAMP DIRECTOR 2-4 CNCRNT ANES PROC, QX - HEADING MAKER SVC W/ MD MED DIRECTION, P2 - PATIENT W/MILD SYST DISEASE
== END 2024-06-17 06:30 | disposition home or self-care (01) ==
LOC: OP CLINIC 06:29
PROVIDERS: PCP Physician Assistant Medical; Visit Provider Internal Medicine
DX: R10.13 Epigastric pain (principal)
CPT/HCPCS: 00731; 43239; 88305; T1013; J0461; J2704; J3490

== ENCOUNTER 2024-11-28 08:43 | Outpatient (CLI) | payer OTHER, SELFPAY | END 2024-11-28 08:44 | disposition home or self-care (01) | PROVIDERS: PCP Physician Assistant Medical; Visit Provider Physician Assistant Medical | DX: Z00.00 Encounter for general adult medical examination without abnormal findings (principal); E78.5 Hyperlipidemia, unspecified; I10 Essential (primary) hypertension; Z13.21 Encounter for screening for nutritional disorder; Z12.5 Encounter for screening for malignant neoplasm of prostate | CPT/HCPCS: 80053; 80061; 82043; 82306; 82570; 84443; G0103 ==